=== PATIENT | female | born 1935 | race Caucasian/White ===

== ENCOUNTER 2019-09-11 01:08 | Emergency (ER) | payer OTHER, SELFPAY ==
--- NOTE | ~2019-09-11 | XR_ITS ---
XR chest 2V DATE: 09/11/2019 01:46 INDICATION: Shortness of breath TECHNIQUE: AP and lateral views COMPARISON: 01/03/2018 PA and lateral chest FINDINGS: There is bilateral hyperinflation, consistent with COPD. No pulmonary infiltrate or consolidation, pleural effusion or pulmonary vascular congestion or pneumo thorax. Normal heart size. No hilar or mediastinal enlargement. Scoliosis and degenerative change of the thoracic spine. IMPRESSION: COPD; no active cardiopulmonary disease Reviewed, dictated and finalized at location A.
[2019-09-11 01:07] VITALS: BP 161/67; PULSE 104; RESP 20; TEMP 36.8; O2SAT 96
--- NOTE | 2019-09-11 01:13 | ECG_ITS ---
Measurements Intervals [place] Rate: 100 P: 76 MS: 189 QRS: 74 QRSD: 89 T: 66 QT: 338 QTc: 436 Interpretive Statements SINUS TACHYCARDIA INCOMPLETE RIGHT BUNDLE BRANCH BLOCK BORDERLINE ECG Electronically Signed On 09-11-2019 7:04:59 CDT by Reji Collier D.O.
[2019-09-11 01:21] VITALS: PULSE 88; O2SAT 99
--- NOTE | 2019-09-11 01:31 | ED.SOB ---
HPI - SOB/Dyspnea General Chief Complaint: Shortness of Breath/Dyspnea Stated Complaint: sob Time Seen by Provider: 09/11/19 01:22 History of Present Illness HPI Narrative: Patient presents via EMS for severe shortness of breath at home. She woke up and was having an asthma attack. Her at home inhalers were not working. She got an albuterol treatment in route. She feels entirely better. She said that the albuterol is a new inhaler that does not work as well as the old one. She does not have a nebulizer at home. She has not been sick in the last 2 weeks. Particularly she denies fever chills and sweats. She has no pain. MD elicited complaint: shortness of breath and asthma attack Pertinent past history: asthma Onset (ago): hour(s) Timing: now resolved Severity: moderate Exacerbating factors: other (Unknown) Relieving factors: bronchodilators Known history of: asthma Associated symptoms: denies other symptoms Treatment prior to arrival: bronchodilator Related Data Allergies Allergy/AdvReac Type Severity Reaction Status Date / Time No Known Allergies Allergy Verified 05/10/18 08:56 Review of Systems Review of Systems: Narrative: CONSTITUTIONAL: Denies fever, chills, or sweats. EYES: Denies visual changes, redness, or discharge. ENT: Denies rhinorrhea, congestion, sore throat, or otalgia. CARDIOVASCULAR: Denies chest pain, palpitations, or edema. RESPIRATORY: She had dyspnea. GASTROINTESTINAL: Denies abdominal pain, nausea, vomiting, or diarrhea. GENITOURINARY: Denies dysuria or hematuria. SKIN: Denies rash or itching. MUSCULOSKELETAL: Denies back pain, joint pain, or myalgia. NEUROLOGIC: Denies headache, numbness, or weakness. All systems reviewed & are unremarkable except as noted in HPI and below PMFSH Past Medical History Medical History (Updated 09/11/19 @ 01:33 by Katherine Lynch MD) Asthma with exacerbation Family History Family History (Updated 10/03/13 @ 07:13 by DOCTOR UNKNOWN) Mother Hypertension Family history of Alzheimer's disease Father Family history of heart disease in male family member before age 55 Social History Social History Smoking status: Never smoker Alcohol intake: never Exam Narrative: Exam Narrative: GENERAL: Well-appearing, well-nourished, and in no acute distress. Perez roots are growing out. HEAD: Normocephalic, atraumatic. EYES: PERRLA and EOMI. ENT: Nares clear, no rhinorrhea or epistaxis. Mucous membranes moist. NECK: Supple. CHEST: Clear to auscultation. No respiratory distress. HEART: Regular rate and rhythm. No murmur heard. Normal peripheral pulses. ABDOMEN: Soft, nontender, nondistended, normal active bowel sounds. EXTREMITIES: Normal range of motion. No edema. SKIN: Warm, dry, no rash. NEURO: No focal deficits. Alert and oriented x3. PSYCH: Normal mood and affect. Course Vital Signs Vital signs: Vital Signs Temperature 98.2 F 09/11/19 01:07 Pulse Rate 104 H 09/11/19 01:07 Respiratory Rate 09/11/19 01:07 Blood Pressure 161/67 H 09/11/19 01:07 Pulse Oximetry 96 09/11/19 01:07 Temperature 98.2 F 09/11/19 01:07 Pulse Rate 104 H 09/11/19 01:07 Respiratory Rate 09/11/19 01:07 Blood Pressure 161/67 H 09/11/19 01:07 Pulse Oximetry 96 09/11/19 01:07 MDM - SOB/Dyspnea Differential Diagnosis Differential diagnosis: Likely asthma with exacerbation Medical Records Attestation: I reviewed the patient's medical records. Lab Data Attestation: I reviewed the patient's lab results. Result diagrams: 09/11/19 01:25 09/11/19 01:25 Labs: Lab Results 09/11/19 09/11/19 Range/Units 01:25 01:25 WBC 6.6 (4.5-10.0) K/mm3 RBC 3.98 L (4.2-5.4) M/mm3 Hgb 12.7 (12.0-15.0) g/dL Hct 39.2 (37.0-47.0) % MCV 98.5 (80-100) fl MCH 31.9 (26-34) pg MCHC 32.4 (32-36) g/dl RDW 13.1 (11.5-14.5) % Plt Count 194 (150-375) k/mm3 MPV 9.7 (7.4-10.4) fl Bernadine
[2019-09-11 01:32] LABS: Basophils Percent Auto 0.5 % (0.2-1.2); Eosinophils Absolute Auto 0.4 K/mm3 (0-0.3); Eosinophils Percent Auto 5.5 % (0-4.4); Hematocrit 39.2 % (37.0-47.0); Hemoglobin 12.7 g/dL (12.0-15.0); Immature Granulocyte Absolute 0.01 K/mm3 (0.00-0.031); Immature Granulocyte Percent A 0.2 % (0-0.5); Lymphocytes Absolute Auto 2.45 K/mm3 (0.9-3.2); Lymphocytes Percent Auto 37.4 % (18.3-44.2); Mean Corpuscular HGB Conc 32.4 g/dl (32-36); Mean Corpuscular Hemoglobin 31.9 pg (26-34); Mean Corpuscular Volume 98.5 fl (80-100); Mean Platelet Volume 9.7 fl (7.4-10.4); Monocytes Absolute Auto 0.6 K/mm3 (0.1-0.6); Monocytes Percent Auto 8.5 % (2.6-8.5); Neutrophils Absolute Auto 3.1 K/mm3 (1.3-6.7); Neutrophils Percent Auto 47.9 % (45.5-73.1); Platelet Count Result 194 k/mm3 (150-375); Red Blood Count 3.98 M/mm3 (4.2-5.4); Red Cell Distribution Width 13.1 % (11.5-14.5); White Blood Count 6.6 K/mm3 (4.5-10.0)
[2019-09-11 01:43] LABS: Anion Gap 13.6 mmol/L (7-16); Blood Urea Nitrogen 28 mg/dL (7-17); Calcium 8.8 mg/dL (8.4-10.2); Carbon Dioxide 24 mmol/L (22-30); Chloride 105 mmol/L (98-107); Estimated CRCL calculation 34 ml/min; Estimated Glomerular Filt Rate 53; Glucose 95 mg/dL (65-105); Potassium 3.6 mmol/L (3.4-5.0); Sodium 139 mmol/L (137-145)
[2019-09-11 02:34] VITALS: BP 138/63; PULSE 88; RESP 15; O2SAT 98
[2019-09-11 03:21] VITALS: BP 138/63; PULSE 85; RESP 14; TEMP 36.5; O2SAT 99
== END 2019-09-11 03:23 | disposition home or self-care (01) ==
PROVIDERS: Emergency Provider Emergency Medicine; PCP Physician Assistant
DX: J45.901 Unspecified asthma with (acute) exacerbation (principal); R00.0 Tachycardia, unspecified
CPT/HCPCS: 36415; 71046; 80048; 85025; 93005; 99284

== ENCOUNTER 2019-09-27 17:44 | Inpatient (IN) | payer OTHER, SELFPAY ==
[2019-09-27] VITALS (7 sets, daily range): BP systolic 135–167; BP diastolic 83–102; PULSE 94–107; RESP 20–24; TEMP 36.3–36.5; O2SAT 88–100; BMI 23.3
--- NOTE | ~2019-09-27 | XR_ITS ---
EXAMINATION: XR chest 2V DATE: 09/27/2019 18:56 INDICATION: Asthma presenting with shortness of breath one day post cataract surgery. TECHNIQUE: frontal and lateral views of the chest were obtained. COMPARISON: Chest radiograph dated 09/11/2019 FINDINGS: Chronic biapical pleural-parenchymal scarring. New subtle opacities at the posterior medial right sergio g base which could represent atelectasis or pneumonia. No pleural effusion or pneumothorax The cardio mediastinal silhouette is normal. Thoracic kyphosis with severe spondylosis and chronic mild anterior wedging of a few mid thoracic vertebral bodies. IMPRESSION: 1. New subtle opacities at the posterior medial right lower lobe which could represent atelectasis an d/or pneumonia. Reviewed, dictated and finalized at location A. IMPRESSION: 1. New subtle opacities at the posterior medial right lower lobe which could re present atelectasis and/or pneumonia.
--- NOTE | ~2019-09-27 | CT_ITS ---
EXAMINATION: CTA chest PE protocol DATE: 09/27/2019 22:18 INDICATION: Shortness of breath. Pneumonia. TECHNIQUE: Computed tomography (CT) pulmonary angiogram of the chest was performed with 100 mL Omnipa que-350 intravenous contrast. Additional 3D reconstructions utilizing coronal maximum intensity proje ction (MIP) were performed. Automated exposure control and iterative reconstruction technique were em ployed. The dose-length product was 288.61 mGy-cm. COMPARISON: None FINDINGS: Excellent contrast opacification of the pulmonary arteries. There is mild streak artifact from dense contrast in the superior vena cava and right atrium. Minimal scattered respiratory motion artifact wh ich does not significantly limit evaluation. No pulmonary embolism. Biapical pleural-parenchymal scar ring. Additional mild discoid atelectasis in the posterior aspect of the bilateral lower lobes. Mild septal line thickening at the lung bases consistent with minimal pulmonary edema. Diffuse bronchial w all thickening with scattered mucous plugging consistent with bronchitis. No pneumonia, pleural effus ion or pneumothorax. Heart size is normal. No pericardial effusion. Thoracic aorta is normal in calib er. No pathologically enlarged abdominal or pelvic lymphadenopathy. Thoracic kyphosis with moderate s pondylosis. IMPRESSION: 1. No pulmonary embolism. 2. Diffuse bronchitis with scattered mucous plugging but without focal pneumonia. 3. Mild discoid atelectasis and minimal pulmonary edema at the lung bases. Reviewed, dictated and finalized at location A. IMPRESSION: 1. No pulmonary embolism. 2. Diffuse bronchitis with scattered mucous plugging but without focal pneumoni a. 3. Mild discoid atelectasis and minimal pulmonary edema at the lung bases.
--- NOTE | 2019-09-27 17:52 | ECG_ITS ---
Measurements Intervals [place] Rate: 100 P: 80 AK: 188 QRS: -28 QRSD: 106 T: 74 QT: 347 QTc: 449 Interpretive Statements SINUS TACHYCARDIA INCOMPLETE RIGHT BUNDLE BRANCH BLOCK BASELINE ARTIFACT- I, II, AVL, V1-V2 BORDERLINE ECG Electronically Signed On 09-27-2019 19:37:38 CDT by Reji Collier D.O.
[2019-09-27 18:17] LABS: Basophils Percent Auto 0.4 % (0.2-1.2); Eosinophils Absolute Auto 0.3 K/mm3 (0-0.3); Eosinophils Percent Auto 4.3 % (0-4.4); Hematocrit 41.2 % (37.0-47.0); Hemoglobin 13.4 g/dL (12.0-15.0); Immature Granulocyte Absolute 0.02 K/mm3 (0.00-0.031); Immature Granulocyte Percent A 0.3 % (0-0.5); Lymphocytes Percent Auto 22.9 % (18.3-44.2); Mean Corpuscular HGB Conc 32.5 g/dl (32-36); Mean Corpuscular Hemoglobin 31.5 pg (26-34); Mean Corpuscular Volume 96.9 fl (80-100); Mean Platelet Volume 9.7 fl (7.4-10.4); Monocytes Absolute Auto 0.6 K/mm3 (0.1-0.6); Monocytes Percent Auto 8.2 % (2.6-8.5); Neutrophils Absolute Auto 4.7 K/mm3 (1.3-6.7); Neutrophils Percent Auto 63.9 % (45.5-73.1); Platelet Count Result 216 k/mm3 (150-375); Red Blood Count 4.25 M/mm3 (4.2-5.4); White Blood Count 7.4 K/mm3 (4.5-10.0)
[2019-09-27 18:30] LABS: Anion Gap 6 mmol/L (8-16); Blood Urea Nitrogen 19 mg/dL (7-17); Carbon Dioxide 23 mmol/L (22-30); Chloride 108 mmol/L (98-107); Estimated CRCL calculation 41 ml/min; Estimated Glomerular Filt Rate > 60; Glucose 150 mg/dL (65-105); Potassium 4.5 mmol/L (3.4-5.0); Sodium 137 mmol/L (137-145)
--- NOTE | 2019-09-27 19:55 | PC.NURSE ---
PT AMBULATED IN ROOM ON ROOM AIR. C/O SOB. 02 SAT 88-93% ON ROOM AIR.
--- NOTE | 2019-09-27 20:14 | ED.SOB ---
HPI - SOB/Dyspnea General Chief Complaint: Shortness of Breath/Dyspnea Stated Complaint: SOB Time Seen by Provider: 09/27/19 19:07 History of Present Illness HPI Narrative: Patient is an 84-year-old female who presents ER with shortness of breath. Patient reports she had applied some eyedrops to her eyes started last evening when she then developed shortness of breath and a runny nose. Patient reports shortness of breath is mildly improved. She used her inhaler with minimal improvement originally. No chest pain at this time. Patient reports she had a surgery yesterday to remove film from the front of her eye after cataract surgery some years ago. No history of blood clots. Denies fevers or chills or sweats. She does have a new runny nose. She did not receive COVID prescreening prior to her procedure. Related Data Home Medications Medication Instructions Recorded Confirmed albuterol sulfate 2 puff INHALATION Q6H PRN 09/27/19 09/28/19 benazepril 40 mg PO DAILY 09/27/19 09/28/19 fluticasone propionate 1 spray INTRANASAL DAILY 09/27/19 09/28/19 hydrochlorothiazide 25 mg PO DAILY 09/27/19 09/28/19 inhalational spacing device 09/27/19 09/28/19 [[facility] Patel [facility]] loratadine 10 mg PO DAILY 09/27/19 09/28/19 meclizine 25 mg PO TID PRN 09/27/19 09/28/19 metformin 1,000 mg PO DAILY 09/27/19 09/28/19 phenytoin sodium extended 100 mg PO QAM 09/27/19 09/28/19 simvastatin 80 mg PO QAM 09/27/19 09/28/19 phenytoin sodium extended 200 mg PO HS 09/28/19 09/28/19 Allergies Allergy/AdvReac Type Severity Reaction Status Date / Time No Known Allergies Allergy Verified 09/27/19 18:00 Review of Systems Review of Systems: All systems reviewed & are unremarkable except as noted in HPI and below Constitutional: Constitutional: Denies chills, Denies fever(s) and Reports weakness ENT: Reports nasal congestion and Denies sore throat Cardiovascular: Cardiovascular: Denies chest pain and Denies radiating jaw, neck or arm pain Respiratory: Respiratory: Denies cough, Reports dyspnea and Reports wheezing Gastrointestinal: Gastrointestinal: Denies abdominal pain, Denies nausea and Denies vomiting PMF Past Medical History Medical History (Updated 09/28/19 @ 03:18 by Binh Bean MD) Asthma Diabetes type 2, controlled Essential hypertension GERD (gastroesophageal reflux disease) Hyperlipidemia Kidney stones 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 She has not had a seizure in 15 years. 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 She does not feel she would want have cardiopulmonary resuscitation if her heart were to stop. She would not want to be on a ventilator even for short term. Smoking status: Never smoker Alcohol intake: never Substance use: never Additional living arrangements comments: The patient lives in her own home. Her adult son lives with her. She has 2 daughters and 1 son. She is independent in her activities of daily living and does her own law
--- NOTE | 2019-09-27 22:30 | ADMGEN ---
This patient, Norma Chinchilla, was admitted to 3 Med Surg Room 330-01. Patient/family oriented to hospital policies and general routines including ID bracelet, bed and alarms, visiting hours, pain management, procedures, bathroom and other care routines, personal items, smoking policy, room service/diet, and visiting hours. Valuables list has been completed. Information on how to activate the Rapid Response Team has been discussed. Patient/Family are encouraged to report perceived risks to care and to ask questions if they do not understand what they are told or what they should do.
--- NOTE | 2019-09-27 23:33 | PM.IMHP ---
H&P: HPI History of Present Illness Date/Time: 09/27/19 21:20 Chief complaint: sudden shortness of breath Narrative: Norma Chinchilla is a 84 year old female with a past medical history of asthma since childhood who presented to the ER via EMS with sudden onset of shortness of breath. The patient reports that she had at surgery on 09/26/2019 to correct scarring from her prior cataract procedure. She had applied her steroid eye drops to her eyes and almost immediately thereafter became acutely short of breath. She denied having any cough for congestion until she arrived in the ER at which time she did have some nonproductive coughing. She had received 2 nebulizer treatments in route to the ER. She reports that her chest feels tight in almost burning like she feels if she works out to side too much. She also reports that she has had similar symptoms in the past with anxiety attacks and told nursing staff that she felt as if she may be having an anxiety attack. She denies any recent ill contacts and has been social distancing. Her son works as a [employer] mixer /concrete mixer truck driver and his been working in the community. He has not been ill. She denies any fevers or chills. She has not had any nausea or vomiting. She has had a good appetite without changes in her sense of taste or smell. She denies changes in her bowel habits, hematochezia or melena. She does have a history of colon polyps and is a little bit overdue for her repeat colonoscopy. She does have occasional stress urinary incontinence and wears pads daily. She is independent in her activities of daily living in usually does her own yard work and housework. She does have type 2 diabetes but her glucoses have been well controlled her last Accu-Chek at home was 92. She reports that she uses her rescue inhaler to her 3 times a day at home but it does not seem to provide much help. She has never been intubated due to her asthma. She was referred to a jewelry salesperson recently but has not heard back from the jewelry salesperson office regarding an appointment. Review of Systems Review of Systems: Narrative: 12 systems were reviewed with pertinent positives and negatives per HPI. Except as documented in the HPI, all other systems were reviewed and are negative. [facility] Past Medical History Medical History (Updated 09/28/19 @ 03:18 by Binh Bean MD) Asthma Diabetes type 2, controlled Essential hypertension GERD (gastroesophageal reflux disease) Hyperlipidemia Kidney stones 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 She has not had a seizure in 15 years. 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 She does not feel she would want have cardiopulmonary resuscitation if her heart were to stop. She would not want to be on a ventilator even for short term. Smoking status: Never smoker Alcohol intake: never Substance use: never Additional living arrangements comments: The patient lives in her own home. Her adult son lives with her. She has 2 daughters and 1 son. She is independent in her activities of daily living and does her own lawn and house care. Additional occupation/education comments: Homemaker Gender identity (if verbalized by the patient): Female Spiritual care concerns:
[2019-09-28] VITALS (9 sets, daily range): BP systolic 100–134; BP diastolic 46–85; PULSE 81–102; RESP 16–20; TEMP 36.4–37.1; O2SAT 88–98
[2019-09-28] MEDS: guaiFENesin 12 HR 600 MG TABCR 1200 MG PO ×3 (00:39→21:06)
[2019-09-28 08:16] LABS: Basophils Percent Auto 0.1 % (0.2-1.2); Hematocrit 40.9 % (37.0-47.0); Hemoglobin 13.7 g/dL (12.0-15.0); Immature Granulocyte Absolute 0.03 K/mm3 (0.00-0.031); Immature Granulocyte Percent A 0.3 % (0-0.5); Lymphocytes Absolute Auto 1.48 K/mm3 (0.9-3.2); Lymphocytes Percent Auto 15.5 % (18.3-44.2); Mean Corpuscular HGB Conc 33.5 g/dl (32-36); Mean Corpuscular Hemoglobin 32.1 pg (26-34); Mean Corpuscular Volume 95.8 fl (80-100); Monocytes Absolute Auto 0.7 K/mm3 (0.1-0.6); Monocytes Percent Auto 7.8 % (2.6-8.5); Neutrophils Absolute Auto 7.3 K/mm3 (1.3-6.7); Neutrophils Percent Auto 76.3 % (45.5-73.1); Platelet Count Result 208 k/mm3 (150-375); Red Blood Count 4.27 M/mm3 (4.2-5.4); Red Cell Distribution Width 12.9 % (11.5-14.5); White Blood Count 9.5 K/mm3 (4.5-10.0)
[2019-09-28 08:26] LABS: Glucose Point of Care 95 (65-105)
[2019-09-28 08:55] LABS: Alanine Aminotransferase 19 U/L (4-35); Albumin Level 3.9 g/dL (3.5-5.1); Alkaline Phosphatase 127 U/L (38-126); Anion Gap 6 mmol/L (8-16); Aspartate Amino Transferase 41 U/L (14-36); Bilirubin,Total 0.3 mg/dL (0.2-1.3); Blood Urea Nitrogen 17 mg/dL (7-17); CRP < 0.5 mg/dL (<1.0); Calcium 8.8 mg/dL (8.4-10.2); Carbon Dioxide 24 mmol/L (22-30); Chloride 106 mmol/L (98-107); Estimated CRCL calculation 41 ml/min; Estimated Glomerular Filt Rate > 60; Glucose 106 mg/dL (65-105); Lactate Dehydrogenase 458 U/L (313-618); Potassium 4.5 mmol/L (3.4-5.0); Sodium 136 mmol/L (137-145)
[2019-09-28] MEDS: SIMVASTATIN 20 MG TABLET 80 MG PO (09:23)
[2019-09-28] MEDS: PHENYTOIN SODIUM 100 MG CAP PO ×2 (09:23→12:33)
[2019-09-28] MEDS: metFORMIN HCL 500 MG TABLET 1000 MG PO (09:23)
[2019-09-28] MEDS: ENOXAPARIN 40 MG/0.4 ML SYRINGE SUB-Q (09:23)
[2019-09-28] MEDS: LORATADINE 10 MG TABLET PO (09:24)
[2019-09-28] MEDS: lisinopriL 20 MG TABLET 40 MG PO (09:24)
[2019-09-28] MEDS: FLUTICASONE PROPIONATE 0.05% NA SPR 16 GM BTL (*BKC) 1 SPRAY NASAL (09:24)
[2019-09-28] MEDS: hydroCHLOROthiazide 25 MG TABLET PO (09:24)
--- NOTE | 2019-09-28 12:06 | PM.IMPN ---
Progress Note: A&P Assessment and Plan (1) Acute respiratory failure with hypoxia: Code(s): J96.01 - Acute respiratory failure with hypoxia Status: Acute Assessment and Plan: Due to acute bronchitis and mucus plugging. Patient was hypoxic to 88% with ambulation. She is currently maintaining adequate oxygenation on 2L. Scheduled albuterol inhalers and Spiriva Discontinue IV Decadron as patient is covid negative. Will begin PO Prednisone Mucolytic therapy Wean oxygen as tolerated to maintain saturations greater than 92% (2) Acute bronchitis: Qualifiers: Bronchitis organism: unspecified organism Qualified Code(s): J20.9 - Acute bronchitis, unspecified Code(s): J20.9 - Acute bronchitis, unspecified Status: Acute Assessment and Plan: CTA shows diffuse bronchitis with scattered mucus plugging. Mucinex bid Discontinue antibiotics. Most likely viral in origin. (3) Asthma with exacerbation: Qualifiers: Asthma persistence: unspecified Asthma severity: moderate Qualified Code(s): J45.901 - Unspecified asthma with (acute) exacerbation Code(s): J45.901 - Unspecified asthma with (acute) exacerbation Status: Acute Assessment and Plan: Patient had chest tightness and wheezing. Hypoxic initially and requiring 2L O2. Transition to nebulized albuterol as patient is COVID negative. Spiriva D/c dexamethasone. Begin PO Prednisone taper Wean oxygen as tolerated. (4) Tachycardia: Code(s): R00.0 - Tachycardia, unspecified Status: Acute Assessment and Plan: Patient intermittently tachycardic. Given tachycardia and hypoxia, CTA was performed and was negative for pulmonary embolism. Tachycardia has improved. Suspect this may related to albuterol. monitor heart rate (5) COVID-19 ruled out by laboratory testing: Code(s): Z03.818 - Encounter for observation for suspected exposure to other biological agents ruled out Status: Acute Assessment and Plan: tested negative on 09/27/2019. Discontinue isolation precautions (6) Diabetes type 2, controlled: Code(s): E11.9 - Type 2 diabetes mellitus without complications Status: Acute Assessment and Plan: Blood sugars were reviewed and are well controlled. Continue accuchecks ACHS and hypoglycemic protocol (7) Essential hypertension: Code(s): I10 - Essential (primary) hypertension Status: Acute Assessment and Plan: Blood pressures were reviewed and are stable. Continue lisinopril and HCTZ Subjective Date/time seen: 09/28/19 12:06 Interval history: Date of service: 09/28/2019 Patient is an 84-year-old female with history of asthma, DM, HTN, and HLD who is here for shortness of breath. She reports that she is feeling better today. Her shortness of breath has improved a bit but she still is having VIDES. She endorses orthopnea. She denies wheezing but notes she was wheezing yesterday. She has no chest tightness. She denies cough. She denies any chest pain or palpitations. She denies cough or congestion. She denies any reflux symptoms. She denies dysphagia. She tells me that she recently had an episode where she was hospitalized for shortness of breath and felt that it was due to a panic attack, but tells me that now she is not anxious and this is different than previous time. She can't think of anything that exacerbated her shortness of breath. She denies abdominal pain, nausea, vomiting, or diarrhea. She denies any urinary symptoms. Her appetite has been fair. She denies weakness, dizziness, lightheadedness, fevers, or chills. she has no additional concerns at this time. Review of Systems Review of Systems: Narrative: A 12 point review of systems was reviewed with pertinent positives and negatives as per HPI. Exam Narrative: Exam Narrative: Ms. Chinchilla is a
[2019-09-28 14:56] LABS: Glucose Point of Care 91 (65-105)
[2019-09-28 14:58] LABS: SARS-CoV-2 RNA PCR Negative
[2019-09-28] MEDS: predniSONE 20 MG TABLET 40 MG PO (17:27)
[2019-09-28 18:46] LABS: Glucose Point of Care 116 (65-105)
[2019-09-28] MEDS: ALBUTEROL SULFATE NEB 2.5 MG/0.5 ML INH INHALATION (19:33)
[2019-09-28] MEDS: PHENYTOIN SODIUM 100 MG CAP 200 MG PO (21:05)
[2019-09-28 22:31] LABS: Glucose Point of Care 148 (65-105)
[2019-09-29] VITALS (22 sets, daily range): BP systolic 90–112; BP diastolic 43–55; PULSE 70–95; RESP 16–18; TEMP 36.1–36.8; O2SAT 94–98
[2019-09-29] MEDS: ALBUTEROL SULFATE NEB 2.5 MG/0.5 ML INH INHALATION ×7 (00:14→23:24)
[2019-09-29 06:31] LABS: Hematocrit 37.4 % (37.0-47.0); Hemoglobin 12.4 g/dL (12.0-15.0); Mean Corpuscular HGB Conc 33.2 g/dl (32-36); Mean Corpuscular Hemoglobin 31.9 pg (26-34); Mean Corpuscular Volume 96.1 fl (80-100); Mean Platelet Volume 10.1 fl (7.4-10.4); Platelet Count Result 186 k/mm3 (150-375); Red Blood Count 3.89 M/mm3 (4.2-5.4); Red Cell Distribution Width 12.7 % (11.5-14.5); White Blood Count 6.7 K/mm3 (4.5-10.0)
[2019-09-29 07:15] LABS: Anion Gap 6 mmol/L (8-16); Blood Urea Nitrogen 26 mg/dL (7-17); Calcium 8.8 mg/dL (8.4-10.2); Carbon Dioxide 25 mmol/L (22-30); Chloride 104 mmol/L (98-107); Estimated CRCL calculation 30 ml/min; Estimated Glomerular Filt Rate 48; Glucose 94 mg/dL (65-105); Potassium 4.1 mmol/L (3.4-5.0); Sodium 135 mmol/L (137-145)
[2019-09-29] MEDS: metFORMIN HCL 500 MG TABLET 1000 MG PO (08:17)
[2019-09-29] MEDS: ENOXAPARIN 40 MG/0.4 ML SYRINGE SUB-Q (08:18)
[2019-09-29] MEDS: predniSONE 20 MG TABLET 40 MG PO (08:18)
[2019-09-29] MEDS: FLUTICASONE PROPIONATE 0.05% NA SPR 16 GM BTL (*BKC) 1 SPRAY NASAL (08:19)
[2019-09-29] MEDS: guaiFENesin 12 HR 600 MG TABCR 1200 MG PO ×2 (08:19→19:57)
[2019-09-29] MEDS: PHENYTOIN SODIUM 100 MG CAP PO ×2 (08:21→12:21)
[2019-09-29] MEDS: SIMVASTATIN 20 MG TABLET 80 MG PO (08:22)
[2019-09-29] MEDS: LORATADINE 10 MG TABLET PO (08:22)
[2019-09-29 08:30] LABS: Glucose Point of Care 90 (65-105)
[2019-09-29] MEDS: SODIUM CHLORIDE 0.9% IV 500 ML 250 ML IV CONT ×2 (08:51→18:40)
[2019-09-29 12:46] LABS: Glucose Point of Care 135 (65-105)
--- NOTE | 2019-09-29 17:21 | PM.IMPN ---
Progress Note: A&P Assessment and Plan (1) Acute respiratory failure with hypoxia: Code(s): J96.01 - Acute respiratory failure with hypoxia Status: Acute Assessment and Plan: Due to acute bronchitis and mucus plugging. Patient was hypoxic to 88% with ambulation. this has resolved and she has been weaned to room air. Scheduled albuterol nebulizers IV dexamethasone discontinued 09/27 given negative COVID test. PO prednisone initiated 09/27. Mucolytic therapy (2) Acute bronchitis: Qualifiers: Bronchitis organism: unspecified organism Qualified Code(s): J20.9 - Acute bronchitis, unspecified Code(s): J20.9 - Acute bronchitis, unspecified Status: Acute Assessment and Plan: CTA shows diffuse bronchitis with scattered mucus plugging. Mucinex bid Antibiotics were discontinued as this was felt to be viral in origin. (3) Asthma with exacerbation: Qualifiers: Asthma persistence: unspecified Asthma severity: moderate Qualified Code(s): J45.901 - Unspecified asthma with (acute) exacerbation Code(s): J45.901 - Unspecified asthma with (acute) exacerbation Status: Acute Assessment and Plan: Patient had chest tightness and wheezing. Hypoxic initially and requiring 2L O2. She has been weaned to room air and is maintaining adequate oxygen saturations. Nebulized albuterol Continue p.o. prednisone taper. Received 40 mg prednisone day 2. (4) Tachycardia: Code(s): R00.0 - Tachycardia, unspecified Status: Acute Assessment and Plan: Patient intermittently tachycardic. Given tachycardia and hypoxia, CTA was performed and was negative for pulmonary embolism. Tachycardia has resolved. Suspect this was secondary to albuterol. monitor heart rate (5) Diabetes type 2, controlled: Qualifiers: Diabetes mellitus residential insulin use: without terminal superintendent use Diabetes mellitus complication status: without complication Qualified Code(s): E11.9 - Type 2 diabetes mellitus without complications Code(s): E11.9 - Type 2 diabetes mellitus without complications Status: Acute Assessment and Plan: Blood sugars were reviewed and are well controlled. Continue accuchecks ACHS and hypoglycemic protocol (6) Hypotension: Qualifiers: Hypotension type: unspecified hypotension type Qualified Code(s): I95.9 - Hypotension, unspecified Code(s): I95.9 - Hypotension, unspecified Status: Acute Assessment and Plan: Blood pressure was low this morning at 90/50. She was asymptomatic. She is not orthostatic. she received 250 cc fluid bolus which increased blood pressures, however remain low. Hold HCTZ and lisinopril Begin cautious IV fluids Monitor orthostatics each shift (7) COVID-19 ruled out by laboratory testing: Code(s): Z03.818 - Encounter for observation for suspected exposure to other biological agents ruled out Status: Acute Assessment and Plan: tested negative on 09/27/2019. Discontinue isolation precautions Subjective Date/time seen: 09/29/19 17:21 Interval history: Date of service: 09/29/2019 Patient is an 84-year-old female with history of asthma, DM, HTN, and HLD who is here for shortness of breath felt to be secondary to bronchitis and asthma exacerbation. Reports she is feeling well today. Her shortness of breath has improved and she no longer feels that she is wheezing. She is coughing occasionally but has nonproductive cough. She denies chest tightness, chest pain, orthopnea, VIDES, or palpitations. She denies dizziness, lightheadedness, weakness, fatigue, or positional symptoms. She reports she has been eating well and drinking plenty of water. She denies nausea, vomiting, fever, chills, abdominal pain, or diarrhea. She has been urinating regularly. She slept well last night. Review of Systems
[2019-09-29 17:35] LABS: Glucose Point of Care 126 (65-105)
[2019-09-29] MEDS: PHENYTOIN SODIUM 100 MG CAP 200 MG PO (19:57)
[2019-09-29 20:08] LABS: Glucose Point of Care 185 (65-105)
[2019-09-30] VITALS (10 sets, daily range): BP systolic 110–115; BP diastolic 42–60; PULSE 84–110; RESP 16–20; TEMP 36.8; O2SAT 96
[2019-09-30] MEDS: ALBUTEROL SULFATE NEB 2.5 MG/0.5 ML INH INHALATION ×3 (04:09→11:52)
[2019-09-30 06:48] LABS: Hematocrit 36.1 % (37.0-47.0); Hemoglobin 11.7 g/dL (12.0-15.0); Mean Corpuscular HGB Conc 32.4 g/dl (32-36); Mean Corpuscular Hemoglobin 31.4 pg (26-34); Mean Corpuscular Volume 96.8 fl (80-100); Platelet Count Result 173 k/mm3 (150-375); Red Blood Count 3.73 M/mm3 (4.2-5.4); Red Cell Distribution Width 12.7 % (11.5-14.5); White Blood Count 6.2 K/mm3 (4.5-10.0)
[2019-09-30 07:03] LABS: Alanine Aminotransferase 17 U/L (4-35); Albumin Level 3.5 g/dL (3.5-5.1); Alkaline Phosphatase 91 U/L (38-126); Anion Gap 7 mmol/L (8-16); Aspartate Amino Transferase 30 U/L (14-36); Bilirubin,Total 0.2 mg/dL (0.2-1.3); Blood Urea Nitrogen 26 mg/dL (7-17); Calcium 8.4 mg/dL (8.4-10.2); Carbon Dioxide 21 mmol/L (22-30); Chloride 109 mmol/L (98-107); Estimated CRCL calculation 37 ml/min; Estimated Glomerular Filt Rate 60; Glucose 92 mg/dL (65-105); Potassium 3.7 mmol/L (3.4-5.0); Sodium 137 mmol/L (137-145)
[2019-09-30 08:12] LABS: Glucose Point of Care 79 (65-105)
[2019-09-30] MEDS: SIMVASTATIN 20 MG TABLET 80 MG PO (08:24)
[2019-09-30] MEDS: ENOXAPARIN 40 MG/0.4 ML SYRINGE SUB-Q (08:24)
[2019-09-30] MEDS: PHENYTOIN SODIUM 100 MG CAP PO ×2 (08:24→12:00)
[2019-09-30] MEDS: lisinopriL 20 MG TABLET 40 MG PO (08:25)
[2019-09-30] MEDS: LORATADINE 10 MG TABLET PO (08:25)
[2019-09-30] MEDS: predniSONE 20 MG TABLET 40 MG PO (08:26)
[2019-09-30] MEDS: metFORMIN HCL 500 MG TABLET 1000 MG PO (08:26)
[2019-09-30] MEDS: guaiFENesin 12 HR 600 MG TABCR 1200 MG PO (08:26)
[2019-09-30] MEDS: FLUTICASONE PROPIONATE 0.05% NA SPR 16 GM BTL (*BKC) 1 SPRAY NASAL (08:27)
--- NOTE | 2019-09-30 11:32 | PCRCNOTE ---
PATIENT WAS OKAY WITH SETTING [facility]ULIZ[facility]. PATIENT HAS [employer] INSUR[employer].
[2019-09-30 12:25] LABS: Glucose Point of Care 118 (65-105)
[2019-09-30 12:39] LABS: Glucose Point of Care 120 (65-105)
--- NOTE | 2019-09-30 12:39 | PM.DS ---
DS: Admitting Diagnosis Admitting Diagnosis Admitting Diagnosis: sudden shortness of breath DS: Discharge Diagnosis Discharge Diagnosis (1) Acute respiratory failure with hypoxia: Code(s): J96.01 - Acute respiratory failure with hypoxia Status: Acute Assessment and Plan: Due to acute bronchitis and mucus plugging. Patient was hypoxic to 88% with ambulation. This resolved and she was weaned to room air. IV dexamethasone discontinued after 2 doses given negative COVID test. PO prednisone initiated 09/27 and will continue outpatient taper. (2) Acute bronchitis: Qualifiers: Bronchitis organism: unspecified organism Qualified Code(s): J20.9 - Acute bronchitis, unspecified Code(s): J20.9 - Acute bronchitis, unspecified Status: Acute Assessment and Plan: CTA showed diffuse bronchitis with scattered mucus plugging. Started on 5 days of PO Azithromycin. (3) Asthma with exacerbation: Qualifiers: Asthma persistence: unspecified Asthma severity: moderate Qualified Code(s): J45.901 - Unspecified asthma with (acute) exacerbation Code(s): J45.901 - Unspecified asthma with (acute) exacerbation Status: Acute Assessment and Plan: Patient had chest tightness and wheezing. Hypoxic initially and requiring 2L O2 but was weaned to room air. Continue PO prednisone taper as above. She received nebulized albuterol and was set up with a nebulizer for home at her request. (4) Tachycardia: Code(s): R00.0 - Tachycardia, unspecified Status: Acute Assessment and Plan: Patient intermittently tachycardic. Given tachycardia and hypoxia, CTA was performed and was negative for pulmonary embolism. Tachycardia resolved and I suspect this was secondary to albuterol. (5) Diabetes type 2, controlled: Qualifiers: Diabetes mellitus care home insulin use: without remote computer terminal operator use Diabetes mellitus complication status: without complication Qualified Code(s): E11.9 - Type 2 diabetes mellitus without complications Code(s): E11.9 - Type 2 diabetes mellitus without complications Status: Acute Assessment and Plan: Blood sugars were reviewed and were well controlled. (6) Hypotension: Qualifiers: Hypotension type: unspecified hypotension type Qualified Code(s): I95.9 - Hypotension, unspecified Code(s): I95.9 - Hypotension, unspecified Status: Acute Assessment and Plan: Blood pressure was low-normal with asymptomatic hypotension. She was not orthostatic. She received IV fluid bolus which improved pressures. She was felt to be euvolemic. HCTZ was held. Lisinopril continued and recommended monitoring blood pressures at home. She remained asymptomatic. (7) COVID-19 ruled out by laboratory testing: Code(s): Z03.818 - Encounter for observation for suspected exposure to other biological agents ruled out Status: Acute Assessment and Plan: Tested negative on 09/27/2019. DS: Summary Hospital Course Reason for hospitalization: Shortness of breath Hospital Course: Date of admission: 09/27/2019 Date of discharge: 09/30/2019 Norma Chinchilla is a 84 year old female with a history of asthma, type 2 DM, HTN, and HLD who presented to the ED on 09/27/2019 with complaints of sudden onset of shortness of breath without cough or congestion. She used albuterol inhaler at home with minimal improvement in symptoms. At presentation, she was noted to be hypoxic with ambulation to 88%, and chest CTA was performed which was negative for PE but showed diffuse bronchitis with scattered mucus plugging and no focal pneumonia. She was admitted to the hospitalist service for further evaluation and treatment. She tested negative for COVID-19. Her shortness of breath improved and she was weaned to room air. She was started on bronchodilators and PO prednisone taper. She began feeling much better and was eager f
== END 2019-09-30 14:05 | disposition home or self-care (01) | DRG 202 ==
LOC: ANHED 20:51 → ANH3MEDSUR 21:44
PROVIDERS: Emergency Medicine; Physician Assistant; Admitting Provider Internal Medicine; Emergency Provider Emergency Medicine; PCP Physician Assistant; Visit Provider Internal Medicine
DX: J20.9 Acute bronchitis, unspecified (principal); J96.01 Acute respiratory failure with hypoxia; J45.901 Unspecified asthma with (acute) exacerbation; E11.9 Type 2 diabetes mellitus without complications; I10 Essential (primary) hypertension; Z03.818 Encounter for observation for suspected exposure to other biological agents ruled out
CPT/HCPCS: 36415; 71046; 71275; 80048; 80053; 82728; 83615; 85025; 85027; 86140; 87635; 93005; 94640; 96365; 96375; 99285; A9270; C9803; G0378; J0456; J0696; J1100; J1650; J7040; J7512; Q9967; U0003

== ENCOUNTER → 2019-10-08 16:26 | Outpatient (CLI) | payer OTHER, SELFPAY ==
--- NOTE | ~2019-10-08 | MM_ITS ---
EXAMINATION: MM screening kelly BI w eddie HISTORY: Screening TECHNIQUE: Craniocaudal and mediolateral oblique 3-D tomosynthesis images were obtained and synthetic 2-D images were generated. CAD analysis was submitted and interpreted. COMPARISON: Comparison to multiple prior studies sequentially, with oldest reviewed study dated 02/2012. BREAST PARENCHYMAL COMPOSITION: There are scattered areas of fibroglandular density. FINDINGS: There is no evidence of suspicious mass, calcification, or architectural distortion to sugg est malignancy in either breast. There has been no suspicious interval change. IMPRESSION: 1. No mammographic evidence of malignancy. 2. Recommend routine screening mammography in one year. BI-RADS Category 1: Negative Reviewed, dictated and finalized at location A.
== END ==
PROVIDERS: Visit Provider Physician Assistant
DX: Z12.31 Encounter for screening mammogram for malignant neoplasm of breast (principal)
CPT/HCPCS: 77063; 77067

== ENCOUNTER 2019-12-09 09:08 | Outpatient (CLI) | payer OTHER, SELFPAY ==
--- NOTE | ~2019-12-09 | XR_ITS ---
EXAMINATION: XR chest 2V DATE: 12/09/2019 09:32 INDICATION: Shortness of breath, recent pneumonia TECHNIQUE: Frontal and lateral views of the chest are obtained COMPARISON: 09/27/2019 FINDINGS: The lungs are free of acute opacities. There is mild scarring of the lung apices. There is no pleural effusion or pneumothorax. The cardiomediastinal silhouette is normal. There is moderate th oracic spondylosis. IMPRESSION: 1. No acute cardiopulmonary abnormality. Reviewed, dictated and finalized at location A. OISOTOPE TECHNOLOGIST
== END 2019-12-09 09:09 | disposition home or self-care (01) ==
LOC: ANHIMG 09:15
PROVIDERS: PCP Physician Assistant; Visit Provider Physician Assistant
DX: J18.9 Pneumonia, unspecified organism (principal)
CPT/HCPCS: 71046

== ENCOUNTER → 2020-10-27 10:46 | Outpatient (CLI) | payer OTHER, SELFPAY ==
--- NOTE | ~2020-10-27 | DEXA_ITS ---
Bone Density Report Name: Norma Chinchilla Age: 85 Sex: Female Ethnicity: White Date of : 1935 Indication: osteopenia; height loss; asthma or emphysema; hysterectomy; Referring Provider: SAMIRAETHEL Study: Bone densitometry was performed. Exam Date: October 27, 2020 Accession number: [id number] Bone Density: Region BMD T-score Z-score Classification AP Spine (L1-L4) 0.965 -0.7 2.1 Normal Femoral Neck (Left) 0.652 -1.8 0.7 Osteopenia Total Hip (Left) 0.784 -1.3 1.0 Osteopenia Femoral Neck (Right) 0.613 -2.1 0.3 Osteopenia Total Hip (Right) 0.764 -1.5 0.8 Osteopenia Total Hip Mean 0.774 -1.4 0.9 Osteopenia World Health Organization criteria for BMD impression classify patients as: Normal (T-score at or above -1.0), Osteopenia (T-score between -1.0 and -2.5), or Osteoporosis (T-score at or below -2.5). 10-year Fracture Risk(1): Major Osteoporotic Fracture 16% Hip Fracture 5.1% Reported Risk Factors: [place] (), Neck BMD=0.613, BMI=25.2 (1) FRAX(R) Version 3.08. Fracture probability calculated for an untreated patient. Fracture probability may be lower if the patient has received treatment. Previous Exams: Region Exam Age BMD T-score BMD Change BMD Change Date g/cm2 vs Baseline vs Previous AP Spine(L1-L4) 10/27/2020 85 0.965 -0.7 -0.025* -0.025* 06/08/2018 83 0.990 -0.5 Total Hip(Left) 10/27/2020 85 0.784 -1.3 -0.031* -0.031* 06/08/2018 83 0.815 -1.0 Total Hip(Right) 10/27/2020 85 0.764 -1.5 -0.006 -0.006 06/08/2018 83 0.770 -1.4 *Denotes significance at 95% confidence level, LSC for AP Spine = 0.022 g/cm2, LSC for Total Hip = 0.027 g/cm2 Clinical Information Provided by Patient: Has used the following medications: Vitamin D Has the following medical conditions: Asthma or Emphysema, Hysterectomy Patient maximum height was 65.5 Menopause Age: 43 Does not regularly consume dairy products Drinks caffeinated beverages Onset of menses at age 15 Number of children 3 Impression: The patient has low bone mass, based on the Right Femoral Neck T-score. The patient has an estimated ten-year risk of hip fracture of 5.1% and an estimated ten-year risk of major fracture of 16%, based on the WHO FRAX algorithm. The BMD for the AP Spine(L1-L4) decreased, changing by -0.025 since the last DXA exam. The BMD for the Total Hip(Left) decreased, changing by -0.
== END ==
PROVIDERS: PCP Physician Assistant; Visit Provider Physician Assistant
DX: Z78.0 Asymptomatic menopausal state (principal); M85.852 Other specified disorders of bone density and structure, left thigh; M85.851 Other specified disorders of bone density and structure, right thigh
CPT/HCPCS: 77080

== ENCOUNTER 2021-07-12 10:11 | Emergency (ER) | payer MEDICARE, SELFPAY ==
[2021-07-12 10:44] VITALS: BP 131/61; PULSE 89; RESP 18; TEMP 36.9; O2SAT 98
--- NOTE | 2021-07-12 10:56 | ED.SKABFB ---
HPI - Skin/Abscess/Foreign Bdy General Chief complaint: Skin/Abscess/Foreign Body Stated complaint: rt hand pain Time Seen by Provider: 07/12/21 10:56 Source: patient Mode of arrival: ambulatory Limitations: no limitations History of Present Illness HPI narrative: 86-year-old female presents with complaint of redness, swelling, pain to left hand after doing yard work. Was pulling weeds 2 days ago. Not wearing any garden gloves. Was also spraying a weed spray. States it is possible that chemical got onto her hands. Denies fever chills. Range of motion and distal neurovascularly intact to left hand. All systems reviewed and negative except as noted above. Related Data Home Medications Medication Instructions Recorded Confirmed benazepril 40 mg tablet 40 mg PO DAILY 09/27/19 09/28/19 hydrochlorothiazide 25 mg tablet 25 mg PO DAILY 09/27/19 09/28/19 inhalational spacing device 09/27/19 09/28/19 ([facility] spacer) loratadine 10 mg tablet 10 mg PO DAILY 09/27/19 09/28/19 meclizine 25 mg tablet 25 mg PO TID PRN Dizziness 09/27/19 09/28/19 metformin 1,000 mg tablet 1,000 mg PO DAILY 09/27/19 09/28/19 phenytoin sodium extended 100 mg 100 mg PO QAM 09/27/19 09/28/19 capsule simvastatin 80 mg tablet 80 mg PO QAM 09/27/19 09/28/19 phenytoin sodium extended 100 mg 200 mg PO HS 09/28/19 09/28/19 capsule Allergies Allergy/AdvReac Type Severity Reaction Status Date / Time No Known Allergies Allergy Verified 07/12/21 11:03 Review of Systems Review of Systems: CONSTITUTIONAL: Denies fever, chills, or sweats. EYES: Denies visual changes, redness, or discharge. ENT: Denies rhinorrhea, congestion, sore throat, or otalgia. CARDIOVASCULAR: Denies chest pain, palpitations, or edema. RESPIRATORY: Denies cough or dyspnea. GASTROINTESTINAL: Denies abdominal pain, nausea, vomiting, or diarrhea. GENITOURINARY: Denies dysuria or hematuria. SKIN: Denies rash or itching. Reports redness, swelling and tenderness to left hand. MUSCULOSKELETAL: Denies back pain, joint pain, or myalgia. NEUROLOGIC: Denies headache, numbness, or weakness. PSYCHIATRIC: Denies anxiety or depression. All other systems reviewed are negative, except as documented in HPI. 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 She has not had a seizure in 15 years. 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 She does not feel she would want have cardiopulmonary resuscitation if her heart were to stop. She would not want to be on a ventilator even for short term. Smoking status: Never smoker Alcohol intake: never Substance use: never Additional living arrangements comments: The patient lives in her own home. Her adult son lives with her. She has 2 daughters and 1 son.
== END 2021-07-12 11:07 | disposition home or self-care (01) ==
PROVIDERS: Emergency Provider Nurse Practitioner Family; PCP Physician Assistant
DX: L03.114 Cellulitis of left upper limb (principal); J45.909 Unspecified asthma, uncomplicated; E11.9 Type 2 diabetes mellitus without complications; I10 Essential (primary) hypertension; K21.9 Gastro-esophageal reflux disease without esophagitis; E78.5 Hyperlipidemia, unspecified; G40.909 Epilepsy, unspecified, not intractable, without status epilepticus
CPT/HCPCS: 87081; 87880; 99213; G0463

== ENCOUNTER 2021-07-14 08:29 | Outpatient (CLI) | payer MEDICARE, SELFPAY ==
--- NOTE | ~2021-07-14 | XR_ITS ---
XR foot LT min 3V DATE: 07/14/2021 08:58 INDICATION: Left foot pain. No injury. TECHNIQUE: 4 views COMPARISON: None FINDINGS: Osteopenia. There is ossification of the distal Achilles tendon and prominent plantar calcaneal enthesopathy. No fracture or dislocation, periosteal reaction or bone destruction is detected. IMPRESSION: Osteopenia Prominent plantar and posterior calcaneal enthesopathy Prominent distal Achilles tendon calcification Reviewed, dictated and finalized at location A.
== END 2021-07-14 08:30 | disposition home or self-care (01) ==
PROVIDERS: PCP Physician Assistant; Visit Provider Physician Assistant
DX: M85.872 Other specified disorders of bone density and structure, left ankle and foot (principal); M77.32 Calcaneal spur, left foot
CPT/HCPCS: 73630

== ENCOUNTER 2021-09-07 09:09 | Outpatient (CLI) | payer MEDICARE, SELFPAY ==
--- NOTE | ~2021-09-07 | XR_ITS ---
EXAM: XR cervical spine 4-5V DATE: 09/07/2021 09:48 HISTORY: NUMBNESS;TINGLING in bilateral feet . COMPARISON: 03/19/2013. FINDINGS: Craniocervical association and atlantoaxial joint are aligned, with moderate degenerative change. No prevertebral soft tissue swelling. 2 mm anterolisthesis of C4 on 5. 3 mm anterolisthesis o f C6 on 7. 1 mm retrolisthesis of C5 on C6. Mild disc space narrowing at C4-5. Severe disc space narr owing at C5-6. Vertebral body heights are maintained. Multilevel facet sclerosis. IMPRESSION: Multilevel grade 1 listheses. Severe disc space narrowing at C5-6. Multilevel facet arthr opathy. Reviewed, dictated and finalized at location K. IMPRESSION: Multilevel grade 1 listheses. Severe disc space narrowing at C5-6. Multilevel facet arthropathy.
--- NOTE | ~2021-09-07 | XR_ITS ---
EXAM: XR lumbar spine 2-3V DATE: 09/07/2021 09:48 HISTORY: NUMBNESS;TINGLING in bilateral feet . COMPARISON: None available. FINDINGS: Surgical clips over the right abdomen, possible cholecystectomy. 5 nonrib-bearing lumbar-t ype vertebral bodies. Pedicles intact. 2 mm anterolisthesis of L3 on 4 and L4 on 5. 5 mm anterolisthe sis of L5 on S1. Vertebral body heights preserved. Multilevel mild and moderate disc space narrowing. Multilevel facet sclerosis and hypertrophy. No fracture or dislocation. IMPRESSION: Grade 2 anterolisthesis of L5 on S1. Grade 1 anterolistheses at L3-4 and L4-5. Multilevel mild-moderate degenerative disc disease. Multilevel facet arthropathy. Reviewed, dictated and finalized at location K. IMPRESSION: Grade 2 anterolisthesis of L5 on S1. Grade 1 anterolistheses at L3- 4 and L4-5. Multilevel mild-moderate degenerative disc disease. Multilevel face t arthropathy.
== END 2021-09-07 09:10 | disposition home or self-care (01) ==
PROVIDERS: PCP Emergency Medicine; Visit Provider Emergency Medicine
DX: R20.2 Paresthesia of skin (principal); M50.30 Other cervical disc degeneration, unspecified cervical region; M51.36 Other intervertebral disc degeneration, lumbar region
CPT/HCPCS: 72050; 72100

== ENCOUNTER 2022-01-12 09:14 | Outpatient (CLI) | payer MEDICARE, SELFPAY ==
--- NOTE | ~2022-01-12 | MM_ITS ---
EXAMINATION: MM screening kelly BI w eddie HISTORY: Screening mammogram TECHNIQUE: Craniocaudal and mediolateral oblique 3-D tomosynthesis images were obtained and synthetic 2-D images were generated. CAD analysis was submitted and interpreted. COMPARISON: 10/08/2019, 06/28/2018, 06/20/2017, 07/16/2013 BREAST PARENCHYMAL COMPOSITION: There are scattered areas of fibroglandular density. FINDINGS: Scattered benign-appearing calcifications are present. No suspicious mass, calcification, o r architectural distortion are identified in either breast to suggest malignancy. There has been no s uspicious interval change. IMPRESSION: 1. No mammographic evidence of malignancy. 2. Recommend routine screening mammography while the patient remains in good health. BI-RADS Category 1: Negative Reviewed, dictated and finalized at location A. [employer] IMPRESSION: 1. No mammographic evidence of malignancy. 2. Recommend routine screening mammography while the patient remains in good he alth. BI-RADS Category 1: Negative
--- NOTE | ~2022-01-12 | DEXA_ITS ---
Bone Density Report Name: JOANA VILLARREAL Age: 86 Sex: Female Ethnicity: White Date of : 1935 Indication: postmenopausal; screening for osteoporosis; height loss; hysterectomy; Referring Provider: SARA MURO Study: Bone densitometry was performed. Exam Date: January 12, 2022 Accession number: [id number] Bone Density: Region BMD T-score Z-score Classification AP Spine(L1-L4) 1.005 -0.4 2.5 Normal Femoral Neck (Left) 0.626 -2.0 0.5 Osteopenia Total Hip (Left) 0.815 -1.0 1.3 Normal Femoral Neck (Right) 0.646 -1.8 0.7 Osteopenia Total Hip (Right) 0.739 -1.7 0.7 Osteopenia Total Hip Mean 0.777 -1.4 1.0 Osteopenia World Health Organization criteria for BMD impression classify patients as: Normal (T-score at or above -1.0), Osteopenia (T-score between -1.0 and -2.5), or Osteoporosis (T-score at or below -2.5). 10-year Fracture Risk(1): Major Osteoporotic Fracture 16% Hip Fracture 4.8% Reported Risk Factors: [place] (), Neck BMD=0.626, BMI=25.6 (1) FRAX(R) Version 3.08. Fracture probability calculated for an untreated patient. Fracture probability may be lower if the patient has received treatment. Clinical Information Provided by Patient: Has used the following medications: Vitamin D, Calcium Has the following medical conditions: Hysterectomy Patient maximum height was 65 Menopause Age: 42 Does not regularly consume dairy products Drinks caffeinated beverages Onset of menses at age 14 Number of children 3 Impression: The patient has low bone mass, based on the Left Femoral Neck T-score. The patient has an estimated ten-year risk of hip fracture of 4.8% and an estimated ten-year risk of major fracture of 16%, based on the WHO FRAX algorithm. Discussion: BONE DENSITY IS LOW AT ONE OR MORE SKELETAL SITES. THE PATIENT'S BMD AND CLINICAL RISK FACTORS CONTRIBUTE TO THIS PATIENT'S INCREASED RISK OF FRACTURE. This patient's lowest T-score is low at one or more skeletal sites. It meets the World Health Organization's (WHO) criteria for ?low bone mass? (T-score between -1.0 and -2.5). The patient's 10-year risk of hip fracture as calculated by FRAX exceeds the threshold where pharmacological therapy is recommended by the National Osteoporosis Foundation (NOF). However, all treatment decisions require clinical judgment and consideration of individual patient factors, including patient preferences, comorbidities, previous drug use, risk factors not captured in the FRAX model (e.g., frailty, falls, vitamin D deficiency, increased bone turnover, interval significant decline in bone density) and possible under or overestimation of fracture risk by FRAX. The patient should follow a healthful lifestyle (good nutrition with adequate calcium and vitamin D, and appropriate weight-bear
== END 2022-01-12 09:15 | disposition home or self-care (01) ==
LOC: ANHIMG 09:15
PROVIDERS: PCP Emergency Medicine; Visit Provider Emergency Medicine
DX: Z12.31 Encounter for screening mammogram for malignant neoplasm of breast (principal); M85.852 Other specified disorders of bone density and structure, left thigh; M85.851 Other specified disorders of bone density and structure, right thigh
CPT/HCPCS: 77063; 77067; 77080

== ENCOUNTER 2022-02-15 10:52 | Outpatient (CLI) | payer MEDICARE, SELFPAY ==
--- NOTE | ~2022-02-15 | XR_ITS ---
EXAMINATION: XR chest 2V DATE: 02/15/2022 11:15 INDICATION: Dyspnea on exertion. TECHNIQUE: Frontal and lateral views of the chest were obtained. COMPARISON: Chest 2 views 12/09/2019, chest CT 09/27/2019 FINDINGS: There is mild scarring at the lung apices. No pleural effusion or pneumothorax. The heart s ize is normal. There is mild chronic anterior wedging of multiple thoracic vertebral bodies IMPRESSION: 1. Stable mild scarring at the lung apices. Reviewed, dictated and finalized at location A. ICAL DRESSING MAKER
== END 2022-02-15 10:53 | disposition home or self-care (01) ==
LOC: ANHIMG 11:00
PROVIDERS: PCP Emergency Medicine; Visit Provider Internal Medicine Pulmonary Disease
DX: R06.09 Other forms of dyspnea (principal); R05.9 Cough, unspecified; T78.40XA Allergy, unspecified, initial encounter; D89.9 Disorder involving the immune mechanism, unspecified
CPT/HCPCS: 71046

== ENCOUNTER 2022-03-18 13:42 | Outpatient (CLI) | payer MEDICARE, SELFPAY ==
--- NOTE | 2022-03-18 17:13 | WPDPFTINT ---
PFT Procedure Performed PFT Procedure Performed Plethysmography (Lung Vol) Diffusing Cap (DLCO) Flow Vol Loop Spirometry w/o Bronchodil PFT Interpretation This is a pulmonary function test with spirometry, plethysmography and diffusing capacity. The test was performed and results interpreted in accordance with the 2019 and 2005 ATS/ERS Task Force guidelines respectively using the Global Lung Function Initiative-2012 reference equations. Patient demonstrated good effort and cooperation. Reproducibility criteria were met. The quality of the spirometry maneuver was Grade B. Findings: Spirometry: There is decreased maximal expiratory airflow at all lung volumes with concave expiratory flow tracing. The contour the inspiratory flow tracing is normal. The FVC is 1.92 L, 78% predicted. The FEV1 is 0.98 L, 53% predicted. The FEV1: FVC ratio is 51%. Plethysmography: The total lung capacity is 7.30 L, 144% predicted. The functional residual capacity is 5.36 L, 182% predicted. The residual volume is 4.78 L, 193% predicted. Diffusion capacity: The diffusing capacity unadjusted for hemoglobin and carboxyhemoglobin is 14.1, 74% predicted. The diffusing capacity adjusted for alveolar volume is 3.75, 92% predicted. Impression: There is a moderately severe obstructive abnormality. The increase in residual volume is consistent with air trapping from an obstructive abnormality. Hyperinflation is present as demonstrated by the increase in functional residual capacity and total lung capacity and is consistent with an obstructive abnormality. The diffusing capacity is normal. There are no prior studies for comparison
== END 2022-03-18 13:43 | disposition home or self-care (01) ==
LOC: ANHPFT 13:43
PROVIDERS: PCP Emergency Medicine; Visit Provider Internal Medicine Pulmonary Disease
DX: R06.09 Other forms of dyspnea (principal); R94.2 Abnormal results of pulmonary function studies
CPT/HCPCS: 94375; 94726; 94729

== ENCOUNTER 2022-09-26 18:01 | Emergency (ER) | payer MEDICARE, SELFPAY ==
[2022-09-26 18:07] VITALS: BP 141/51; PULSE 107; RESP 18; TEMP 36.8; O2SAT 100
[2022-09-26 20:25] VITALS: BP 154/70; PULSE 105; RESP 20; TEMP 37.1; O2SAT 99
--- NOTE | 2022-09-26 23:00 | ED.GENADULT ---
HPI - General Adult General Chief complaint: Abdominal Pain <DEBRA Hawkins Last Filed: 09/27/22 03:27> Stated complaint: abd pain <DEBRA Hawkins Last Filed: 09/27/22 03:27> Time Seen by Provider: 09/26/22 20:23 <DEBRA Hawkins Last Filed: 09/27/22 03:27> Source: patient <DEBRA Hawkins Last Filed: 09/27/22 03:27> Mode of arrival: ambulatory <DEBRA Hawkins Last Filed: 09/27/22 03:27> Limitations: no limitations <DEBRA Hawkins Last Filed: 09/27/22 03:27> History of Present Illness HPI narrative: This is a 87-year-old female who presents to the ED with chief complaint of constipation and abdominal pain ongoing for the past couple of days. Patient states that she took a Dulcolax this morning and had 1 small bowel movement later. Reports she took another Dulcolax and then had 3-4 good bowel movements including while she was here waiting to be seen. Patient states that she is now completely pain-free. She is asymptomatic at this time. She would like to go home but wanted to make sure that she was okay to do so. Denies chest pain, shortness of breath, cough, urinary symptoms, fevers, chills. <DEBRA Hawkins Last Filed: 09/27/22 03:27> Related Data Home medications: Home Medications Medication Instructions Recorded Confirmed benazepril 40 mg tablet 40 mg PO DAILY 09/27/19 07/12/21 hydrochlorothiazide 25 mg tablet 25 mg PO DAILY 09/27/19 07/12/21 inhalational spacing device 09/27/19 09/28/19 ([facility] spacer) loratadine 10 mg tablet 10 mg PO DAILY 09/27/19 07/12/21 simvastatin 80 mg tablet 80 mg PO QAM 09/27/19 07/12/21 phenytoin sodium extended 100 mg 100 mg PO HS 10/04/21 capsule <DEBRA Hawkins Last Filed: 09/27/22 03:27> Allergies/adverse reactions: Allergies Allergy/AdvReac Type Severity Reaction Status Date / Time No Known Allergies Allergy Verified 10/04/21 14:38 <Pradip Up PA-C - Last Filed: 09/27/22 03:27> Review of Systems Review of Systems: All systems as dictated in HPI <Pradip Up PA-C - Last Filed: 09/27/22 03:27> [facility] Past Medical History Medical History: Medical History Asthma Diabetes type 2, controlled Essential hypertension GERD (gastroesophageal reflux disease) Hyperlipidemia Kidney stones 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 She has not had a seizure in 15 years. 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 Status post cataract extraction of both eyes with insertion of intraocular lens 2004 <Pradip Up PA-C - Last Filed: 09/27/22 03:27> Family History Family History: Family History Mother , at 93 years old Hypertension Dementia Father , at 65 years old Coronary artery disease Daughter COPD (chronic obstructive pulmonary disease) <Pradip Up PA-C - Last Filed: 09/27/22 03:27> Social History Social History: Social History Social History: Primary care provider: Jimenez Tavarez Code status: DNR/DNI per patient request Surrogate decision maker: Evin Alonzo (grand daughter) She does not have advanced directives in place. She does not feel she would want have cardiopulmonary resuscitation if her heart were to stop. She would not want to be on a ventilator even for short term. Smoking status: Never smoker Alcohol intake: never Substance use:
[2022-09-26 23:13] VITALS: BP 148/68; PULSE 98; RESP 15; O2SAT 100
== END 2022-09-26 23:14 | disposition home or self-care (01) ==
PROVIDERS: Emergency Provider Physician Assistant; PCP Emergency Medicine
DX: K59.00 Constipation, unspecified (principal); J45.909 Unspecified asthma, uncomplicated; E11.9 Type 2 diabetes mellitus without complications; I10 Essential (primary) hypertension; K21.9 Gastro-esophageal reflux disease without esophagitis; E78.5 Hyperlipidemia, unspecified; N39.490 Overflow incontinence; Z66 Do not resuscitate; Z87.442 Personal history of urinary calculi; Z90.49 Acquired absence of other specified parts of digestive tract; Z90.710 Acquired absence of both cervix and uterus; Z98.42 Cataract extraction status, left eye; Z98.41 Cataract extraction status, right eye; Z96.1 Presence of intraocular lens
CPT/HCPCS: 99281

== ENCOUNTER 2023-01-23 13:37 | Outpatient (CLI) | payer MEDICARE, SELFPAY ==
--- NOTE | ~2023-01-23 | CT_ITS ---
CT Scan of the Chest without Contrast: Clinical Indication: Asthma, COPD Technique: Contiguous sections were acquired throughout the chest without intravenous contrast. Dose reduction technique was used on this scan by utilizing automated exposure control and iterative recon struction technique. The dose-length product (DLP) was 150.23 mGy-cm. COMPARISON: 09/27/2019 Findings: There is no evidence of any significant mediastinal, hilar or axillary lymphadenopathy. The mediastin al soft tissues appear normal. There is no evidence of pleural or pericardial effusion. There is mild biapical and bibasilar pleural scarring. There is a 4 mm groundglass nodule at the ling monique, unchanged. Images through the upper abdomen reveal nonobstructing left renal stones. Impression: No acute abnormality. 4 mm groundglass nodule at the lingula is unchanged since 2019. Reviewed, dictated and finalized at [facility]. [employer] [employer] Impression: No acute abnormality. 4 mm groundglass nodule at the lingula is unchanged since 2019.
== END 2023-01-23 13:38 | disposition home or self-care (01) ==
PROVIDERS: PCP Emergency Medicine; Visit Provider Physician Assistant
DX: J44.9 Chronic obstructive pulmonary disease, unspecified (principal); J45.909 Unspecified asthma, uncomplicated
CPT/HCPCS: 71250

== ENCOUNTER 2023-06-14 23:16 | Emergency (ER) | payer MEDICARE, SELFPAY ==
--- NOTE | ~2023-06-14 | XR_ITS ---
Clinical Indication: Chest pain PA and lateral views of the chest: Comparison: 02/15/2022 Findings: The lungs are clear, without evidence of focal consolidation or pleural effusion. Possible COPD. Cardiomediastinal silhouette is within normal limits. Degenerative change of the thoracic spine noted. Impression: No acute abnormalities evident. COPD suspected. Reviewed, dictated and finalized at location . Impression: No acute abnormalities evident. COPD suspected.
[2023-06-14 23:18] VITALS: BP 136/67; PULSE 83; RESP 16; TEMP 36.8; O2SAT 100
--- NOTE | 2023-06-14 23:23 | ECG_ITS ---
SEE SCANNED COPY FOR CONFIRMED REPORT MTDD
[2023-06-14 23:27] VITALS: PULSE 80; O2SAT 100
[2023-06-14 23:28] VITALS: O2SAT 100
[2023-06-14 23:32] LABS: Basophils Percent Auto 0.6 % (0.2-1.2); Eosinophils Absolute Auto 0.1 K/mm3 (0-0.3); Eosinophils Percent Auto 2.2 % (0-4.4); Hematocrit 39.3 % (37.0-47.0); Hemoglobin 12.3 g/dL (12.0-15.0); Immature Granulocyte Absolute 0.02 K/mm3 (0.00-0.031); Immature Granulocyte Percent A 0.3 % (0-0.5); Lymphocytes Absolute Auto 2.07 K/mm3 (0.9-3.2); Lymphocytes Percent Auto 32.2 % (18.3-44.2); Mean Corpuscular HGB Conc 31.3 g/dl (32-36); Mean Corpuscular Hemoglobin 31.1 pg (26-34); Mean Corpuscular Volume 99.5 fl (80-100); Mean Platelet Volume 9.8 fl (7.4-10.4); Monocytes Absolute Auto 0.6 K/mm3 (0.1-0.6); Monocytes Percent Auto 9.3 % (2.6-8.5); Neutrophils Absolute Auto 3.6 K/mm3 (1.3-6.7); Neutrophils Percent Auto 55.4 % (45.5-73.1); Platelet Count Result 201 k/mm3 (150-375); Red Blood Count 3.95 M/mm3 (4.2-5.4); Red Cell Distribution Width 13.2 % (11.5-14.5); White Blood Count 6.4 K/mm3 (4.5-10.0)
[2023-06-14] MEDS: ASPIRIN 81 MG CHEWABLE TABLET 324 MG PO (23:36)
[2023-06-14 23:42] LABS: INR 0.9; Prothrombin Time 12.1 Seconds (11.1-14.7)
[2023-06-14 23:43] LABS: Partial Thromboplastin Time 25.8 Seconds (22.3-36.8)
[2023-06-14 23:46] LABS: Alanine Aminotransferase 26 U/L (6-35); Albumin Level 4.5 g/dL (3.5-5.1); Alkaline Phosphatase 85 U/L (38-126); Anion Gap 7 mmol/L (4-12); Aspartate Amino Transferase 38 U/L (14-36); Bilirubin,Total 0.5 mg/dL (0.2-1.3); Blood Urea Nitrogen 23 mg/dL (7-17); Calcium 9.8 mg/dL (8.4-10.2); Carbon Dioxide 25 mmol/L (22-30); Chloride 110 mmol/L (98-107); Estimated CRCL calculation 30 ml/min; Estimated Glomerular Filt Rate 53; Glucose 109 mg/dL (65-110); Lipase 36 U/L (23-300); Potassium 3.9 mmol/L (3.4-5.0); Sodium 142 mmol/L (137-145)
[2023-06-14 23:59] LABS: Troponin I < 0.012 ng/mL (0.000-0.034)
[2023-06-15 01:02] VITALS: BP 138/60; PULSE 73; RESP 16; O2SAT 100
--- NOTE | 2023-06-15 02:06 | ECG_ITS ---
SEE SCANNED COPY FOR CONFIRMED REPORT MTDD
[2023-06-15 02:11] VITALS: BP 119/68; PULSE 71; RESP 12; O2SAT 100
--- NOTE | 2023-06-15 02:32 | ED.GENADULT ---
HPI - General Adult General Chief complaint: Chest Pain Stated complaint: chest pain Time Seen by Provider: 06/14/23 23:43 History of Present Illness HPI narrative: This is a 88-year-old female presenting for a brief episode of chest pain. At 7:00 p.m. mother patient was doing some chores she developed a brief achy pain on the left side of her chest, nonradiating 1/10 in intensity that lasted for several seconds before resolving on its own. She has never experienced pain like this before there are no exacerbating alleviating symptoms. It was not associated with exertion vomiting diaphoresis fevers chills cough. The patient is currently asymptomatic. The patient was worried she was having a heart attack. Related Data Home Medications Medication Instructions Recorded Confirmed benazepril 40 mg tablet 40 mg PO DAILY 09/27/19 01/06/23 hydrochlorothiazide 25 mg tablet 25 mg PO DAILY 09/27/19 01/06/23 inhalational spacing device 09/27/19 01/06/23 [facility] loratadine 10 mg tablet 10 mg PO DAILY 09/27/19 01/06/23 simvastatin 80 mg tablet 80 mg PO QAM 09/27/19 01/06/23 phenytoin sodium extended 100 mg 100 mg PO HS 10/04/21 01/06/23 capsule fluticasone propionate 110 1 puff inhalation Q12H 01/06/23 01/06/23 mcg/actuation HFA aerosol inhaler (Flovent HFA) fluticasone propionate 50 1 spray intranasal BID 01/06/23 01/06/23 mcg/actuation nasal spray,suspension Allergies Allergy/AdvReac Type Severity Reaction Status Date / Time No Known Allergies Allergy Verified 01/06/23 13:25 [facility] Past Medical History Medical History Asthma Diabetes type 2, controlled Essential hypertension GERD (gastroesophageal reflux disease) Hyperlipidemia Kidney stones 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 She has not had a seizure in 15 years. 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 She does not feel she would want have cardiopulmonary resuscitation if her heart were to stop. She would not want to be on a ventilator even for short term. Smoking status: Never smoker Alcohol intake: never Substance use: never Additional living arrangements comments: The patient lives in her own home. Her adult son lives with her. She has 2 daughters and 1 son. She is independent in her activities of daily living and does her own lawn and house care. Additional occupation/education comments: Homemaker Gender identity (if verbalized by the patient): Female Spiritual care concerns: No Exam Narrative: APPEARANCE: No apparent distress. Resting comfortably Head: atraumatic. EYES: EOMI, NOSE: Atraumatic NECK: Trachea midline RESPIRATORY: No increased rate of breathing CTAB CARDIOVASCULAR: RRR, no peripheral edema ABDOMINAL: Non-distended. Soft nontender MUSCULOSKELETAl: No obvious deformities NEURO: Alert. Moving 4/4 extremities SKIN:: Warm, dry. Normal color PSYCHIATRIC: Normal affect
[2023-06-15 02:37] LABS: Troponin I < 0.012 ng/mL (0.000-0.034)
[2023-06-15 02:54] VITALS: BP 136/89; PULSE 69; RESP 19; O2SAT 100
== END 2023-06-15 03:02 | disposition home or self-care (01) ==
PROVIDERS: Emergency Provider Emergency Medicine; PCP Emergency Medicine
DX: R07.89 Other chest pain (principal); I10 Essential (primary) hypertension; E11.9 Type 2 diabetes mellitus without complications; E78.5 Hyperlipidemia, unspecified; G40.909 Epilepsy, unspecified, not intractable, without status epilepticus; J45.909 Unspecified asthma, uncomplicated; N39.490 Overflow incontinence; Z66 Do not resuscitate; Z86.010 Personal history of colon polyps; Z87.442 Personal history of urinary calculi; Z90.49 Acquired absence of other specified parts of digestive tract; Z90.710 Acquired absence of both cervix and uterus; Z98.42 Cataract extraction status, left eye; Z98.41 Cataract extraction status, right eye; Z96.1 Presence of intraocular lens; I45.10 Unspecified right bundle-branch block
CPT/HCPCS: 36415; 71046; 80053; 83690; 84484; 85025; 85610; 85730; 93005; 99284; A9270

== ENCOUNTER 2023-07-10 14:02 | Outpatient (CLI) | payer MEDICARE, SELFPAY | END 2023-07-10 14:03 | disposition home or self-care (01) | PROVIDERS: PCP Emergency Medicine; Visit Provider Otolaryngology | DX: E03.9 Hypothyroidism, unspecified (principal); I95.1 Orthostatic hypotension | CPT/HCPCS: 36415; 84443 ==

== ENCOUNTER 2023-10-23 13:49 | Outpatient (CLI) | payer MEDICARE, SELFPAY ==
--- NOTE | ~2023-10-23 | MM_ITS ---
EXAMINATION: MM screening kelly BI w eddie HISTORY: Screening mammogram TECHNIQUE: Craniocaudal and mediolateral oblique 3-D tomosynthesis images were obtained and synthetic 2-D images were generated. CAD analysis was submitted and interpreted. COMPARISON: 01/12/2022, 10/08/2019 06/28/2018 BREAST PARENCHYMAL COMPOSITION:Dense: The breasts are heterogeneously dense, which may obscure small masses. FINDINGS: No suspicious mass, calcification, or architectural distortion are identified in either ary ast to suggest malignancy. There has been no suspicious interval change. IMPRESSION: No mammographic evidence of malignancy. Recommend routine screening mammography in one year. BI-RADS Category 1: Negative Reviewed, dictated and finalized at location .
== END 2023-10-23 13:50 | disposition home or self-care (01) ==
LOC: ANHIMG 13:51
PROVIDERS: PCP Emergency Medicine; Visit Provider Emergency Medicine
DX: Z12.31 Encounter for screening mammogram for malignant neoplasm of breast (principal)
CPT/HCPCS: 77063; 77067

== ENCOUNTER 2023-11-18 15:21 | Emergency (ER) | payer MEDICARE, SELFPAY ==
[2023-11-18 15:34] VITALS: BP 110/53; PULSE 92; RESP 20; TEMP 37.2; O2SAT 97
--- NOTE | 2023-11-18 15:42 | ED.SKABFB ---
HPI - Skin/Abscess/Foreign Bdy General Chief complaint: Skin/Abscess/Foreign Body Stated complaint: Dog Scratch Time Seen by Provider: 11/18/23 15:42 Source: patient Mode of arrival: ambulatory Limitations: no limitations History of Present Illness HPI narrative: 88 yo F presents with dog scratch to R upper arm. Was scratched by her daughters dog this AM. Bleeding controlled on arrival. Tetanus up to date. Pt thinks may need antibiotic. All systems reviewed and negative except as noted above. Related Data Home Medications Medication Instructions Recorded Confirmed hydrochlorothiazide 25 mg tablet 25 mg PO DAILY 09/27/19 11/18/23 inhalational spacing device 09/27/19 11/18/23 [facility] spacer) losartan 50 mg tablet 50 mg PO DAILY 07/10/23 11/18/23 meclizine 25 mg tablet 25 mg PO TID 07/10/23 11/18/23 atorvastatin 40 mg tablet (Lipitor) 40 mg PO DAILY 07/14/23 11/18/23 Allergies Allergy/AdvReac Type Severity Reaction Status Date / Time No Known Allergies Allergy Verified 11/18/23 15:34 Review of Systems Review of Systems: CONSTITUTIONAL: Denies fever, chills, or sweats. EYES: Denies visual changes, redness, or discharge. ENT: Denies rhinorrhea, congestion, sore throat, or otalgia. CARDIOVASCULAR: Denies chest pain, palpitations, or edema. RESPIRATORY: Denies cough or dyspnea. GASTROINTESTINAL: Denies abdominal pain, nausea, vomiting, or diarrhea. GENITOURINARY: Denies dysuria or hematuria. SKIN: Denies rash or itching. Reports Dog scratch to right upper arm. MUSCULOSKELETAL: Denies back pain, joint pain, or myalgia. NEUROLOGIC: Denies headache, numbness, or weakness. PSYCHIATRIC: Denies anxiety or depression. All other systems reviewed are negative, except as documented in HPI. PENDING SALE TO [facility] Past Medical History Medical History Asthma Diabetes type 2, controlled Essential hypertension GERD (gastroesophageal reflux disease) Hyperlipidemia Kidney stones 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 She has not had a seizure in 15 years. 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 She does not feel she would want have cardiopulmonary resuscitation if her heart were to stop. She would not want to be on a ventilator even for short term. Smoking status: Never smoker Alcohol intake: never Substance use: never Additional living arrangements comments: The patient lives in her own home. Her adult son lives with her. She has 2 daughters and 1 son. She is independent in her activities of daily living and does her own lawn and house care. Additional occupation/education comments: Homemaker Gender identity (if verbalized by the patient): Female Spiritual care concerns: No Comments At time of signature, agree with nursing past medical, surgical, social and family history. There is no relevant family history pertinent to the presenting complaint. Exam Narrative: GENERAL: This is a well-nourished, we
== END 2023-11-18 16:00 | disposition home or self-care (01) ==
PROVIDERS: Emergency Provider Nurse Practitioner Family; PCP Emergency Medicine
DX: S40.811A Abrasion of right upper arm, initial encounter (principal); E11.9 Type 2 diabetes mellitus without complications; I10 Essential (primary) hypertension; E78.5 Hyperlipidemia, unspecified; Z79.899 Other long term (current) drug therapy; W54.1XXA Struck by dog, initial encounter
CPT/HCPCS: 99213; G0463

== ENCOUNTER 2023-12-07 10:48 | Outpatient (CLI) | payer MEDICARE, SELFPAY ==
[2023-12-07 11:41] LABS: Basophils Absolute Auto 0.1 K/mm3 (0.0-0.1); Basophils Percent Auto 0.9 % (0.2-1.2); Eosinophils Absolute Auto 0.2 K/mm3 (0-0.3); Eosinophils Percent Auto 3.3 % (0-4.4); Hematocrit 40.1 % (37.0-47.0); Hemoglobin 13.1 g/dL (12.0-15.0); Immature Granulocyte Absolute 0.02 K/mm3 (0.00-0.031); Immature Granulocyte Percent A 0.3 % (0-0.5); Lymphocytes Absolute Auto 1.25 K/mm3 (0.9-3.2); Lymphocytes Percent Auto 21.5 % (18.3-44.2); Mean Corpuscular HGB Conc 32.7 g/dl (32-36); Mean Corpuscular Hemoglobin 31.5 pg (26-34); Mean Corpuscular Volume 96.4 fl (80-100); Mean Platelet Volume 9.9 fl (7.4-10.4); Monocytes Absolute Auto 0.4 K/mm3 (0.1-0.6); Monocytes Percent Auto 7.4 % (2.6-8.5); Neutrophils Absolute Auto 3.9 K/mm3 (1.3-6.7); Neutrophils Percent Auto 66.6 % (45.5-73.1); Platelet Count Result 225 k/mm3 (150-375); Red Blood Count 4.16 M/mm3 (4.2-5.4); Red Cell Distribution Width 12.7 % (11.5-14.5); White Blood Count 5.8 K/mm3 (4.5-10.0)
[2023-12-07 11:52] LABS: INR 0.9; Prothrombin Time 12.6 Seconds (11.1-14.7)
[2023-12-07 11:54] LABS: Albumin Level 4.5 g/dL (3.5-5.1); Anion Gap 10 mmol/L (4-12); Blood Urea Nitrogen 33 mg/dL (7-17); Calcium 9.7 mg/dL (8.4-10.2); Carbon Dioxide 27 mmol/L (22-30); Chloride 103 mmol/L (98-107); Estimated Glomerular Filt Rate 36; Glucose 109 mg/dL (65-110); Phosphorus 3.3 mg/dL (2.5-4.5); Potassium 3.9 mmol/L (3.4-5.0); Sodium 140 mmol/L (137-145)
== END 2023-12-07 10:49 | disposition home or self-care (01) ==
PROVIDERS: PCP Emergency Medicine; Visit Provider Nurse Practitioner Family
DX: N18.32 Chronic kidney disease, stage 3b (principal)
CPT/HCPCS: 36415; 80069; 85025; 85610

== ENCOUNTER 2024-04-03 13:37 | Emergency (ER) | payer MEDICARE, SELFPAY ==
--- NOTE | ~2024-04-03 | XR_ITS ---
EXAMINATION: XR chest 2V DATE: 04/03/2024 14:15 INDICATION: Productive cough. TECHNIQUE: Frontal and lateral views of the chest were obtained. COMPARISON: Chest 2 views 12/11/2023, chest CT 01/23/2023 FINDINGS: There is mild scarring at the lung apices. There are airspace opacities in the lower lobes. No pleural effusion or pneumothorax. The heart size is normal. IMPRESSION: 1. Airspace opacities in the lower lobes, consistent with atelectasis versus pneumonia. Reviewed, dictated and finalized at location [facility]. [employer] IMPRESSION: 1. Airspace opacities in the lower lobes, consistent with atelectasis versus pn eumonia.
--- NOTE | 2024-04-03 13:41 | ED_ITS ---
HPI - Weakness General Chief complaint: Upper Respiratory Infection Stated complaint: weak,no energy Time Seen by Provider: 04/03/24 13:41 Source: patient Mode of arrival: ambulatory Limitations: no limitations History of Present Illness HPI Narrative: Norma is an 88-year-old female patient presenting to the clinic today with complaints of fatigue, weakness, and productive cough x3 days. She denies any known fevers, chills, body aches. Is coughing up some green phlegm. Related Data Home Medications ?Medication ?Instructions ?Recorded ?Confirmed ?Last Taken ?Type inhalational spacing device 09/27/19 01/26/24 Unknown History ([facility] spacer) atorvastatin 40 mg tablet (Lipitor) 40 mg PO DAILY 07/14/23 01/26/24 Unknown History losartan 100 tablet 04/03/24 Unknown History mg-hydrochlorothiazide 25 mg tablet meclizine 25 mg tablet mg 04/03/24 Unknown History Allergies Allergy/AdvReac Type Severity Reaction Status Date / Time No Known Allergies Allergy Verified 04/03/24 13:42 Review of Systems Review of Systems: Pertinent positives per HPI. Patient denies any fever, chills, rash, headache, visual changes, dizziness, shortness of breath, chest pain, palpitations, nausea, vomiting, diarrhea, constipation, abdominal pain, or any urinary issues. 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 She has not had a seizure in 15 years. 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 She does not feel she would want have cardiopulmonary resuscitation if her heart were to stop. She would not want to be on a ventilator even for short term. Smoking status: Never smoker Alcohol intake: never Substance use: never Do You Feel Safe in your Home?: Yes Lack of Transportation: No Lack of Food: Never True Current Housing: I Have Housing Concerned About Future Housing: No Difficulty Paying Gas/Electric Bills: No Difficulty Paying for Meds: No Currently Unemployed: No Education: Grade School Difficulty w/ Childcare or Family Care: No Additional living arrangements comments: The patient lives in her own home. Her adult son lives with her. She has 2 daughters and 1 son. She is independent in her activities of daily living and does her own lawn and house care. Additional occupation/education comments: Homemaker Gender identity (if verbalized by the patient): Female Spiritual care concerns: No Comments At the time of my signature, I reviewed and agree with the nursing past medical, surgical, social, and family history. There is no relevant family history pertinent to the patient complaint. Exam Narrative: General: Well-developed, well nourished, in no apparent distress Head: Normocephalic, atraumatic Eyes: Pupils equally round and reactive to light bilaterally, EOM intact, sclera and conjunctive clear, no discharge, lids normal Ears: TMs intact and clear, ear canals clear, no drainage, grossly hearing normal. Nose: Nares patent, clear discharge, no inflammation, no sinus tenderness. Mouth: Oral pharynx without lesions or masses, good dentition, MMM. Neck: Supple, trachea midline, no enlargement of anterior or posterior cervical nodes, no thyroid masses or goiter palpable. Cardio: Regular rate and rhythm, s1 and s2 normal, no murmur appreciated. Resp: Clear to auscultation bilaterally, no rhonchi, rales, wheezing or rubs Course Course Emergency Course: Portions of this record may have been created with voice recognition software. Level of Care: Express Care Visit Vital Signs Vital signs: Vital Signs Temperature 36.8 C 04/03/24 13:45 Pulse Rate 110 H 04/03/24 13:45 Respiratory Rate 18 04/03/24 13:45 Blood Pressure 136/68 04/03/24 13:45 Pulse Oximetry 97 04/03/24 13:45 Oxygen Delivery Room Air 04/03/24 13:45 Temperature 36.8 C 04/03/24 13:45 Pulse Rate 110 H 04/03/24 13:45 Respiratory Rate 18 04/03/24 13:45 Blood Pressure 136/68 04/03/24 13:45 Pulse Oximetry 97 04/03/24 13:45 Oxygen Delivery Room Air 04/03/24 13:45 Vital signs reviewed MDM - Weakness MDM Narrative Medical decision making narrative: At the time of visit patient is resting comfortably on the exam table. Patient appears to be nontoxic. Labs: Influenza and COVID testing were performed and negative in the clinic today. Urinalysis positive for UTI with 1+ bilirubin, 2+ blood, 2+ protein, and 1+ leukocytes, we will send urine for culture. Diagnostics: Chest x-ray shows atelectasis versus pneumonia Plan: Will cover the patient for UTI/pneumonia. Prescription for cephalexin Supportive measures were discussed with the patient and they voiced understanding discharge instructions and agrees to treatment plan. Return precautions reviewed Differential Diagnosis Differential diagnosis: Likely anemia, hypoglycemia, sepsis, dehydration and other (UTI, pneumonia, influenza, COVID) Lab Data Labs: Lab Results 04/03/24 Range/Units 14:05 POC Urine Color Dark POC Urine Clarity Cloudy POC Urine pH 5.5 POC Ur Specif [place] 1.025 POC Urine Protein 2+ (Negative) POC Ur Glucose (UA) Negative (Negative) POC Urine Ketones Negative (Negative) POC Urine Blood 2+ (Negative) POC Urine Nitrite Negative (Negative) POC Urine Bilirubin 1+ (Negative) POC Urine Urobilinogen 1.0 POC U Leukocyte Esteras 1+ (Negative) POC Influenza A Ag Negative (Negative) POC Influenza B Ag Negative (Negative) POC SARS CoV-2 Ag Negative (Negative) Imaging Data Radiologist's impression: ITS Impressions Chest X-Ray 04/03/24 14:21 IMPRESSION: 1. Airspace opacities in the lower lobes, consistent with atelectasis versus pneumonia. Discharge Plan Discharge Clinical Impression: Pneumonia Qualifiers: Pneumonia type: due to unspecified organism Laterality: bilateral Lung location: lower lobe of lung Qualified Code(s): J18.9 - Pneumonia, unspecified organism UTI (urinary tract infection) Qualifiers: Urinary tract infection type: acute cystitis Hematuria presence: with hematuria Qualified Code(s): N30.01 - Acute cystitis with hematuria Patient Disposition: Home, Self-Care Condition: Stable Instructions: Antibiotic Form, Pneumonia (ED), Urinary Tract Infection in Older Adults (ED) Additional Instructions: Influenza and Covid testing is negative UA positive for leukocytes, protein, blood, and bili. We will send urine for culture. Take prescription medications only as prescribed-albuterol inhaler, azithromycin, and Augmentin Increase fluids and stay well hydrated Tylenol/motrin for pain/fever Flonase and OTC antihistamines as directed Vicks vapor rub to open sinuses Sinus rinses for congestion Wipe front to back. May use wet wipes. Avoid tub baths Wear cotton panties Avoid tight clothing up against the genitals Go to the ED if you develop a worsening in your condition- high fever not controlled by Tylenol or Motrin, dehydration, weakness, lethargy, shortness of breath, or chest pain. Follow up with your PCP in 3-5 days if symptoms persist. Patient Language: Georgian Prescriptions: New azithromycin 250 mg tablet See Rx Instructions .ROUTE .COMPLEX Qty: 6 0RF Rx Instructions: For 250 mg dose pack: take 500 mg today (day 1), then 250 mg for 4 days (days 2-5) albuterol sulfate 90 mcg/actuation HFA aerosol inhaler 2 puff inhalation Q4-6H PRN (Reason: shortness of breath or wheezing) 30 Days Qty: 8.5 0RF amoxicillin-pot clavulanate 875-125 mg tablet 1 tablet PO Q12H 7 Days Qty: 14 0RF No Action losartan-hydrochlorothiazide 100-25 mg tablet meclizine 25 mg tablet (DME) inhalational spacing device Spacer See Rx Instructions .ROUTE .MEDSUPPLY Qty: 1 0RF Rx Instructions: As directed atorvastatin [Lipitor] 40 mg tablet 40 mg PO DAILY (DME) [facility] Patel [facility] Spacer MISCELLANEOUS albuterol sulfate 2.5 mg/0.5 mL solution for nebulization 2.5 mg INHALATION Q6H PRN (Reason: shortness of breath or wheezing) Qty: 30 0RF Follow-up/Referrals: Jimenez Tavarez MD [Primary Care Provider] - Time of Disposition: 14:38 Quality NIHSS Nursing Documentation ED NIHSS nursing documentation: reviewed/agree
[2024-04-03 13:45] VITALS: BP 136/68; PULSE 110; RESP 18; TEMP 36.8; O2SAT 97
[2024-04-03 14:12] LABS: EDCOVIDSCREEN Negative (Negative); EDINFLUASCREEN Negative (Negative); EDINFLUBSCREEN Negative (Negative); EDUAAPPEAR Cloudy; EDUABILI 1+ (Negative); EDUABLOOD 2+ (Negative); EDUACOLOR1 Dark; EDUAGLUCOSE Negative (Negative); EDUAKETONE Negative (Negative); EDUALEUKO 1+ (Negative); EDUANITRATE Negative (Negative); EDUAPH 5.5; EDUAPROTEIN 2+ (Negative); EDUASPGRAVITY 1.025
== END 2024-04-03 14:45 | disposition home or self-care (01) ==
PROVIDERS: Emergency Provider Nurse Practitioner Family; PCP Emergency Medicine
DX: J18.9 Pneumonia, unspecified organism (principal); N30.01 Acute cystitis with hematuria; Z20.822 Contact with and (suspected) exposure to COVID-19; I10 Essential (primary) hypertension; E11.9 Type 2 diabetes mellitus without complications; K21.9 Gastro-esophageal reflux disease without esophagitis; J45.909 Unspecified asthma, uncomplicated; Z66 Do not resuscitate
CPT/HCPCS: 71046; 81003; 87086; 87426; 87804; 99213; G0463

== ENCOUNTER 2024-04-23 08:33 | Emergency (ER) | payer MEDICARE, SELFPAY ==
--- NOTE | ~2024-04-23 | XR_ITS ---
XR chest 2V Ordering provider: Adriana Condon NP History: 88 years Female with . left sided chest heaviness . Comparison: April 03, 2024 FINDINGS: MEDIASTINUM: The cardiac silhouette is not enlarged. LUNGS: No infiltrates, effusions or pneumothorax. Underlying emphysematous changes. OTHER: No free air under the diaphragm. Degenerative changes of the spine with kyphosis. IMPRESSION: No acute cardiopulmonary pathology. Reviewed, dictated and finalized at location A.
--- NOTE | 2024-04-23 08:35 | ED.CHESTPAIN ---
HPI - Chest Pain General Chief Complaint: Chest Pain Stated Complaint: left side chest pain Time Seen by Provider: 04/23/24 08:41 Source: patient Mode of arrival: ambulatory Limitations: no limitations History of Present Illness HPI narrative: 88-year-old female presents concern for left-sided chest heaviness. She reports that happened 2 times yesterday. She is not currently experiencing the symptoms. She denies any cough, shortness of breath. Denies any nausea, indigestion, heartburn. She denies any back pain. She reports she is experiencing stress at home. She does not have any cardiac history other than hypertension, she takes medication for high blood pressure. She denies any chest injury or trauma. Denies any rash, bruising, redness, warmth. She was recently treated for pneumonia, reports those symptoms had resolved after her antibiotic. MD complaint: chest heaviness Related Data Home Medications ?Medication ?Instructions ?Recorded ?Confirmed ?Last Taken ?Type inhalational spacing device 09/27/19 04/23/24 Unknown [facility] atorvastatin 40 mg tablet (Lipitor) 40 mg PO DAILY 07/14/23 04/23/24 Unknown History losartan 100 1 tablet PO DAILY 04/03/24 04/23/24 Unknown History mg-hydrochlorothiazide 25 mg tablet meclizine 25 mg tablet 25 mg PO QID PRN dizziness 04/03/24 04/23/24 Unknown History Allergies Allergy/AdvReac Type Severity Reaction Status Date / Time No Known Allergies Allergy Verified 04/23/24 08:39 Review of Systems Review of Systems: CONSTITUTIONAL: Denies malaise, chills, sweats, or fever. EYES: Denies visual changes CARDIOVASCULAR: Denies chest pain, palpitations, or edema. Reports chest heaviness yesterday on 2 occasions RESPIRATORY: Denies cough or dyspnea. GASTROINTESTINAL: Denies abdominal pain, nausea, vomiting, heartburn or indigestion GENITOURINARY: Denies dysuria or hematuria. SKIN: Denies bruising, redness, warmth, rash or itching. MUSCULOSKELETAL: Denies back pain NEUROLOGIC: Denies numbness, weakness, or headache. PSYCHIATRIC: Denies anxiety or depression. Reports stress All systems reviewed & are unremarkable except as noted in HPI and below PMFSH Past Medical History Medical History 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 She has not had a seizure in 15 years. 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 She does not feel she would want have cardiopulmonary resuscitation if her heart were to stop. She would not want to be on a ventilator even for short term. Smoking status: Never smoker Alcohol intake: never Substance use: never Do You Feel Safe in your Home?: Yes Lack of Transportation: No Lack of Food: Never True Current Housing: I Have Housing Concerned About Future Housing: No Difficulty Paying Gas/Electric Bills: No Difficulty Paying for Meds: No Currently Unemployed: No Education: Grade School Difficulty w/ Childcare or Family Care: No Additional living arrangements comments: The patient lives in her own home. Her adult son lives with her. She has 2 daughters and 1 son. She is independent in her activities of daily living and does her own lawn and house care. Additional occupation/education comments: Homemaker Gender identity (if verbalized by the patient): Female Spiritual care concerns: No Comments At time of signature, agree with nursing past medical, surgical, social and family history. There is no relevant family history pertinent to the presenting complaint Exam Narrative: GENERAL: Well-appearing, well-nourished, and in no acute distress. HEAD: Normocephalic, atraumatic. EYES: PERRLA, sclera clear, and EOMI. No nystagmus. ENT: Nares clear. Mucous membranes moist. NECK: Supple. No lymphadenopathy. No jugular venous distension, thyromegaly, or carotid bruits. Carotids were easily palpable bilaterally. CHEST: No respiratory distress. Clear to auscultation. No bony deformities, no asymmetry. Speaks in full sentences. HEART: Regular rate and rhythm. No murmur heard. Normal peripheral pulses. ABDOMEN: Soft, nontender, nondistended, normal active bowel sounds, no palpable masses. EXTREMITIES: Normal range of motion. No edema. Normal strength and sensation. SKIN: Warm, dry, no visible rash. NEURO: Alert and oriented x3. PSYCH: Normal mood and affect Course Course Emergency Course: Discussed EKG and x-ray findings with patient and her granddaughter. EKG is unchanged from previous EKG patient's chart. I discussed limited diagnostic capability at [facility] for chest pain offered transfer to emergency room for further evaluation of patient's symptoms. Discussed risks not going to the emergency room today. Patient granddaughter are competent and their decision to go home, they understand reasons to go to the emergency room if symptoms change, worsen. They also stated will follow up with the primary care doctor. Anticipatory guidance given. Patient agrees to follow-up as directed and is aware of reasons to seek care at the emergency department. Portions of this record may have been created with voice recognition software Level of Care: Express Care Visit Vital Signs Vital signs: Reviewed. MDM - Chest Pain MDM Narrative Medical decision making narrative: No evidence of ACS, pericarditis, myocarditis, pulmonary embolism, pneumothorax, pneumonia, Zoster, or esophageal perforation. Historically not abrupt in onset, tearing or ripping, pulses symmetric, no evidence of aortic dissection. No pulse deficit. Not associated with abdominal or back pain. Imaging Data My impression: Images reviewed, interpreted by radiologist, agree, see report. Radiologist's impression: XR chest 2V Ordering provider: Adriana Condon NP History: 88 years Female with . left sided chest heaviness . Comparison: April 03, 2024 FINDINGS: MEDIASTINUM: The cardiac silhouette is not enlarged. LUNGS: No infiltrates, effusions or pneumothorax. Underlying emphysematous changes. OTHER: No free air under the diaphragm. Degenerative changes of the spine with kyphosis. IMPRESSION: No acute cardiopulmonary pathology. ECG Data EKG #1: ECG completion date: 04/23/24 ECG completion time: 08:48 Prior ECG tracings: available for review Interpretation: Rate 89, AL interval 164, QRS duration 126, QT 353 EKG Interpretation: normal rate, sinus rhythm and RBBB Critical Care Time Critical Care Time Critical Care Time: No Discharge Plan Discharge Clinical Impression: Chest heaviness Patient Disposition: Home, Self-Care Condition: Stable Instructions: Chest Pain (ED) Additional Instructions: 1) Please follow-up with your primary care doctor in the next 1-2 days. 2) If you have any worsening of symptoms or any other urgent concerns please go to the ER. 3) Please continue taking your home medications as usual. 4) Please read and follow information included in discharge instructions. Patient Language: Hungarian Prescriptions: No Action losartan-hydrochlorothiazide 100-25 mg tablet meclizine 25 mg tablet azithromycin 250 mg tablet See Rx Instructions .ROUTE .COMPLEX Qty: 6 0RF Rx Instructions: For 250 mg dose pack: take 500 mg today (day 1), then 250 mg for 4 days (days 2-5) albuterol sulfate 90 mcg/actuation HFA aerosol inhaler 2 puff inhalation Q4-6H PRN (Reason: shortness of breath or wheezing) 30 Days Qty: 8.5 0RF amoxicillin-pot clavulanate 875-125 mg tablet 1 tablet PO Q12H 7 Days Qty: 14 0RF (DME) inhalational spacing device Spacer See Rx Instructions .ROUTE .MEDSUPPLY Qty: 1 0RF Rx Instructions: As directed atorvastatin [Lipitor] 40 mg tablet 40 mg PO DAILY (DME) [facility] Spacer MISCELLANEOUS albuterol sulfate 2.5 mg/0.5 mL solution for nebulization 2.5 mg INHALATION Q6H PRN (Reason: shortness of breath or wheezing) Qty: 30 0RF Follow-up/Referrals: Jimenez Tavarez MD [Primary Care Provider] - Time of Disposition: 09:05
--- NOTE | 2024-04-23 08:38 | ECG_ITS ---
Test Date: 2024-04-23 08:48:19 Measurements Intervals [place] Rate: 89 P: 83 AR: 164 QRS: 76 QRSD: 126 T: 64 QT: 353 QTc: 431 Interpretive Statements SINUS RHYTHM WITH SINUS ARRHYTHMIA RIGHT BUNDLE BRANCH BLOCK [120+ ms QRS DURATION, UPRIGHT V1, 40+ ms S IN I/aVL/V4/V5/V6] Compared to ECG 12/11/2023 22:41:21 No significant changes Electronically Signed On 04-23-2024 16:56:10 CDT by Mi Appiah M.D.
[2024-04-23 08:46] VITALS: BP 166/76; PULSE 99; RESP 15; TEMP 36.5; O2SAT 97
== END 2024-04-23 09:09 | disposition home or self-care (01) ==
PROVIDERS: Emergency Provider Nurse Practitioner; PCP Emergency Medicine
DX: R07.89 Other chest pain (principal); I10 Essential (primary) hypertension; E78.5 Hyperlipidemia, unspecified; E11.9 Type 2 diabetes mellitus without complications; K21.9 Gastro-esophageal reflux disease without esophagitis; J45.909 Unspecified asthma, uncomplicated; Z96.1 Presence of intraocular lens; Z98.42 Cataract extraction status, left eye; Z98.41 Cataract extraction status, right eye
CPT/HCPCS: 71046; 93005; 99213; G0463

== ENCOUNTER 2024-06-02 19:06 | Emergency (ER) | payer MEDICARE, SELFPAY ==
[2024-06-02 19:09] VITALS: BP 151/63; PULSE 102; RESP 18; TEMP 36.9; O2SAT 97
--- NOTE | 2024-06-02 19:37 | ED_ITS ---
HPI - Skin/Abscess/Foreign Bdy General Chief complaint: Skin/Abscess/Foreign Body Stated complaint: Left Arm Irritation Time Seen by Provider: 06/02/24 19:35 Source: patient, family, RN notes reviewed and old records reviewed Mode of arrival: ambulatory Limitations: no limitations History of Present Illness HPI narrative: 89-year-old female accompanied by daughter presents to Express Care with complaints of redness and swelling with tenderness and warmth to her left upper arm after receiving immunizations of tetanus and COVID on . Patient reports that she had warmth to her left upper arm but today noted redness and increased swelling to her left upper arm. Patient reports some mild discomfort. Patient has 10cm X13 cm of red warm tissue to left upper arm. Pulses palpable to left arm of adequate quality, denies any tingling or numbness to her left arm MD complaint: other (redness, swelling and warmth to the left upper arm) Onset (ago): day(s) (3 days with increased swelling and redness for 1 day) Tetanus up to date: yes Location: LUE (upper arm) Severity: moderate Pain Consistency: constant Exacerbating factors: palpation Treatments prior to arrival: none Related Data Home Medications ?Medication ?Instructions ?Recorded ?Confirmed ?Last Taken ?Type inhalational spacing device 09/27/19 04/23/24 Unknown History ([facility] spacer) atorvastatin 40 mg tablet (Lipitor) 40 mg PO DAILY 07/14/23 04/23/24 Unknown History losartan 100 1 tablet PO DAILY 04/03/24 04/23/24 Unknown History mg-hydrochlorothiazide 25 mg tablet meclizine 25 mg tablet 25 mg PO QID PRN dizziness 04/03/24 04/23/24 Unknown History budesonide-formoterol HFA 80 inhalation 06/02/24 Unknown History mcg-4.5 mcg/actuation aerosol inhaler (Breyna) Allergies Allergy/AdvReac Type Severity Reaction Status Date / Time No Known Allergies Allergy Verified 06/02/24 19:12 Review of Systems Review of Systems: CONSTITUTIONAL: Denies fever, chills, or sweats. CARDIOVASCULAR: Denies chest pain, palpitations, or edema. RESPIRATORY: Denies cough or dyspnea. GASTROINTESTINAL: Denies abdominal pain, nausea, vomiting SKIN: Reports redness and swelling, warmth and tenderness to left upper arm after receiving Tetanus and Covid vaccine on to left upper arm Denies purulent drainage, vesicles,or any pustule formation to left upper arm MUSCULOSKELETAL: Denies myalgia. 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 She has not had a seizure in 15 years. 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 She does not feel she would want have cardiopulmonary resuscitation if her heart were to stop. She would not want to be on a ventilator even for short term. Smoking status: Never smoker Alcohol intake: never Substance use: never Do You Feel Safe in your Home?: Yes Lack of Transportation: No Lack of Food: Never True Current Housing: I Have Housing Concerned About Future Housing: No Difficulty Paying Gas/Electric Bills: No Difficulty Paying for Meds: No Currently Unemployed: No Education: Grade School Difficulty w/ Childcare or Family Care: No Additional living arrangements comments: The patient lives in her own home. Her adult son lives with her. She has 2 daughters and 1 son. She is independent in her activities of daily living and does her own lawn and house care. Additional occupation/education comments: Homemaker Gender identity (if verbalized by the patient): Female Spiritual care concerns: No Comments At time of signature, agree with nursing past medical, surgical, social and family history. There is no relevant family history pertinent to the presenting complaint Exam Narrative: GENERAL: chronic ill-appearing, fair-nourished, frail and in no acute distress. HEAD: Normocephalic, atraumatic. EYES: PERRLA and EOMI. ENT: Nares clear, no rhinorrhea or epistaxis. Mucous membranes moist. TM;s normal with good light reflex, throat pink with no swelling NECK: Supple.no lymphadenopathy CHEST: Clear to auscultation. No respiratory distress.SAO2 97% on room air no tachypnea HEART: Regular rate and rhythm. No murmur heard. Normal peripheral pulses. ABDOMEN: Soft, nontender, nondistended, normal active bowel sounds. EXTREMITIES: Normal range of motion. No edema. SKIN: Warm, dry. Erythema, induration, tenderness, warmth with red swollen shiny appearing tissue to left upper arm measuring 10cm X 13 cm no weeping or drainage from skin tissue noted. No vesicles, or pustules, CSM intact NEURO: No focal deficits. Alert and oriented x3. Course Course Emergency Course: Patient is aware of diagnosis, understands and agrees to treatment plan. Anticipatory guidance given. Patient agrees to follow-up as directed and is aware of reasons to seek care at the emergency department. Portions of this record may have been created with voice recognition software Level of Care: Express Care Visit Vital Signs Vital signs: Vital Signs Temperature 36.9 C 06/02/24 19:09 Pulse Rate 102 H 06/02/24 19:09 Respiratory Rate 18 06/02/24 19:09 Blood Pressure 151/63 H 06/02/24 19:09 Pulse Oximetry 97 06/02/24 19:09 Oxygen Delivery Room Air 06/02/24 19:09 Temperature 36.9 C 06/02/24 19:09 Pulse Rate 102 H 06/02/24 19:09 Respiratory Rate 18 06/02/24 19:09 Blood Pressure 151/63 H 06/02/24 19:09 Pulse Oximetry 97 06/02/24 19:09 Oxygen Delivery Room Air 06/02/24 19:09 Reviewed MDM - Skin/Abscess/Foreign Bdy MDM Narrative Medical decision making narrative: Does not appear at this time to be erythema multiforme, bullous, SJS, TEN; no evidence at this time to suggest RMSF, endocarditis or Lyme disease; patient looks well, nontoxic and is tolerating oral intake; no neurologic signs or symptoms; no headache, photophobia or neck pain; afebrile; appropriate for initial outpatient treatment; discussed the importance of follow-up, patient agrees. Patient does not have history of penetrating trauma, laceration, blunt trauma, recent surgery, immunosuppression, malignancy, obesity, alcoholism, corticosteroid use. Question cellulitis, necrotizing soft tissue infection, abscess. Differential Diagnosis Differential diagnosis: Likely cellulitis, contact dermatitis and other (reaction to immunizations,) Medical Records Attestation: I reviewed the patient's medical records. Critical Care Time Critical Care Time Critical Care Time: No Discharge Plan Discharge Clinical Impression: Cellulitis of left upper limb Vaccination reaction Qualifiers: Encounter type: initial encounter Qualified Code(s): T50.Z95A - Adverse effect of other vaccines and biological substances, initial encounter Patient Disposition: Home Condition: Stable Instructions: Antibiotic Form, Cellulitis (ED) Additional Instructions: Wash left upper arm with liquid Dial soap twice daily rinse apply mupirocin ointment watch for any increasing infection--redness, swelling, drainage Tylenol ibuprofen for any fever pain follow up with PCP in 7-10 days for a wound check recheck if develop fever, chills, increasing symptom Go to the ER if your symptoms become worse of if ANY new symptoms develop Cephalexin 500 mg 1 tab twice daily for 10 days Prednisone 20 mg 1 tab twice daily with food start tomorrow If your symptoms persist, change or worsen significantly before you can contact your personal physician then please, without delay, go to the emergency department for further evaluation. Follow-up with PCP in 7-10 days or sooner if needed Follow up with PCP soon in regards to your blood pressure which is elevated above threshold for referral. Blood pressure above 120/80 may indicate pre- hypertension. 151/63 Ice compresses 20 minutes per interval to left upper arm 4 to 6 times daily Patient Language: Romanian Prescriptions: New cephalexin 500 mg capsule 500 mg PO Q8H Qty: 21 0RF mupirocin [Centany] 2 % ointment 1 applic topical BID Qty: 22 0RF Rx Instructions: apply to left upper arm 2 times daily prednisone 20 mg tablet 20 mg PO BID Qty: 10 0RF Rx Instructions: start tomorrow take with food No Action budesonide-formoterol [Breyna] 80-4.5 mcg/actuation HFA aerosol inhaler INHALATION losartan-hydrochlorothiazide 100-25 mg tablet 1 tablet PO DAILY meclizine 25 mg tablet 25 mg PO QID PRN (Reason: dizziness) atorvastatin [Lipitor] 40 mg tablet 40 mg PO DAILY (DME) [facility] Spacer MISCELLANEOUS albuterol sulfate 90 mcg/actuation HFA aerosol inhaler 2 puff inhalation Q4-6H PRN (Reason: shortness of breath or wheezing) 30 Days Qty: 8.5 3RF Dulera 100-5 mcg/actuation HFA aerosol inhaler 2 puff inhalation Q12H Qty: 13 11RF Rx Instructions: rinse and spit Follow-up/Referrals: Jimenez Tavarez MD [Primary Care Provider] - Time of Disposition: 19:46 Quality Devin Coma Scale Eyes: Open Verbal: Oriented and Alert Motor: Follows Commands [place] Coma Total Score: 15
== END 2024-06-02 19:56 | disposition home or self-care (01) ==
PROVIDERS: Emergency Provider Registered Nurse; PCP Emergency Medicine
DX: T88.0XXA Infection following immunization, initial encounter (principal); L03.114 Cellulitis of left upper limb; I10 Essential (primary) hypertension; K21.9 Gastro-esophageal reflux disease without esophagitis; J45.909 Unspecified asthma, uncomplicated; Z96.1 Presence of intraocular lens; Z98.42 Cataract extraction status, left eye; Z98.41 Cataract extraction status, right eye
CPT/HCPCS: 99213; G0463

== ENCOUNTER 2024-07-02 10:46 | Emergency (ER) | payer MEDICARE, SELFPAY ==
--- NOTE | ~2024-07-02 | XR_ITS ---
Clinical Indication: Shortness of breath PA and lateral views of the chest: Comparison: 04/23/2024 Findings: The lungs are clear, without evidence of focal consolidation or pleural effusion. Probable COPD. Cardiomediastinal silhouette is within normal limits. Bones and soft tissues are unremarkable. Impression: Clear lungs. Probable COPD. Reviewed, dictated and finalized at location . Impression: Clear lungs. Probable COPD.
[2024-07-02 10:47] VITALS: BP 179/72; PULSE 108; RESP 18; TEMP 36.4; O2SAT 95
--- OUTSIDE RECORDS SUMMARY | 2024-07-02 10:50 | XMS_ITS | CONTINUITY OF CARE DOCUMENT ---
Author Name humberto paul Address Unknown Organization [facility] Address [address] [place] [address] Phone [phone] Care Team Providers Care Chief Projectionist Name Role Phone Mikhail MCFADDEN, Rosemary Unavailable SARA MURO MD Unavailable [phone] SARA MURO MD Unavailable [phone] PROBLEMS Condition Status Date Provider Notes Fatigue active Julius Garcia Asthma active Julius Garcia Essential hypertension--echo ef 65%, 09/2021 active Rosemary Elizondo MD Vertigo active Julius Garcia CKD stage 3 completed - Rosemary ovalle MD Diabetes mellitus, type 2 completed - Rosemary Elizondo MD Hx of Seizure active Rosemary Elizondo MD Edema, ankles active Rosemary Elizondo MD Shortness of breath active Rosemary Elizondo MD Cardiology examination active Rosemary Elizondo MD ENCOUNTERS Date Type Provider Location Encounter Diag nosis - In-person encounter Office Visit Rosemary Elizondo MD [facility] - In-person encounter Office Visit Rosemary Elizondo MD [facility] Cardiology examination - In-person encounter Office Visit Rosemary Elizondo MD [facility] CKD stage 3Diabetes mellitus, type 2Hx of SeizureEdema, anklesShortness of breath VITAL SIGNS Date Observation Value Provider Body Mass Index (Ratio) 20.18 kg/m2 Lawson Elizondo MD blood pressure, diastolic 75 mm[Hg] Kenneth landerosn Srivastava blood pressure, systolic 135 mm[Hg] Karyn torres Srivastava oxygen saturation, oximetry 95 % [facility] pulse rate 87 /min [facility] blood pressure, cuff size regular Kenneth pia Srivastava weight E&M 117.6 [lb_av] [facility] height E&M 64 [in_i] [facility] Srivastava Body Mass Index (Ratio) 21.83 kg/m2 Lawson Elizondo MD blood pressure, diastolic 66 mm[Hg] Li nkLogic blood pressure, systolic 134 mm[Hg] Arpita kLogic blood pressure, cuff size regular Ta bitamelia Fernando blood pressure, diastolic 66 mm[Hg] Ta bitha Fernando blood pressure, systolic 134 mm[Hg] [facility] [place] oxygen saturation, oximetry 99 % [facility] respiratory rate E&M 12 /min Cheri [place] pulse rate 89 /min Cheri [place] weight E&M 127.2 [lb_av] Cheri [place] height E&M 64 [in_i] Cheri [place] Body Mass Index (Ratio) 24.37 kg/m2 Lawson Elizondo MD blood pressure, diastolic 62 mm[Hg] Li nkLogjuana blood pressure, systolic 116 mm[Hg] Arpita kLogic blood pressure, cuff size regular Ca therine [place] blood pressure, diastolic 62 mm[Hg] Ca therine [place] blood pressure, systolic 116 mm[Hg] Cat herine [place] pulse rate 90 /min Lucina [place] oxygen saturation, oximetry 96 % Lucina Fitz respiratory rate E&M 16 /min Sherry ne [place] weight E&M 142 [lb_av] Lucina Fitz height E&M 64 [in_i] Lucina [place] ALLERGIES No Known Drug Allergies HISTORY OF MEDICATION USE Medication Status Instructions Dates Provider Indications Com ments meclizine 25 mg tablet active TAKE 1 TABLET BY MOUTH TWICE DAILY NEEDED FOR DIZZINESS 06/18 Rosemary Elizondo MD losartan-hydrochlorot hiazide 100-25 mg tablet active Take 1 tablet by mouth once daily 05/04 Tabatha Alanis 80-4.5 mcg/actuation HFA aerosol inhaler completed - 02/16 Rosemary Elizondo MD atorvastatin 40 mg tablet completed - 02/16 Rosemary Elizondo MD losartan 50 mg tablet completed - 06/20 Julius Garcia losartan-hydrochlorot hiazide 100-25 mg tablet completed Take 1 tablet by mouth once a day 06/20 - 02/16 Rosemary Elizondo MD meclizine 25 mg tablet completed Take 1 tablet by mouth twice a day as needed for dizziness 06/20 - 02/16 Rosemary Elizondo MD meclizine 25 mg tablet completed - 06/20 Julius Garcia hydrochlorothiazide 25 mg tablet completed TAKE 1 TABLET BY MOUTH EVERY DAY IN THE MORNING - 06/20 Julius Garcia Flovent HFA 110 mcg/actuation HFA aerosol inhaler active Lucina [place] phenytoin sodium extended 100 mg capsule completed TAKE 1 CAPSULE BY MOUTH EVERY MORNING, AT NOON, AND TAKE 2 CAPSULES AT BEDTIME - 06/20 Julius Garcia loratadine 10 mg tablet completed TAKE 1 TABLET BY MOUTH EVERY DAY - 06/20 Julius Garcia fluticasone propionate 50 mcg/actuation spray,suspension active Lucina [place] albuterol sulfate 90 mcg/actuation HFA aerosol inhaler active Lucina Byrnes benazepril 40 mg tablet completed - 06/20 Julius Ewelinaluz simvastatin 80 mg tablet completed - 06/20 Julius Garcia SOCIAL HISTORY Date Observation Value Provider smoking status Never smoker Julius Garcia smoking status Never smoker Julius Garcia social history E&M S moking History: Usha hebert has never smoked. Julius Garcia social history reviewed E&M reviewed - no changes required Julius Ewelinaluz smoking status Never smoker Lucina Tatyana s INSURANCE PROVIDERS Payer name Policy type / Coverage type [place] [employer] [facility] [id number] ADVANCE DIRECTIVES Name Date DISCUSSED - NO DECISION MADE TREATMENT PLAN Date Name Performer [id number],S, Julius Wyattkeron i [id number],S, Julius Ewelina i [id number],S, Julius Ewelina i [id number],S, Julius Ewelina i [id number],S, Julius Ewelina i Cardiology Rosemary Elizondo MD Cardiology Rosemary Elizondo MD Cardiology Julius Garcia Cardiology: B P today: 134/66 P rior BP: 116/62 (09/08/2021) H er updated medication list for this problem includes: Losartan-hydrochlorothiazide 100-25 Mg Tablet (Losartan-hydrochlorothiazide) ..... Take 1 tablet by mouth once a day Julius Garcia Cardiology Julius Garcia Cardiology Julius Garcia Cardiology Julius Garcia Cardiology Julius Garcia Cardiology Julius Garcia Cardiology Julius Garcia Cardiology Julius Garcia Date Name Complete Echo HISTORY OF PROCEDURES Procedure Date Procedure Name Provider Procedure Notes S tatus EKG Rosemary Elizondo MD completed EKG Rosemary Elizondo MD completed
--- OUTSIDE RECORDS SUMMARY | 2024-07-02 10:50 | XMS_ITS | Data Portability ---
Author Organization [facility] [employer], Main Office Address [address] [place] [address] Care Team Providers Care Physical Security Manager Name Role Phone SARA MURO Primary Care Provider [phone] Assessment Encounter Date Assessment Date Assessment LastModified by Organization Details LastModified Time 09/01/2022 09/01/2022 This note is dictated and transcribed by [employer]. [employer] variances may occur. Despite proofreading, typographical errors may occur. Not available 09/01/2022 11:20:27 12/01/2022 12/01/2022 This note is dictated and transcribed by [employer]. [employer] variances may occur. Despite proofreading, typographical errors may occur. Not available 12/01/2022 14:39:18 06/05/2023 06/05/2023 This note is dictated and transcribed by [employer]. [employer] variances may occur. Despite proofreading, typographical errors may occur. Occasional wrong-word or 'jywhd-[id number]' substitutions may have occurred due to the inherent limitations of voice recording. Read the chart carefully and recognize, using context, where substitutions have occurred. Not available 06/05/2023 15:04:52 Plan of Treatment Reminders Order Date Submit Date Provider Last Modified By Organization Details Last Modified Time Details Appointments None recorded. Lab None recorded. Referral None recorded. Procedures None recorded. Surgeries None recorded. Imaging None recorded. Medication Orders ketoconazol e 2 % topical cream 2022 023 [facility]/Pharmacy #[id number], [address] [place], [address], 14:39:02 Patient TargetsNo targets recorded. Patient InstructionsNo instructions recorded. Reason for Referral None Reported. Results Created Date Observation Date Name Description Value Unit Range Abnormal Flag Note LastModifiedBy Organization Detail LastModifiedTime 01/20/20 22 01/28/2022 QUANT IFERO N(R)- TB GOLD PLUS, 1 TUBE quantiferon( R)-TB gold plus, 1 tube negati ve negati ve normal Negat rudolph test resul t. M. david liu is compl ex infec tion unlik rosas. Not Available [address], [address], 01/28/2022 16:58:28 01/20/20 22 01/28/2022 QUANT IFERO N(R)- TB GOLD PLUS, 1 TUBE nil 0.01 IU/mL normal Not Available [address], [address], 01/28/2022 16:58:28 01/20/20 22 01/28/2022 QUANT IFERO N(R)- TB GOLD PLUS, 1 TUBE mitogen-nil >10.00 IU/mL normal Not Available [address], [address], 01/28/2022 16:58:28 01/20/20 22 01/28/2022 QUANT IFERO N(R)- TB GOLD PLUS, 1 TUBE TB1-nil 0.00 IU/mL normal Not Available [address], [address], 01/28/2022 16:58:28 01/20/20 22 01/28/2022 QUANT IFERO N(R)- TB GOLD PLUS, 1 TUBE TB2-nil 0.00 IU/mL normal The Nil tube value refle cts the backg round inter feron gamma immun e respo nse of the patie nt's blood sampl e. This value has been subtr acted from the patie nt's displ ayed TB and Mitog en resul ts. Lower than expec yudy resul ts with the Mitog en tube preve nt false -nega tive Quant ifero n readi ngs by detec ting a patie nt with a poten tial immun e suppr essiv e condi tion and/o r subop timal pre-a nalyt ical speci men handl ing. The TB1 Antig en tube is coate d with the M. tuber krystalos is-sp ecifi c antig ens desig george to elici t respo nses from TB antig en prime d CD4+ helpe r T-lym phocy narciso. The TB2 Antig en tube is coate d with the M. tuber culos is-sp ecifi c antig ens desig george to elici t respo nses from TB antig en prime d CD4+ helpe r and CD8+ cytot oxic T-lym phocy narciso. For addit ional infor varinder marin e refer to https ://ed ucati on.qu [employer]f aq/FA Q204 (This link is being provi ded for infor jessica harris/ educa tez l purpo ses only. ) Not Available [facility] [address] [place], [address], 01/28/2022 16:58:28 01/20/2001/28/2022 B TYPE NATRI URETI C PEPTI DE (BNP) B type natriuretic peptide (BNP) 41 pg/mL <100 normal BNP level s incre ase with age in the gener al popul ation with the highe st value s seen in indiv idual s great er than 75 years of age. Refer ence: J. Am. Getachew. Cardi ol. 2002; 40:97 6-982 . Not Available [facility] [address] [place], [address], 01/28/2022 16:58:27 01/20/2001/28/2022 ALPHA -1-AN TITRY PSIN (AAT) PHENO TYPE jiyzq-3-iivt trypsin (aat) phenotype see note THIS PATIE NT'S ALPHA -1-AN TITRY PSIN PHENO TYPE IS PI*MM . 90% of cary l indiv idual s have the MM pheno type, with cary l quant itati ve AAT level s. Many pheno typic patte rns have been descr ibed, inclu ding defic iency state s with F, S, Z, or other allel es. As a gener al estim ation , yolanda red to M allel e of 100% of cary l A-1-A ntitr ypsin prote in, the S allel e produ meet appro ximat rosas 60% and the Z allel e 20%. For examp le, an MS pheno type would have about 80% of cary l A-1-A ntitr ypsin prote in level , a 50% contr ibuti on from the M allel e and 30% from the S allel e. A ZZ pheno type would have about 20% of cary l level s, a 10% contr ibuti on from each Z gene. The F allel e has cary l A-1-A ntitr ypsin level s, but the kinet ics of elast ase inhib ition is not as effic ient as an M allel e produ ct; F allel es shoul d be consi dered funct ional ly mildl y defic ient. Other varia nts are ident ifiab le by pheno typic yudi sis. These inclu de CM, DP, EM, GM, IS, LM, M1M2, M3M3, MP, MT, XX, MY, and M1N. I, P, T and null allel es are consi dered delet eriou s. C, D, E, G, L, M1, M2, M3, X and Y allel es are gener ally consi dered cary l varia nts. The MZ-Pr att pheno type is a cary l varia nt; care shoul d be taken to avoid confu adri with the defic ient MZ pheno type. Not Available [facility] [address] [place], [address], 01/28/2022 16:58:27 01/20/20 22 01/28/2022 EOSIN OPHIL COUNT (B) white blood cell count 6.7 thous and/u L 3.8-10 .8 normal Not Available [facility] [address] [place], [address], 01/28/2022 16:58:26 01/20/20 22 01/28/2022 EOSIN OPHIL COUNT (B) absolute eosinophils 27 cells /uL 15-500 normal Not Available [address], [address], 01/28/2022 16:58:26 01/20/20 22 01/28/2022 EOSIN OPHIL COUNT (B) eosinophils 0.4 % normal Not Available [address], [address], 01/28/2022 16:58:26 01/20/20 22 01/28/2022 IMMUN OGLOB ULIN G SUBCL ASSES PANEL immunoglobul in g subclass 1 421 mg/dL 382-92 9 Not Available [address], [address], 01/28/2022 16:58:26 01/20/20 22 01/28/2022 IMMUN OGLOB ULIN G SUBCL ASSES PANEL immunoglobul in g subclass 2 198 mg/dL 241-70 0 low Not Available [address], [address], 01/28/2022 16:58:26 01/20/20 22 01/28/2022 IMMUN OGLOB ULIN G SUBCL ASSES PANEL immunoglobul in g subclass 3 39 mg/dL 22-178 Not Available [address], [address], 01/28/2022 16:58:26 01/20/20 22 01/28/2022 IMMUN OGLOB ULIN G SUBCL ASSES PANEL immunoglobul in g subclass 4 43.3 mg/dL 4.0-86 .0 Not Available [address], [address], 01/28/2022 16:58:26 01/20/20 22 01/28/2022 IMMUN OGLOB ULIN G SUBCL ASSES PANEL immunoglobul in g, serum 752 mg/dL 600-15 40 Not Available [facility] [address] [address] [place], [address], 01/28/2022 16:58:26 01/20/20 22 01/28/2022 INTER PRETA TION interpretati on Speci fic Level of Aller gen IGE Class kU/L Speci fic IGE Antib lucero ----- ----- ---- ----- ----- ----- ---- 0 <0.10 Absen t/Und etect able 0/1 0.10- 0.34 Very Low Level 1 0.35- 0.69 Low Level 2 0.70- 3.49 Moder ate Level 3 3.50- 17.4 High Level 4 17.5- 49.9 Very High Level 5 50-10 0 Very High Level 6 >100 Very High Level The clini candida relev ance of aller gen resul ts of 0.10- 0.34 kU/L are undet ermin ed and inten ded for speci alist use. Aller gens denot ed with a inclu de resul ts using one or more yudi te speci fic reage nts. In those cases , the test was devel oped and its yudi tical perfo rmanc e jen cteri stics have been deter mined by [facility]. It has not been clear ed or appro chad by the U.S. Food and Drug Admin istra tion. This assay has been valid ated pursu ant to the CLIA regul ation s and is used for clini candida purpo ses. Not Available [facility] [address] [place], [address], 01/28/2022 16:58:25 01/20/20 22 01/28/2022 RESPI RATOR Y ALLER GY PROFI LE REGIO N VIII class 0 Not Available [facility] [address] [place], [address], 01/28/2022 16:58:25 01/20/20 22 01/28/2022 RESPI RATOR Y ALLER GY PROFI LE REGIO N VIII dermatophago ides pteronyssinu s (D1) IgE 0.43 kU/L high Not Available [address] [address] [place], [address], 01/28/2022 16:58:25 01/20/20 22 01/28/2022 RESPI RATOR Y ALLER GY PROFI LE REGIO N VIII class 1 Not Available [address] [address] [place], [address], 01/28/2022 16:58:25 01/20/20 22 01/28/2022 RESPI RATOR Y ALLER GY PROFI LE REGIO N VIII dermatophago ides farinae (D2) IgE 0.32 kU/L high Not Available [address], [address], 01/28/2022 16:58:25 01/20/20 22 01/28/2022 RESPI RATOR Y ALLER GY PROFI LE REGIO N VIII class 0/1 Not Available [address], [address], 01/28/2022 16:58:25 01/20/20 22 01/28/2022 RESPI RATOR Y ALLER GY PROFI LE REGIO N VIII penicillium notatum (M1) IgE <0.10 kU/L normal Not Available [address], [address], 01/28/2022 16:58:25 01/20/20 22 01/28/2022 RESPI RATOR Y ALLER GY PROFI LE REGIO N VIII cladosporium herbarum (M2) IgE <0.10 kU/L normal Not Available [address], [address], 01/28/2022 16:58:25 01/20/20 22 01/28/2022 RESPI RATOR Y ALLER GY PROFI LE REGIO N VIII class 0 Not Available [facility] [address] [place], [address], 01/28/2022 16:58:25 01/20/20 22 01/28/2022 RESPI RATOR Y ALLER GY PROFI LE REGIO N VIII aspergillus fumigatus (M3) IgE 2.18 kU/L high Not Available [address], [address], 01/28/2022 16:58:25 01/20/20 22 01/28/2022 RESPI RATOR Y ALLER GY PROFI LE REGIO N VIII class 2 Not Available [address], [address], 01/28/2022 16:58:25 01/20/20 22 01/28/2022 RESPI RATOR Y ALLER GY PROFI LE REGIO N VIII alternaria alternata (M6) IgE 0.41 kU/L high Not Available [address] [address] [place], [address], 01/28/2022 16:58:25 01/20/20 22 01/28/2022 RESPI RATOR Y ALLER GY PROFI LE REGIO N VIII class 1 Not Available [address], [address], 01/28/2022 16:58:25 01/20/20 22 01/28/2022 RESPI RATOR Y ALLER GY PROFI LE REGIO N VIII CAT dander (E1) IgE 11.50 kU/L high Not Available [address] [address] [place], [address], 01/28/2022 16:58:25 01/20/20 22 01/28/2022 RESPI RATOR Y ALLER GY PROFI LE REGIO N VIII class 3 Not Available [address] [address] [place], [address], 01/28/2022 16:58:25 01/20/20 22 01/28/2022 RESPI RATOR Y ALLER GY PROFI LE REGIO N VIII dog dander (E5) IgE 4.71 kU/L high Not Available [address], [address], 01/28/2022 16:58:25 01/20/20 22 01/28/2022 RESPI RATOR Y ALLER GY PROFI LE REGIO N VIII class 3 Not Available [address] [address] [place], [address], 01/28/2022 16:58:25 01/20/20 22 01/28/2022 RESPI RATOR Y ALLER GY PROFI LE REGIO N VIII cockroach (I6) IgE 0.21 kU/L high Not Available [address] [address] [place], [address], 01/28/2022 16:58:25 01/20/20 22 01/28/2022 RESPI RATOR Y ALLER GY PROFI LE REGIO N VIII class 0/1 Not Available [address], [address], 01/28/2022 16:58:25 01/20/20 22 01/28/2022 RESPI RATOR Y ALLER GY PROFI LE REGIO N VIII maple (box elder) (T1) IgE <0.10 kU/L normal Not Available [address], [address], 01/28/2022 16:58:25 01/20/20 22 01/28/2022 RESPI RATOR Y ALLER GY PROFI LE REGIO N VIII class 0 Not Available [address], [address], 01/28/2022 16:58:25 01/20/20 22 01/28/2022 RESPI RATOR Y ALLER GY PROFI LE REGIO N VIII mountain cedar (T6) IgE <0.10 kU/L normal Not Available [address] [address] [place], [address], 01/28/2022 16:58:25 01/20/20 22 01/28/2022 RESPI RATOR Y ALLER GY PROFI LE REGIO N VIII class 0 Not Available [address] [address] [place], [address], 01/28/2022 16:58:25 01/20/20 22 01/28/2022 RESPI RATOR Y ALLER GY PROFI LE REGIO N VIII walnut tree (T10) IgE <0.10 kU/L normal Not Available [address] [address] [place], [address], 01/28/2022 16:58:25 01/20/20 22 01/28/2022 RESPI RATOR Y ALLER GY PROFI LE REGIO N VIII class 0 Not Available [address] [address] [place], [address], 01/28/2022 16:58:25 01/20/20 22 01/28/2022 RESPI RATOR Y ALLER GY PROFI LE REGIO N VIII sycamore (T11) IgE <0.10 kU/L normal Not Available [address] [address] [place], [address], 01/28/2022 16:58:25 01/20/20 22 01/28/2022 RESPI RATOR Y ALLER GY PROFI LE REGIO N VIII class 0 Not Available [address] [address] [place], [address], 01/28/2022 16:58:25 01/20/20 22 01/28/2022 RESPI RATOR Y ALLER GY PROFI LE REGIO N VIII cottonwood (T14) IgE <0.10 kU/L normal Not Available [address] [address] [place], [address], 01/28/2022 16:58:25 01/20/20 22 01/28/2022 RESPI RATOR Y ALLER GY PROFI LE REGIO N VIII class 0 Not Available [address], [address], 01/28/2022 16:58:25 01/20/20 22 01/28/2022 RESPI RATOR Y ALLER GY PROFI LE REGIO N VIII white shaji (T15) IgE 0.32 kU/L high Not Available [address] [address] [place], [address], 01/28/2022 16:58:25 01/20/20 22 01/28/2022 RESPI RATOR Y ALLER GY PROFI LE REGIO N VIII class 0/1 Not Available [address], [address], 01/28/2022 16:58:25 01/20/20 22 01/28/2022 RESPI RATOR Y ALLER GY PROFI LE REGIO N VIII oak (T7) IgE <0.10 kU/L normal Not Available [address], [address], 01/28/2022 16:58:25 01/20/20 22 01/28/2022 RESPI RATOR Y ALLER GY PROFI LE REGIO N VIII class 0 Not Available [address], [address], 01/28/2022 16:58:25 01/20/20 22 01/28/2022 RESPI RATOR Y ALLER GY PROFI LE REGIO N VIII elm (T8) IgE <0.10 kU/L normal Not Available [address], [address], 01/28/2022 16:58:25 01/20/20 22 01/28/2022 RESPI RATOR Y ALLER GY PROFI LE REGIO N VIII class 0 Not Available [address], [address], 01/28/2022 16:58:25 01/20/20 22 01/28/2022 RESPI RATOR Y ALLER GY PROFI LE REGIO N VIII hickory/peca n tree (T22) IgE <0.10 kU/L normal Not Available [address], [address], 01/28/2022 16:58:25 01/20/20 22 01/28/2022 RESPI RATOR Y ALLER GY PROFI LE REGIO N VIII class 0 Not Available [address], [address], 01/28/2022 16:58:25 01/20/20 22 01/28/2022 RESPI RATOR Y ALLER GY PROFI LE REGIO N VIII white mulberry (T70) IgE <0.10 kU/L normal Not Available [address], [address], 01/28/2022 16:58:25 01/20/20 22 01/28/2022 RESPI RATOR Y ALLER GY PROFI LE REGIO N VIII class 0 Not Available [address], [address], 01/28/2022 16:58:25 01/20/20 22 01/28/2022 RESPI RATOR Y ALLER GY PROFI LE REGIO N VIII bermuda grass (g2) IgE <0.10 kU/L normal Not Available [facility] [address], [address], 01/28/2022 16:58:25 01/20/20 22 01/28/2022 RESPI RATOR Y ALLER GY PROFI LE REGIO N VIII class 0 Not Available [facility] [address] [place], [address], 01/28/2022 16:58:25 01/20/20 22 01/28/2022 RESPI RATOR Y ALLER GY PROFI LE REGIO N VIII nneka grass (g6) IgE 0.61 kU/L high Not Available [address], [address], 01/28/2022 16:58:25 01/20/20 22 01/28/2022 RESPI RATOR Y ALLER GY PROFI LE REGIO N VIII class 1 Not Available [address] [address] [place], [address], 01/28/2022 16:58:25 01/20/20 22 01/28/2022 RESPI RATOR Y ALLER GY PROFI LE REGIO N VIII common ragweed (short) (W1) IgE 0.18 kU/L high Not Available [address], [address], 01/28/2022 16:58:25 01/20/20 22 01/28/2022 RESPI RATOR Y ALLER GY PROFI LE REGIO N VIII class 0/1 Not Available [address], [address], 01/28/2022 16:58:25 01/20/20 22 01/28/2022 RESPI RATOR Y ALLER GY PROFI LE REGIO N VIII class 1 Not Available [address], [address], 01/28/2022 16:58:25 01/20/20 22 01/28/2022 RESPI RATOR Y ALLER GY PROFI LE REGIO N VIII rough pigweed (W14) IgE <0.10 kU/L normal Not Available [address], [address], 01/28/2022 16:58:25 01/20/20 22 01/28/2022 RESPI RATOR Y ALLER GY PROFI LE REGIO N VIII class 0 Not Available [address] [address] [place], [address], 01/28/2022 16:58:25 01/20/20 22 01/28/2022 RESPI RATOR Y ALLER GY PROFI LE REGIO N VIII equatorial guinean thistle (W11) IgE 0.46 kU/L high Not Available [address] [address] [place], [address], 01/28/2022 16:58:25 01/20/20 22 01/28/2022 RESPI RATOR Y ALLER GY PROFI LE REGIO N VIII rough welch elder (W16) IgE <0.10 kU/L normal Not Available [address] [address] [place], [address], 01/28/2022 16:58:25 01/20/20 22 01/28/2022 RESPI RATOR Y ALLER GY PROFI LE REGIO N VIII class 0 Not Available [address] [address] [address] , [place], [address], 01/28/2022 16:58:25 01/20/20 22 01/28/2022 RESPI RATOR Y ALLER GY PROFI LE REGIO N VIII mouse urine proteins (E72) IgE <0.10 kU/L normal Not Available [address] [address] [address] , [place], [address], 01/28/2022 16:58:25 01/20/20 22 01/28/2022 RESPI RATOR Y ALLER GY PROFI LE REGIO N VIII class 0 Not Available [address] [address] [place], [address], 01/28/2022 16:58:25 01/20/20 22 01/28/2022 RESPI RATOR Y ALLER GY PROFI LE REGIO N VIII immunoglobul in E 169 kU/L <or=11 4 high Not Available [address] [address] [place], [address], 01/28/2022 16:58:25 02/15/19 23 02/15/2022 XR, chest , 2 view No observ ation record ed. [id number] [facility] (One Call Scheduling) [address] [facility], [place], [address], 04/07/2022 01:26:59 03/28/19 23 03/18/2022 PFT, compl ete No observ ation record ed. [id number] [facility] (Imaging) [address], [place], [address], 04/07/2022 01:26:59 Result Notes None recorded. Problems Name Problem SNOMED Code Status Onset Date Resolution Date Notes Provider Name and Address Organization Details Recorded Time Peripheral vertigo 46031140 Active 2021 Not Available [facility] 3 01:25:31 Asthma 694126321 Active 2022 Mar blackwell, [employer] 3 10:34:55 Dystrophia unguium 18809393 Active 2022 Jared Rousseau DPM [address], [address] , [employer] 3 11:19:33 Hammer toe 223734862 Active 2022 Jared Rousseau DPM [address], [address] , [employer] 3 11:19:37 Onychomycosis of toenails 214660770 Active 2022 Jared Rousseau DPM [address] [address], [place], [address] , [employer] 3 14:38:46 Notes:Medical History: Epile psy on Dilantin Vertigo on meclizine Hypogammaglobulinemia (IgG2) Rhinitis to multiple environmental allergens Eosinophils 27/uL IgE 169 kU/L (+) Aspergillus fumigatus IgE AAT PiMM Hypertension Hyperlipidemia T2DM with neuropathy Stage 3A CKD Vit D deficiency Procedure History: T&A 1950 Cholecystectomy 1962 JOSE-BSO 1973 Right cataract extraction with IOL placement 1996 Colonoscopy with polypectomy 2013 Hemicolectomy 2013 Occupational History: Homemaker Problem Notes None recorded. Procedures Surgical History Date Name Laterality Status Provider Name and Address Organization Details Recorded Time 4 Nail Debridement completed Jared Rousseau DPM [address], [address], [place], [address], [employer] 06/05/2023 15:03:52 4 Nail Debridement completed Jared Rousseau DPM [address], [address], [place], [address], [facility] 03/02/2023 14:48:15 3 Nail Debridement completed Jared Rousseau DPM [address], [address], [place], [address], [employer] 12/01/2022 14:38:41 3 Nail Debridement completed Jared Rousseau DPM [address], [address], [place], [address], [employer] 09/01/2022 11:19:21 Imaging Results None recorded. Procedure Notes None recorded. Medical Equipment None Reported. Medications Name Sig Start Date Stop Date Status Note LastModified by Organization Details LastModified Time losartan 50 mg tablet TAKE 1 TABLET BY MOUTH EVERY DAY active Not Available Not Available No t Available atorvastati n 40 mg tablet TAKE 1 TABLET BY MOUTH ONCE DAILY active Not Available Not Available No t Available phenytoin sodium extended 100 mg capsule TAKE 1 CAPSULE BY MOUTH EVERY MORNING, AT NOON, AND TAKE 2 CAPSULES AT BEDTIME 09/01 completed Not Available Not Available Not Available simvastatin 80 mg tablet TAKE 1 TABLET BY MOUTH ONCE DAILY active Not Available Not Available No t Available losartan 100 mg-hydrochl orothiazide 25 mg tablet TAKE 1 TABLET BY MOUTH ONCE DAILY active Not Available Not Available No t Available meclizine 25 mg tablet TAKE 1 TABLET BY MOUTH TWICE DAILY NEEDED FOR DIZZINESS active Not Available Not Available No t Available cephalexin 500 mg capsule TAKE 1 CAPSULE BY MOUTH EVERY 6 HOURS FOR 10 DAYS 01/12 completed Not Available Not Available Not Available metformin 1,000 mg tablet TAKE 1 TABLET BY MOUTH EVERY DAY WITH BREAKFAST 09/01 completed Not Available Not Available Not Available hydrochloro thiazide 25 mg tablet TAKE 1 TABLET BY MOUTH EVERY DAY IN THE MORNING 09/01 completed Not Available Not Available Not Available benazepril 40 mg tablet TAKE 1 TABLET BY MOUTH EVERY DAY active Not Available Not Available No t Available methylpredn isolone 4 mg tablets in a dose pack TAKE 6 TABLETS ON DAY 1 DIRECTED ON PACKAGE AND DECREASE BY 1 TAB EACH DAY FOR A TOTAL OF 6 DAYS 01/12 completed Not Available Not Available Not Available albuterol sulfate HFA 90 mcg/actuati on aerosol inhaler INHALE 2 PUFFS BY MOUTH EVERY 6 HOURS NEEDED active Not Available Not Available No t Available ketoconazol e 2 % topical cream APPLY TO THE AFFECTED AREA(S) TOENAILS BY TOPICAL ROUTE ONCE DAILY active Not Available Not Available No t Available fluticasone propionate 50 mcg/actuati on nasal spray,suspe nsion SPRAY 2 SPRAYS INTO EACH NOSTRIL EVERY DAY 09/01 completed Not Available Not Available Not Available loratadine 10 mg tablet TAKE 1 TABLET BY MOUTH EVERY DAY 09/01 completed Not Available Not Available Not Available amoxicillin 500 mg-potassiu m clavulanate 125 mg tablet TAKE 1 TABLET BY MOUTH EVERY 8 HOURS FOR 10 DAYS active Not Available Not Available No t Available Flovent HFA 110 mcg/actuati on aerosol inhaler INHALE 1 PUFF BY MOUTH TWICE A DAY active Not Available Not Available No t Available cholecalcif mary alice (vitamin D3) 50 mcg (2,000 unit) tablet TAKE 1 TABLET BY MOUTH EVERY DAY 09/01 completed Not Available Not Available Not Available Urbano Patel [facility] spacer DIRECTED active Not Available Not Available No t Available Breyna 80 mcg-4.5 mcg/actuati on HFA aerosol inhaler INHALE 2 PUFFS BY MOUTH 2 TIMES PER DAY active Not Available Not Available No t Available Vitals Date Recorded Body height Heart rate Respiratory rate Oxygen saturation Oxygen saturation in Arterial blood by Pulse oximetry Systolic And Diastolic Provider Name and Address Organization Details Last Updated DateTime 4 162.56 cm 75 /min 14 /min 98 % 98 % 142/79 mm[Hg] Mar [facility] [employer] [facility] 4 14:20:30 Date Recorded Body height Body mass index (BMI) Body weight Heart rate Respiratory rate Oxygen saturation Oxygen saturation in Arterial blood by Pulse oximetry Systolic And Diastolic Provider Name and Address Organization Details Last Updated DateTime 4 162.56 cm 21.5 kg/m2 39909.0 5 g 83 /min 14 /min 98 % 98 % 116/63 mm[Hg] Edwige Poncho [facility] [employer] [facility] 4 14:39:49 Date Recorded Body height Body mass index (BMI) Body weight Provider Name and Address Organization Details Last Updated DateTime 09/01/2022 162.56 cm 21.5 kg/m2 25501.05 g Mar Senior [facility] 09/01/2022 10:33:45 Date Recorded Heart rate Respiratory rate Oxygen saturation Oxygen saturation in Arterial blood by Pulse oximetry Systolic And Diastolic Provider Name and Address Organization Details Last Updated DateTime 3 81 /min 14 /min 98 % 98 % 122/66 mm[Hg] Edwige Isaac [facility] 3 10:38:44 Date Recorded Body height Body mass index (BMI) Body weight Heart rate Respiratory rate Oxygen saturation Oxygen saturation in Arterial blood by Pulse oximetry Systolic And Diastolic Provider Name and Address Organization Details Last Updated DateTime 3 162.56 cm 21.5 kg/m2 04775.0 5 g 95 /min 14 /min 98 % 98 % 153/82 mm[Hg] Edwige Poncho [facility] 3 14:06:53 Date Recorded Body mass index (BMI) Heart rate Body height Oxygen saturation Oxygen saturation in Arterial blood by Pulse oximetry Heart rate Respiratory rate Body temperature Body weight Systolic And Diastolic Provider Name and Address Organization Details Last Updated DateTime 2 24 kg/m2 97 /min 163.83 cm 96 % 96 % 97 /min 15 /min 98.4 [degF] 80304.4 g 136/80 mm[Hg] Not Available [facility] 3 01:25:05 Social History Question Answer Notes LastModified by Organizat ion Details LastModified Time Tobacco Smoking Status Never Smoker Not Available [facility] 04/07/2022 01:23:56 In The 14 Days Before Symptom Onset, Have You Had Close Contact With A Laboratory-confir med COVID-19 While That Case Was Ill? No MIGRATION.[id number] Information not available 04/07/2022 In The 14 Days Before Symptom Onset, Have You Had Close Contact With A Person Who Is Under Investigation For COVID-19 While That Person Was Ill? No MIGRATION.85416 65294 Information not available 04/07/2022 What Type Of Diet Are You Following? REGULAR MIGRATION.28806 07665 Information not available 04/07/2022 Do You Have An Electrostatic Air Filter? No MIGRATION.14927 80019 Information not available 04/07/2022 Are There Any Guns Present In Your Home? No MIGRATION.29636 40237 Information not available 04/07/2022 Do You Have A Humidifier? No MIGRATION.75374 80020 Information not available 04/07/2022 Where Do You Live? [place] MIGRATION.59786 06659 Information not available 04/07/2022 Do You Have Moisture Problems In Your Home? No MIGRATION.77602 14255 Information not available 04/07/2022 What Was The Date Of Your Most Recent Tobacco Screening? 01/19/2022 MIGRATION.20610 29390 Information not available 04/07/2022 Do You Have Any Pets? Yes MIGRATION.96552 74719 Information not available 04/07/2022 Do You Have Smoke And Carbon Monoxide Detectors In Your Home? Yes MIGRATION.01276 92878 Information not available 04/07/2022 Are You Passively Exposed To Smoke? No MIGRATION.95871 05634 Information not available 04/07/2022 Do You Use Sunscreen Routinely? No MIGRATION.25197 26583 Information not available 04/07/2022 Have You Recently Traveled Abroad? No MIGRATION.77740 61464 Information not available 04/07/2022 Do You Have Any Dietary Restrictions? No MIGRATION.61808 04073 Information not available 04/07/2022 Sex: Unknown Functional Status Question Answer Note LastModified by Organizat ion Details LastModified Time Do you use any illicit or recreational drugs? No MIGRATION.[id number] 26 Information not available 04/07/2022 What is your level of alcohol consumption? None MIGRATION.20988700 26 Information not available 04/07/2022 What is your exercise level? Moderate MIGRATION.[id number] 26 Information not available 04/07/2022 Mental Status None recorded. Family History Relationship Description Onset Age of this Age Resolved Age Notes LastModified by Organization Details LastModified Time Father Myocardial infarction MIGRATION.764 [id number] Not available 04/07/2022 01:24:33 Mother Alzheimer's disease MIGRATION.887 1181001 Not available 04/07/2022 01:24:33 Mother Methicillin resistant Staphylococc us aureus infection MIGRATION.274 [id number] Not available 04/07/2022 01:24:33 Unspecified Relation Hypertensive disorder [email or web address] Not available 2022 10:35:10 Medical History Condition Response DIABETES, TYPE N USE OF BLOOD THINNERS N HYPERTENSION Y DIZZINESS Y HIGH CHOLESTEROL / HYPERLIPIDEMIA N Gynecological HistoryNo gynecological history recorded. Obstetrics History GPAL:G 0 P 0 0 0 0 Past Encounters Encounter ID Performer Location Encounter Start Date Encounter Closed Date Diagnosis/Indication Diagnosis SNOMED-CT Code Diagnosis ICD10 Code Diagnosis Note [id number] Sage Davis MD [facility] [place] [address] [place] [address] 10/06/2021 00:00:00 10/06/2021 12:38:17 [id number] Adam Heredia MD [facility] [place] [address] [address] 01/19/2022 00:00:00 01/19/2022 12:28:51 [id number] Jared Rousseau DPM [facility] [place] [address] [place] [address] 09/01/2022 10:31:37 09/01/2022 11:27:16 Hammer toe 527325734 M20.41 M20.42 treatment options reviewedpa tient elects to continue with conservati ve offloading Educated on wide shoe gear and offloading to prevent woundsFoll ow-up as needed Dystrophia unguium 61869 009 L60.3 Nails 1 through 10 were debrided with sharp mechanical debridemen t without incident. Nails were debrided and greater than 50% length and thickness where needed.Fol low-up in 3 months as needed for routine nail care [id number] Jared Rousseau DPM [facility] [place] [address] [place] [address] 12/01/2022 13:59:56 12/01/2022 15:58:38 Onychomycosis of toenails 294315468 B35.1 educated on treatment optionsNai ls debrided without incidentRx ketoconazo leFollow-u p in 3 months [id number] Jared Rousseau DPM [facility] [place] [address] [place] [address] 03/02/2023 14:13:31 03/08/2023 09:28:50 Dystrophia unguium 98236641 L60.3 Nails 1 through 10 were debrided with sharp mechanical debridemen t without incident. Nails were debrided and greater than 50% length and thickness where needed.Fol low-up in 3 months as needed for routine nail care [id number] Jared Rousseau DPM [facility] [place] [address] [place] [address] 06/05/2023 14:32:05 06/06/2023 11:11:43 Onychomycosis of toenails 420991442 B35.1 educated on treatment optionsNai ls debrided without incidentRx ketoconazo le, Continue daily to both great toenailsFo llow-up in 3 months Health Concerns Section Related Observation LastModified by Organization Detai ls LastModified Time None Recorded Concern Status LastModified by Organization Details LastModified Time None Recorded Advance Directives Directive None Recorded Payers Encounter Date Sequence Insurance Name Policy Number Policy Zuniga Covered Member ID [id number] Member ID Guarantor Name 09/01/2022 1 [employer] (MEDICARE REPLACEMENT/A DVANTAGE - HMO) Norma Chinchilla [id number] Norma Chinchilla 12/01/2022 1 [employer] (MEDICARE REPLACEMENT/A DVANTAGE - HMO) Norma Chinchilla [id number] Norma Chinchilla 03/02/2023 1 [employer] (MEDICARE REPLACEMENT/A DVANTAGE - HMO) Norma Chinchilla [id number] Norma Chinchilla 06/05/2023 1 [employer] (MEDICARE REPLACEMENT/A DVANTAGE - HMO) Norma Chinchilla [id number] Norma Chinchilla Notes Date Note Type Note Provider Name and Address Organization Details Recorded Time 09/01/2022 text/html . Patient is an 87-year-old female who presents the office for routine foot care. Patient states that she has elongated nails would like to have them cut as she is unable to do this. Patient states she did recently stubbed her left 2nd toe nail which she states has had some blue discoloration to the nail plate. Patient denies any redness or drainage from the area. Patient states she is no longer having any pain to the toenail. Patient denies any other pedal complaints. Jared Rousseau DPM [address], [place], [address], [facility] 09/01/2022 11:21:08 12/01/2022 text/html . Patient is an 87-year-old female who returns the office for follow-up on Elongated thickened toenails. Patient states she would like to try a topical medication to see if it will improve the nails. Patient denies any other pedal complaints. Jared Rousseau DPM [address], [place], [address], [facility] 12/01/2022 14:39:31 03/02/2023 text/html . Patient is an 87-year-old female who returns the office for routine foot care. Patient states her nails are long would like to have them cut. Patient denies any other complaints. Jared Rousseau DPM [address], [place], [address], [facility] 03/02/2023 14:48:32 06/05/2023 text/html . Patient is an 88-year-old female who returns the office for follow-up on bilateral great toenail onychomycosis to which she has been placing topical ketoconazole. Patient states the nails have improved with use of the ketoconazole. Patient denies any other complaints. Jared Rousseau DPM [address], [place], [address], [facility] 06/05/2023 15:05:04 OBGyn Episode No OBEpisode recorded.
--- OUTSIDE RECORDS SUMMARY | 2024-07-02 12:08 | XMS_ITS | Encounter Summary ---
Author Organization [facility] Facility Care Team Providers Care Psych Arnp Name Role Phone Ericka Perera Primary Care Provider [phone] Jimenez Tavarez MD Primary Care Provider [phone] Ericka Perera Primary Care Provider [phone] Encounter Details Date Type Department Care Team (Latest Contact Info) Description 01/03/2018 Orders Only [facility] ProviderJenn MD [address] [id number] Social History Tobacco Use Types Packs/Day Years Used Date Smoking Tobacco: Never Assessed Comments Unknown Sex and Gender Information Value Date Recorded Sex Assigned at Not on file Legal Sex Female 9:21 PM [employer] Gender Identity Not on file Sexual Orientation Not on file documented as of this encounter Plan of Treatment Not on file documented as of this encounter Procedures Procedure Name Priority Date/Time Associated Diagnosis Comments SCAN - LABS 01/04/2018 12:00 AM [employer] documented in this encounter Results * SCAN - LABS (01/04/2018 12:00 AM [employer] SAL[employer]) Narrative 01/04/2018 12:00 AM [employer] Ordered by an unspecified provider. Historical Provider Final Res ult documented in this encounter Visit Diagnoses Not on filedocumented in this encounter Care Teams Psych Arnp Relationship Specialty Start Date End Date Ericka Perera PA [address] [place] [address] PCP - General Internal Medicine 07/24/18 07/14/21 Jimenez Tavarez MD [address] [place] [address] PCP - General Emergency Medicine 09/27/21 11/28/21 Ericka Perera PA [address] [place] [address] PCP - General Internal Medicine 11/29/21 11/29/21 documented as of this encounter
--- OUTSIDE RECORDS SUMMARY | 2024-07-02 12:08 | XMS_ITS | Referral Summary ---
Author Organization [facility] [address] [facility] Address [address] [place] [address] Care Team Providers Care Computer Systems Design Analyst Name Role Phone Unavailable Primary Care Provider Unavailabl e Allergies No known active allergies Medications inhaler,assist devices,access deviceIndications: Mild intermittent asthma without complication Use with inhaler as directed. 1 Device 1 05/01/19 20 Active cholecalciferol (VITAMIN D-3) 2000 unit capsule 2,000 Units Activ e albuterol 2.5 mg /3 mL (0.083 %) nebulizer solution Take 3 mL (2.5 mg total) by nebulization 4 (four) times a day as needed for wheezing or shortness of breath 125 vial 1 10/31/19 20 Active meclizine (ANTIVERT) 25 mg tablet Take 1 tablet (25 mg total) by mouth 3 (three) times a day as needed for dizziness 20 tablet 1 12/03/19 20 Active fluticasone propionate (Flovent HFA) 110 mcg/actuation inhaler Inhale 1 puff 2 (two) times a day Rinse mouth with water after use. Do not swallow. 3 Inhaler 1 08/22/19 21 Active calcium carbonate (OS-BRANT) 1,500 mg (600 mg of elemental calcium) tablet Take 600 mg of elemental calcium by mouth Active pyridoxine (VITAMIN B-6) 100 mg tablet Take 100 mg by mouth daily Active loratadine (CLARITIN) 10 mg tablet TAKE 1 TABLET BY MOUTH EVERY DAY 90 tablet 1 01/13/20 21 Active simvastatin (ZOCOR) 80 mg tabletIndications: Type 2 diabetes mellitus with hyperlipidemia (HCC) TAKE 1 TABLET BY MOUTH EVERY DAY 90 tablet 1 05/18/19 22 Active phenytoin ER (DILANTIN) 100 mg ER capsuleIndications :Seizure disorder (HCC) TAKE 1 CAPSULE BY MOUTH EVERY MORNING, AT NOON, AND TAKE 2 CAPSULES AT BEDTIME 360 capsule 06/22/19 22 Active hydroCHLOROthiazid e (HYDRODIURIL) 25 mg tabletIndications: Hypertension, renal disease, stage 1-4 or unspecified chronic kidney disease TAKE 1 TABLET BY MOUTH EVERY DAY IN THE MORNING 90 tablet 07/15/19 22 Active metFORMIN (GLUCOPHAGE) 1,000 mg tabletIndications: Diabetes mellitus due to underlying condition with stage 3 chronic kidney disease, without long-term current use of insulin (HCC) Take 1 tablet (1,000 mg total) by mouth daily with breakfast 30 tablet 09/09/19 22 Active benazepriL (LOTENSIN) 40 mg tabletIndications: Hypertension, renal disease, stage 1-4 or unspecified chronic kidney disease Take 1 tablet (40 mg total) by mouth daily 30 tablet 09/09/19 22 Active fluticasone propionate (FLONASE) 50 mcg/actuation nasal spray SPRAY 2 SPRAYS INTO EACH NOSTRIL EVERY DAY 48 mL 09/09/19 22 Active Active Problems Problem Noted Date Diagnosed Date Breast cancer screening by mammogram 11/28/2020 Assessment & Plan (11/28/2020 7:36 PM CDT): Mammogram order provided Flu vaccine need 11/28/2020 Assessment & Plan (11/28/2020 7:36 PM CDT): Vaccine updated in office today Medicare annual wellness visit, subsequent 11/28 Assessment & Plan (11/28/2020 7:36 PM CDT): Encouraged healthy lifestyle, good nutrition and exercise. Encouraged Calcium and Vitamin D and weight bearing exercise for bone health. Reviewed immunizations. Reviewed age appropirate screenings. Medicare Wellness Documentation is completed within the chart BMI 24.0-24.9, adult 11/26/2020 Assessment & Plan (11/26/2020 7:50 AM CDT): Weight/BMI is in healthy range. Continue healthy lifestyle to maintain. Stage 3a chronic kidney disease 06/02/2020 Assessment & Plan (11/28/2020 7:34 PM CDT): Avoid nephrotoxic drugs including NSAIDs. Monitor labs. Assessment & Plan (08/29/2020 10:29 PM CDT): Avoid nephrotoxic drugs including NSAIDs. Monitor labs. Menopause 09/01/2019 Assessment & Plan (08/29/2020 10:28 PM CDT): DXA order provided Assessment & Plan (09/01/2019 10:30 PM CDT): Check DXA Vertigo 09/01/2019 Assessment & Plan (08/29/2020 10:24 PM CDT): Meclizine prn Assessment & Plan (12/03/2019 9:54 AM CDT): Meclizine prn Assessment & Plan (09/01/2019 10:31 PM CDT): Using meclizine from 2016 so provided a small supply for these rare episodes of vertigo. Seasonal allergies 02/03/2019 Assessment & Plan (08/29/2020 10:24 PM CDT): Continue current regimen Assessment & Plan (10/09/2019 9:27 PM CDT): Continue current regimen. 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 Start Flonase and Claritin. Encouraged supportive care. Push fluids. Rest. Reviewed that most viral conditions may have sxs that last for 10-14 days. If sxs worsen or don\'t fully resolve, pt is to followup in the office. Diabetes mellitus due to und erlying condition with stage 3 chronic kidney disease, without long-term current use of insulin 10/30/2018 Assessment & Plan (11/28/2020 7:32 PM CDT): Stressed importance of continued A1c control to minimize the snf effects of diabetes. Bring accuchecks to office when instructed to do so. Check A1c about every 3-6 months. Take medication as prescribed. Get annual eye exam. Encouraged ALISSA/Statin if able to tolerate. Encouraged weight control and encouraged diabetic diet and exercise. Avoid nephrotoxic drugs including NSAIDs. Monitor labs. Continue with the metformin ALISSA-inhibitor Assessment & Plan (08/29/2020 10:23 PM CDT): Stressed importance of continued A1c control to minimize the ferry terminal agent effects of diabetes. Bring accuchecks to office when instructed to do so. Check A1c about every 3-6 months. Take medication as prescribed. Get annual eye exam. Encouraged ALISSA/Statin if able to tolerate. Encouraged weight control and encouraged diabetic diet and exercise. Continue Metformin. Avoid nephrotoxic drugs including NSAIDs. Monitor labs. Assessment & Plan (12/03/2019 9:54 AM CDT): Avoid nephrotoxic drugs including NSAIDs. Monitor labs. Continue DM as stated above Assessment & Plan (09/01/2019 10:27 PM CDT): Stressed importance of continued A1c control to minimize the snf effects of diabetes. Bring accuchecks to office when instructed to do so. Check A1c about every 3-6 months. Take medication as prescribed. Get annual eye exam. Encouraged ALISSA/Statin if able to tolerate. Encouraged weight control and encouraged diabetic diet and exercise. Continue metformin Assessment & Plan (11/03/2018 10:41 PM CDT): Stressed importance of continued A1c control to minimize the snf effects of diabetes. Bring accuchecks to office when instructed to do so. Check A1c about every 3-6 months. Take medication as prescribed. Get annual eye exam. Encouraged ALISSA/Statin if able to tolerate. Encouraged weight control and encouraged diabetic diet and exercise. Take medication s as prescribed. Avoid nephrotoxic drugs including NSAIDs. Monitor labs. Hypertension associated with diabetes 10/30/2018 Assessment & Plan (11/28/2020 7:32 PM CDT): Bp is stable/in acceptable range for any co-morbidities. Encouraged to limit sodium intake and exercise for weight control. Continue hydrochlorothiazide and benazepril Assessment & Plan (08/29/2020 10:22 PM CDT): Bp is stable/in acceptable range for any co-morbidities. Encouraged to limit sodium intake and exercise for weight control. Continue HCTZ and benazepril Assessment & Plan (12/03/2019 9:53 AM CDT): Bp is stable/in acceptable range for any co-morbidities. Encouraged to limit sodium intake and exercise for weight control. Continue benazepril and HCTZ Assessment & Plan (10/09/2019 9:28 PM CDT): Bp is stable/in acceptable range for any co-morbidities. Encouraged to limit sodium intake and exercise for weight control. Assessment & Plan (09/01/2019 10:26 PM CDT): Bp is stable/in acceptable range for any co-morbidities. Encouraged to limit sodium intake and exercise for weight control. Assessment & Plan (11/03/2018 10:43 PM CDT): This is a significant, separately identifiable problem that was evaluated and managed on the same day as the wellness exam Bp is stable/in acceptable range for any co-morbidities. Encouraged to limit sodium intake and exercise for weight control. Stressed importance of taking medication as prescribed as she has been non- compliant, Continue the Benazepril and HCTZ Hypertension, renal disease, stage 1-4 or unspecified chronic kidney disease 10/30/2018 Assessment & Plan (11/28/2020 7:32 PM CDT): Bp is stable/in acceptable range for any co-morbidities. Encouraged to limit sodium intake and exercise for weight control. Avoid nephrotoxic drugs including NSAIDs. Monitor labs. Assessment & Plan (08/29/2020 10:28 PM CDT): Bp is stable/in acceptable range for any co-morbidities. Encouraged to limit sodium intake and exercise for weight control. Avoid nephrotoxic drugs including NSAIDs. Monitor labs. Assessment & Plan (12/03/2019 9:54 AM CDT): Avoid nephrotoxic drugs including NSAIDs. Monitor labs. Assessment & Plan (09/01/2019 10:28 PM CDT): Bp is stable/in acceptable range for any co-morbidities. Encouraged to limit sodium intake and exercise for weight control. Avoid nephrotoxic drugs including NSAIDs. Monitor labs. Continue benazepril, HCTZ Assessment & Plan (11/03/2018 10:41 PM CDT): Bp is stable/in acceptable range for any co-morbidities. Encouraged to limit sodium intake and exercise for weight control. Take medications as prescribed Type 2 diabetes mellitus with hyperlipidemia Assessment & Plan (11/28/2020 7:32 PM CDT): Stressed importance of continued A1c control to minimize the ferry terminal agent effects of diabetes. Bring accuchecks to office when instructed to do so. Check A1c about every 3-6 months. Take medication as prescribed. Get annual eye exam. Encouraged ALISSA/Statin if able to tolerate. Encouraged weight control and encouraged diabetic diet and exercise. Encouraged patient to follow fat/low chol diet like the Mediterranean diet. Increase good fats in the diet. Increase exercise. Monitor labs as needed. Continue statin Assessment & Plan (08/29/2020 10:23 PM CDT): Encouraged patient to follow fat/low chol diet like the Mediterranean diet. Increase good fats in the diet. Increase exercise. Monitor labs as needed. Continue statin Assessment & Plan (12/03/2019 9:54 AM CDT): Encouraged patient to follow fat/low chol diet like the Mediterranean diet. Increase good fats in the diet. Increase exercise. Monitor labs as needed. Continue statin Assessment & Plan (09/01/2019 10:28 PM CDT): Encouraged patient to continue low fat/low chol diet. Continue exercise. Increase good fats in the diet. Monitor labs as needed. Continue statin Assessment & Plan (11/03/2018 10:44 PM CDT): This is a significant, separately identifiable problem that was evaluated and managed on the same day as the wellness exam Stressed importance of continued A1c control to minimize the ferry terminal agent effects of diabetes. Bring accuchecks to office when instructed to do so. Check A1c about every 3-6 months. Take medication as prescribed. Get annual eye exam. Encouraged ALISSA/Statin if able to tolerate. Encouraged weight control and encouraged diabetic diet and exercise. Pt has been non-compliant with her medication. Encouraged to take as directed to decrease ferry terminal agent sequela. Encouraged patient to continue low fat/low chol diet. Continue exercise. Increase good fats in the diet. Monitor labs as needed. 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 Bring accuchecks to office when instructed to do so. Check A1c about every 3-6 months. Take medication as prescribed. Get annual eye exam. Encouraged ALISSA/Statin if able to tolerate. Encouraged weight control and encouraged diabetic diet and exercise. Continue metformin as well controlled. Assessment & Plan (08/29/2020 10:23 PM CDT): Control bp, DM and monitor kidney function Assessment & Plan (12/03/2019 9:53 AM CDT): Stressed importance of continued A1c control to minimize the snf effects of diabetes. Bring accuchecks to office when instructed to do so. Check A1c about every 3-6 months. Take medication as prescribed. Get annual eye exam. Encouraged ALISSA/Statin if able to tolerate. Encouraged weight control and encouraged diabetic diet and exercise. Well controlled. Continue metformin. Avoid nephrotoxic drugs including NSAIDs. Monitor labs. Assessment & Plan (09/01/2019 10:27 PM CDT): Bp is stable/in acceptable range for any co-morbidities. Encouraged to limit sodium intake and exercise for weight control. Avoid nephrotoxic drugs including NSAIDs. Monitor labs. Continue to manage Dm tightly Assessment & Plan (11/03/2018 10:41 PM CDT): Bp is stable/in acceptable range for any co-morbidities. Encouraged to limit sodium intake and exercise for weight control. Stressed importance of continued A1c control to minimize the ferry terminal agent effects of diabetes. Bring accuchecks to office when instructed to do so. Check A1c about every 3-6 months. Take medication as prescribed. Get annual eye exam. Encouraged ALISSA/Statin if able to tolerate. Encouraged weight control and encouraged diabetic diet and exercise. Avoid nephrotoxic drugs including NSAIDs. Monitor labs. History of colon polyps 10/30/2018 Overview (10/30/2018): Dr Padilla 2013. Due to repeat in approx 2018 Assessment & Plan (11/28/2020 7:33 PM CDT): Patient with history of polyps. Last colonoscopy in 2013. Was encouraged to repeat in 5 years but she has declined at this point due to her age. She understands she can call any time to get repeated if desires. She verbalizes the risks of not screening but also verbalizes based on her age at some point screening will things out. She is happy with her choice. Assessment & Plan (08/29/2020 10:26 PM CDT): Refuses repeat colonoscopy. Will still request pathology Assessment & Plan (09/01/2019 10:28 PM CDT): Due to repeat Colonoscopy in 2018 but pt is still declining. Assessment & Plan (11/03/2018 10:45 PM CDT): This is a significant, separately identifiable problem that was evaluated and managed on the same day as the wellness exam Past due for followup with her colonoscopy for her polyp history. Encouraged pt to call Dr. Padilla and set up followup colonoscopy. Will send [facility] referral. Seizure disorder 10/30/2018 Overview (10/30/2018): Dr. Crespo manages Assessment & Plan (11/28/2020 7:34 PM CDT): Dr. Vaughn manages. Stable with Dilantin Assessment & Plan (08/29/2020 10:29 PM CDT): Dr. Crespo manages. No history of recent seizures Assessment & Plan (09/01/2019 10:32 PM CDT): Managed by Dr. Crespo. No recent seizures. Check dilantin level since drawing labs. Unsure when last one was. Assessment & Plan (11/03/2018 10:40 PM CDT): No recent seizures. Dr. Mueller manages. History of hysterectomy 10/30/2018 Mild intermittent asthma without complication Assessment & Plan (11/28/2020 7:34 PM CDT): Stable. Uses albuterol p.r.n.. Assessment & Plan (08/29/2020 10:29 PM CDT): Stable with Flovent and Albuterol Assessment & Plan (12/03/2019 9:52 AM CDT): Has been stable. Continue current regimen Assessment & Plan (09/01/2019 10:26 PM CDT): Stable with Flovent and prn albuterol. Allergies are well controlled. Assessment & Plan (11/03/2018 10:40 PM CDT): Stable with Albuterol prn. Manage allergies. Other fatigue 10/30/2018 Assessment & Plan (09/01/2019 10:29 PM CDT): Probably multifactorial. Check labs and followup to re-evaluate Assessment & Plan (11/03/2018 10:42 PM CDT): Probably multifactorial. Check labs and followup to re-evaluate Resolved Problems Problem Noted Date Diagnosed Date Resolved Date BMI 25.0-25.9,adult 08/21/2020 11/27/19 Assessment & Plan (08/21/2020 7:46 AM CDT): Weight/BMI is in healthy range. Continue healthy lifestyle to maintain. Annual physical exam 12/03/2019 Assessment & Plan (08/29/2020 10:29 PM CDT): Encouraged healthy lifestyle, good nutrition and exercise. Encouraged Calcium and Vitamin D and weight bearing exercise for bone health. Reviewed immunizations Reviewed age appropirate screenings. Assessment & Plan (12/03/2019 9:54 AM CDT): Encouraged healthy lifestyle, good nutrition and exercise. Encouraged Calcium and Vitamin D and weight bearing exercise for bone health. Reviewed immunizations Reviewed age appropirate screenings. Needs flu shot 12/03/2019 06/02/2020 Assessment & Plan (12/03/2019 9:54 AM CDT): Updated in office today Need for 23-polyvalent pneum ococcal polysaccharide vaccine 12/03/2019 12/03/2019 BMI 24.0-24.9, adult 10/09/2019 020 Assessment & Plan (10/09/2019 3:24 PM CDT): Continue healthy lifestyle to continue healthy weight Pneumonia due to infectious organism 10/09/2019 06/02/2020 Assessment & Plan (12/03/2019 9:51 AM CDT): Resolved from the September. Breathing she feels is back to baseline. Will repeat CXR to confirm resolution Assessment & Plan (10/09/2019 9:27 PM CDT): Patient has completed steroids and antibiotics. Still using the albuterol a few times a day but this is back to her baseline. She feels like she is breathing easy. Continue to monitor. Has followup in my office in November and will consider repeat CXR at that time. BMI 23.0-23.9, adult 08/27/2019 Assessment & Plan (12/03/2019 9:54 AM CDT): Weight/BMI is in healthy range. Continue healthy lifestyle to maintain. Assessment & Plan (08/27/2019 9:17 AM CDT): Continue healthy lifestyle to continue healthy weight Medicare annual wellness visit, subsequent 08/27/2019 10/09/2019 Assessment & Plan (09/01/2019 10:29 PM CDT): Encouraged healthy lifestyle, good nutrition and exercise. Encouraged Calcium and Vitamin D and weight bearing exercise for bone health. Reviewed immunizations. Reviewed age appropirate screenings. Medicare Wellness Documentation is completed within the chart Annual physical exam 11/03/2018 020 Assessment & Plan (11/03/2018 10:42 PM CDT): Encouraged healthy lifestyle, good nutrition and exercise. Encouraged Calcium and Vitamin D and weight bearing exercise for bone health. Reviewed immunizations Reviewed age appropirate screenings. 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 Continue healthy lifestyle to maintain. Assessment & Plan (10/30/2018 8:20 AM CDT): Weight/BMI is in healthy range. Continue healthy lifestyle to maintain. Need for vaccination with 13 -polyvalent pneumococcal conjugate vaccine 10/30/2018 0 Assessment & Plan (11/03/2018 10:42 PM CDT): Updated in office today Immunizations Immunization Administration Dates Next Due Influenza, Quadrivalent, Hig h Dose, Preservative Free, Intrr 11/26/2020,12/03/2019 Influenza, Trivalent, High D ose, Split, Preservative Free, Intramuscular 10/22/2018,11/06/2017,11/10/2016 Influenza, Trivalent, Preser vative Free, Intramuscular 12/24/2014 Influenza, Unspecified 10/13/2018,11/28/2012,04/2011 Pfizer SARS-CoV-2 Monovalent Vaccination (12+ Yrs) PURPLE 04/30/2020,04/02/2020 Pneumococcal Conjugate PCV 13 10/30/2018, 017 Pneumococcal Polysaccharide PPV23 08/21/2020 Social History Tobacco Use Types Packs/Day Years Used Date Smoking Tobacco: Never Smokeless Tobacco: Never Alcohol Use Standard Drinks/Week Comments Never 0 (1 standard drink = 0.6 oz pur e alcohol) AUDIT-C Answer Date Recorded Q1: How often do you have a drink containing alc ohol? Never 11/26/2020 Average Number of Drinks Not on file 021 Q3: How often do you have si x or more drinks on one occasion? 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 Gender Identity Not on file Sexual Orientation Not on file Occupation Industry Job Start Date Job End Date Retired Not on file Not on file Not on file Last Filed Vital Signs Vital Sign Reading Time Taken Comments Blood Pressure 120/80 11/26/2020 7:47 AM CDT Pulse 84 11/26/2020 7:47 AM CDT Temperature 37 C (98.6 F) 11/26/2020 7:47 AM CDT Respiratory Rate - - Oxygen Saturation 99% 11/26/2020 7:47 AM CDT Inhaled Oxygen Concentration - - Weight 64.8 kg (142 lb 14.4 oz) 11/26/2020 7:47 AM CDT Height 161.3 cm (5' 3.5) 11/26/2020 7:47 AM CDT Body Mass Index 24.92 11/26/2020 7:47 AM CDT Plan of Treatment Not on file Procedures Procedure Name Priority Date/Time Associated Diagnosis Comments DEXA AXIAL SKELETON BONE DENSITY 1 OR MORE SITES Schedule Routine, Read Routine (OP Routine) 10/27/2020 Menopause COMPREHENSIVE METABOLIC PANEL Routine 09/01/2020 9:34 AM CDT Hypertension associated with diabetes (HCC) HEMOGLOBIN A1C Routine 09/01/2020 9:34 AM CDT Hypertension associated with diabetes (HCC) LIPID PANEL Routine 09/01/2020 9:34 AM CDT HM DIABETES EYE EXAM Routine 04/10/2019 ALBUMIN CREATININE RATIO, URINE Routine 04/16/2018 7:50 AM CDT from Last 3 Months or Most Recently Relevant to Health Maintenance Results * (ABNORMAL) Dexa Axial Skeleton Bone Density 1 or 2 Site (10/27/2020) [facility] SCRIBED DXA T-SCORE -2.1 SCRIBED DXA Z-SCORE 2.1 Anatomical Region Laterality Modality Body N/A Radiographic Marjorie ging Ericka DUMONT IMG DXA PROCEDURES Edited Result - Final * (ABNORMAL) Hemoglobin A1c (09/01/2020 9:34 AM CDT) [facility] Hgb A1C 5.7(H) <5.7 % of total Hgb [facility] Blood specimen (specimen) 09/01/2020 9:34 AM CDT 09/01/2020 9:37 AM CDT Narrative [facility] - 09/02/2020 11:35 AM CDT FASTING:YES FASTING: YES us Ericka DUMONT LAB BLOOD ORDERABLES Final Result [facility] [address] [place] [address] * Lipid panel (09/01/2020 9:34 AM CDT) [facility] Cholesterol 190 <200 mg/dL [facility] HDL 99 > OR = 50 mg/dL [facility] Triglycerides 64 <150 mg/dL [facility] LDL 77 mg/dL (calc) [facility] Comment: Reference range: <100 Desirable range <100 mg/dL for primary prevention; <70 mg/dL for patients with CHD or diabetic patients with > or = 2 CHD risk factors. LDL-C is now calculated using the Magalie calculation, which is a validated novel method providing better accuracy than the Friedewald equation in the estimation of LDL-C. Lev GARZA et al. JEN. 2013;310(19): 0442-3557 (http://education.[facility]/faq/PRZ344) Chol/HDL ratio 1.9 <5.0 (calc) [facility] Non-HDL, (LDL+VLDL) 91 <130 mg/dL (calc) [facility] Comment: For patients with diabetes plus 1 major ASCVD risk factor, treating to a non-HDL-C goal of <100 mg/dL (LDL-C of <70 mg/dL) is considered a therapeutic option. 09/01/2020 9:34 AM CDT 09/01/2020 9:37 AM CDT Narrative [facility] - 09/02/2020 11:35 AM CDT FASTING:YES FASTING: YES Ericka DUMONT LAB BLOOD ORDERABLES Final Result [facility] [address] [place] [address] * (ABNORMAL) Comprehensive metabolic panel (09/01/2020 9:34 AM CDT) Pathologist [facility] Glucose 104(H) 65 - 99 mg/dL [facility] Comment: Fasting reference interval For someone without known diabetes, a glucose value between 100 and 125 mg/dL is consistent with prediabetes and should be confirmed with a follow-up test. BUN 28(H) 7 - 25 mg/dL [facility] Creatinine 1.12(H) 0.60 - 0.88 mg/dL [facility] Comment: For patients >49 years of age, the reference limit for Creatinine is approximately 13% higher for people identified as -[place]. eGFR NON-AFR. [place] 45(L) > OR = 60 mL/min/1. 73m2 [facility] EGFR 53(L) > OR = 60 mL/min/1. 73m2 [facility] BUN/creat ratio 25(H) 6 - 22 (calc) [facility] Sodium 144 135 - 146 mmol/L [facility] Potassium, pl 5.4(H) 3.5 - 5.3 mmol/L [facility] Chloride 109 98 - 110 mmol/L [facility] CO2 24 20 - 32 mmol/L [facility] Calcium 9.2 8.6 - 10.4 mg/dL [facility] Protein, sr 6.8 6.1 - 8.1 g/dL [facility] Albumin 4.5 3.6 - 5.1 g/dL [facility] [place] GLOBULIN 2.3 1.9 - 3.7 g/dL (calc) [facility] Alb/glob ratio 2.0 1.0 - 2.5 (calc) [facility] Bilirubin, total 0.4 0.2 - 1.2 mg/dL [facility] Alk phos 101 37 - 153 U/L [facility] AST 18 10 - 35 U/L [facility] ALT (SGPT) 16 6 - 29 U/L [facility] Blood specimen (specimen) 09/01/2020 9:34 AM CDT 09/01/2020 9:37 AM CDT Narrative [facility] - 09/02/2020 11:35 AM CDT FASTING:YES FASTING: YES Ericka DUMONT LAB BLOOD ORDERABLES Final Result [facility] [address] [address] * DIABETES EYE EXAM (04/10/2019) Historical Provider HEALTH MAINTENANCE Edited Result - Final * Microalbumin / creatinine ratio, urine, random (04/16/2018 7:50 AM CDT) CREATININE, RANDOM URINE 136 20 - 275 mg/dL [facility] HISTORICAL RESULTS MICROALBUMIN 3.3 See Note: mg/dL [facility] HISTORICAL RESULTS Comment: Reference Range: Reference Range Not established MICROALBUMIN/CREAT ININE RATIO, RANDOM URINE 24 <30 mcg/mg creat [facility] HISTORICAL RESULTS Comment: The ADA defines abnormalities in albumin excretion as follows: Category Result (mcg/mg creatinine) Normal < 30 Microalbuminuria 30-299 Clinical albuminuria > OR = 300 The ADA recommends that at least two of three specimens collected within a 3-6 month period be abnormal before considering a patient to be within a diagnostic category. 04/16/2018 7:50 AM CDT 04/17/2018 12:15 PM CDT Narrative [facility] HISTORICAL RESULTS - 04/17/2018 11:54 AM CDT 0; FASTING; 0; 0; 0; 0 FASTING:YES FASTING: YES PERFORMING LAB: [place], [facility] [address], [place] [address] Jay Pride D.O., MPH Historical Provider LAB URINE ORDERABLES Meghan quiñones Result [facility] HISTORICAL RESULTS from Last 3 Months or Most Recently Relevant to Health Maintenance Insurance MEDICARE HMO
--- OUTSIDE RECORDS SUMMARY | 2024-07-02 12:08 | XMS_ITS | Clinical Summary ---
Author Organization [facility] [address] [facility] Address [address] [place] [address] Care Team Providers Care Group Fitness Manager Name Role Phone Unavailable Primary Care Provider [...] Inhaler 1 08/22/19 21 Active calcium carbonate (OS-BRATN) 1,500 mg (600 mg of elemental calcium) [...] regimen Assessment & Plan (02/03/2019 3:25 PM QUARTER LINING SMOOTHER): Sxs most consistent with allergies vs common [...] of continued A1c control to minimize the group home effects of diabetes. Bring accuchecks to office [...] of continued A1c control to minimize the day treatment clinician/art therapist effects of diabetes. Bring accuchecks to office [...] of continued A1c control to minimize the group home effects of diabetes. Bring accuchecks to office when instructed to do so. Check A1c about every 3-6 months. Take medication as prescribed. Get annual eye exam. Encouraged ALISSA/Statin if able to tolerate. Encouraged weight control and encouraged diabetic diet and exercise. Continue metformin Assessment & Plan (11/03/2018 10:41 PM CDT): Stressed importance of continued A1c control to minimize the group home effects of diabetes. Bring accuchecks to office [...] of continued A1c control to minimize the day treatment clinician/art therapist effects of diabetes. Bring accuchecks to office [...] of continued A1c control to minimize the day treatment clinician/art therapist effects of diabetes. Bring accuchecks to office when instructed to do so. Check A1c about every 3-6 months. Take medication as prescribed. Get annual eye exam. Encouraged ALISSA/Statin if able to tolerate. Encouraged weight control and encouraged diabetic diet and exercise. Pt has been non-compliant with her medication. Encouraged to take as directed to decrease day treatment clinician/art therapist sequela. Encouraged patient to continue low fat/low chol diet. Continue exercise. Increase good fats in the diet. Monitor labs as needed. 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 Bring accuchecks to office [...] of continued A1c control to minimize the group home effects of diabetes. Bring accuchecks to office [...] of continued A1c control to minimize the day treatment clinician/art therapist effects of diabetes. Bring accuchecks to office [...] 020 Assessment & Plan (01/28/2019 4:48 PM QUARTER LINING SMOOTHER): Weight/BMI is in healthy range. Continue healthy [...] 13 10/30/2018, 017 Pneumococcal Polysaccharide PPV23 08/21/2020 Surgical History Surgery Date Site/Laterality Comments HYSTERECTOMY CHOLECYSTECTOMY TONSILLECTOMY HERNIA REPAIR naval COLECTOMY CATARACT EXTRACTION Family History Medical History Relation Name Comments No Known Problems Father Alzheimer's disease Mother Relation Name Status Comments Father Mother Social History Tobacco Use Types Packs/Day Years [...] on file Legal Sex Female 9:21 PM QUARTER LINING SMOOTHER Gender Identity Not on file Sexual Orientation Not on file Occupation Industry Job Start Date Job End Date Retired Not on file Not on file Not on file Obstetrics History Last Filed Vital Signs Vital Sign Reading [...] 11/26/2020 7:47 AM CDT Plan of Treatment Health Maintenance Due Date Last Done Comments DTaP/Tdap/Td Vaccine (1 - Tdap) 1946 Hepatitis B Screening 05/30/1953 Zoster Vaccine (1 of 2) 05/30/1987 Albumin Creatinine Ratio, Urine 04/17/2019 9 Foot Exam 10/31/2019 10/30/2018 Dilated Eye Exam 04/09/2020 04/10/2019 Hemoglobin A1C 03/04/2021 09/01/2020, 11/07, 04/09/2019, Additional history exists Lipid Panel 09/01/2021 09/01/2020, 11/07, 04/09/2019, Additional history exists eGFR 09/01/2021 09/01/2020, 11/07, 04/09/2019 Depression Screening 11/26/2021 11/26/2020, 08/21/2020, 12/03/2019, Additional history exists Fall Risk Assessment 11/26/2021 11/26/2020, 08/21/2020, 12/03/2019, Additional history exists Well Visit 65+ 11/26/2021 11/26/2020, 08/06, 12/03/2019, Additional history exists Covid-19 Vaccine (3 2023-2 5 season) 2023 04/30/2020, 04/02/2020 Influenza Vaccine (Season Ended) 2024 11/26/2020, 12/03/2019, 10/22/2018, Additional history exists Pneumococcal vaccine 65+ Completed 021, 10/30/2018, 11/10/2016 Osteoporosis Screening-Bone Density Scan Discontinued 10/27/2020 Procedures Procedure Name Priority Date/Time Associated Diagnosis Comments DEXA AXIAL SKELETON BONE DENSITY 1 OR MORE SITES Schedule Routine, Read Routine (OP Routine) 10/27/2020 Menopause COMPREHENSIVE METABOLIC PANEL Routine 09/01/2020 9:34 AM CDT Hypertension associated with diabetes (HCC) HEMOGLOBIN A1C Routine 09/01/2020 9:34 AM CDT Hypertension associated with diabetes (HCC) LIPID PANEL Routine 09/01/2020 9:34 AM CDT DIABETES EYE EXAM Routine 04/10/2019 ALBUMIN CREATININE RATIO, URINE Routine 04/16/2018 7:50 AM CDT from Last 3 Months or Most Recently Relevant to Health Maintenance Results * (ABNORMAL) Dexa Axial Skeleton Bone Density 1 or 2 Site (10/27/2020) [facility] SCRIBED DXA T-SCORE -2.1 SCRIBED DXA Z-SCORE 2.1 Anatomical Region Laterality Modality Body N/A Radiographic Marjorie ging us Ericka DUMONT IMG DXA PROCEDURES Edited Result - Final * (ABNORMAL) Hemoglobin A1c (09/01/2020 9:34 AM CDT) [facility] Hgb A1C 5.7(H) <5.7 % of total [facility]gb [facility] Blood specimen (specimen) 09/01/2020 9:34 AM CDT 09/01/2020 9:37 AM CDT Narrative [facility] - 09/02/2020 11:35 AM CDT FASTING:YES FASTING: YES Ericka DUMONT LAB BLOOD ORDERABLES Final Result [facility] [address] [place] [address] * Lipid panel (09/01/2020 9:34 AM CDT) [facility] Cholesterol 190 <200 mg/dL [facility] [...] LDL-C. Lev GARZA et al. JEN. 2013;310(19): 8950-0184 (http://education.[employer].Friendly Score/faq/FLU059) Chol/HDL ratio 1.9 <5.0 (calc) [facility] DUMONT LAB BLOOD ORDERABLES Final Result [facility] [address] [place] [address] * (ABNORMAL) Comprehensive metabolic panel (09/01/2020 9:34 AM CDT) Pathologist [facility] Glucose 104(H) 65 - 99 mg/dL [facility] [...] approximately 13% higher for people identified as -Salvadorean. eGFR NON-AFR. [place] 45(L) > OR = 60 mL/min/1. 73m2 [...] DUMONT LAB BLOOD ORDERABLES Final Result [facility] [address] [address] * DIABETES EYE EXAM (04/10/2019) Historical Provider HEALTH MAINTENANCE Edited Result - Final * Microalbumin / creatinine ratio, urine, random (04/16/2018 7:50 AM CDT) CREATININE, RANDOM URINE 136 20 - 275 mg/dL [facility] HISTORICAL RESULTS MICROALBUMIN 3.3 See Note: mg/dL [facility] HISTORICAL RESULTS Comment: Reference Range: Reference Range Not established MICROALBUMIN/CREAT ININE RATIO, RANDOM URINE 24 <30 mcg/mg creat [facility] HISTORICAL RESULTS Comment: The ADA defines abnormalities [...] AM CDT 04/17/2018 12:15 PM CDT Narrative [facility] HISTORICAL RESULTS - 04/17/2018 11:54 AM CDT 0; FASTING; 0; 0; 0; 0 FASTING:YES FASTING: YES PERFORMING LAB: [place], [facility] [address] [place] [address] Jay Pride D.O., MPH Historical Provider LAB URINE ORDERABLES Meghan quiñones Result [facility] HISTORICAL RESULTS from Last 3 Months or Most Recently Relevant to Health Maintenance Insurance [employer] MEDIC[employer] HMO
--- OUTSIDE RECORDS SUMMARY | 2024-07-02 12:08 | XMS_ITS | CONTINUITY OF CARE DOCUMENT ---
Author Name humberto paul Address Unknown Organization [facility] Address [address] [place] [address] Phone [phone] Care Team Providers Care Records Officer Name Role Phone Mikhail MCFADDEN, Rosemary Unavailable SARA MURO MD Unavailable [phone] SARA MURO MD Unavailable [phone] PROBLEMS Condition Status Date Provider Notes Fatigue [...] In-person encounter Office Visit Rosemary Elizondo MD [facility] - In-person encounter Office Visit Rosemary Elizondo MD [facility] Cardiology examination - In-person encounter Office Visit Rosemary Elizondo MD [facility] CKD stage 3Diabetes mellitus, type 2Hx of SeizureEdema, anklesShortness of breath VITAL SIGNS Date Observation Value Provider Body Mass Index (Ratio) 20.18 kg/m2 Lawson Elizondo MD blood pressure, diastolic 75 mm[Hg] Kenneth landerosn Srivastava blood pressure, systolic 135 mm[Hg] Karyn torres Srivastava oxygen saturation, oximetry 95 % [facility] pulse rate 87 /min [facility] Srivastava blood pressure, cuff size regular Kenneth pia Srivastava weight E&M 117.6 [lb_av] [facility] Srivastava height E&M 64 [in_i] [facility] Srivastava Body Mass Index (Ratio) 21.83 kg/m2 Lawson Elizondo MD blood pressure, diastolic 66 mm[Hg] Li nkLogic blood pressure, systolic 134 mm[Hg] Arpita kLogic blood pressure, cuff size regular Ta bitamelia Fernando blood pressure, diastolic 66 mm[Hg] Ta bitha Fernando blood pressure, systolic 134 mm[Hg] [facility] [place] oxygen saturation, oximetry 99 % [facility] respiratory rate E&M 12 /min Cheri [place] pulse rate 89 /min Cheri [place] weight E&M 127.2 [lb_av] Cheri [place] height E&M 64 [in_i] Cheri [place] Body Mass Index (Ratio) 24.37 kg/m2 Lawson Elizondo MD blood pressure, diastolic 62 mm[Hg] Li nkLogjuana blood pressure, systolic 116 mm[Hg] Arpita kLogic blood pressure, cuff size regular Ca therine Tiger blood pressure, diastolic 62 mm[Hg] Ca therine Tiger blood pressure, systolic 116 mm[Hg] Cat herine Tiger pulse rate 90 /min Lucina Tiger oxygen saturation, oximetry 96 % Lucina Fitz respiratory rate E&M 16 /min Sherry ne Tiger weight E&M 142 [lb_av] Lucina Fitz height E&M 64 [in_i] Lucina Tiger ALLERGIES No Known Drug Allergies HISTORY OF [...] 110 mcg/actuation HFA aerosol inhaler active Lucina Tiger phenytoin sodium extended 100 mg capsule completed TAKE 1 CAPSULE BY MOUTH EVERY MORNING, AT NOON, AND TAKE 2 CAPSULES AT BEDTIME - 06/20 Julius Garcia loratadine 10 mg tablet completed TAKE 1 TABLET BY MOUTH EVERY DAY - 06/20 Julius Garcia fluticasone propionate 50 mcg/actuation spray,suspension active Lucina Tiger albuterol sulfate 90 mcg/actuation HFA aerosol inhaler [...] Payer name Policy type / Coverage type Ramah Vesta Medical ID [employer] [facility] [id number] 3 ADVANCE DIRECTIVES Name Date DISCUSSED - NO DECISION MADE TREATMENT PLAN Date Name Performer [id number],S, Julius Wyattkeron i [id number],S, Julius Ewelina i [id number],S, Julius Ewelina i [id number],S, Julius Ewelina i [id number],S, Julius Ewelina i Cardiology Rosemary Elizondo MD [...] Provider Procedure Notes S tatus EKG Rosemary Elizodno MD completed EKG Rosemary Elizondo MD completed
[2024-07-02 12:30] VITALS: BP 167/79; PULSE 92; RESP 19; O2SAT 98
--- NOTE | 2024-07-02 12:31 | ED.GENADULT ---
HPI - General Adult General Chief complaint: Shortness of Breath/Dyspnea Stated complaint: I have a breathing problem Time Seen by Provider: 07/02/24 12:02 History of Present Illness HPI narrative: 89-year-old female with history of asthma but does use breathing treatments at home presents to the emergency department complaining of worsening shortness of breath over the past few days. Patient states over the last few days she has had some increased shortness of breath but states that she has been using her breathing treatments and she does not feel they are helping. At time of evaluation patient denies any current shortness of breath and states that she feels fine. Patient has a pulse ox of 99% on room air at time of evaluation. Patient reports does have a prior history of pneumonia and was worried that this was going to develop into pneumonia. Patient denies any associated chest pain. Patient denies any fever or other symptoms of illness. Related Data Home Medications ?Medication ?Instructions ?Recorded ?Confirmed ?Last Taken ?Type inhalational spacing device 09/27/19 04/23/24 Unknown History (Urbano Patel [facility] spacer) atorvastatin 40 mg tablet (Lipitor) 40 mg PO DAILY 07/14/23 04/23/24 Unknown History losartan 100 1 tablet PO DAILY 04/03/24 04/23/24 Unknown History mg-hydrochlorothiazide 25 mg tablet meclizine 25 mg tablet 25 mg PO QID PRN dizziness 04/03/24 04/23/24 Unknown History budesonide-formoterol HFA 80 inhalation 06/02/24 Unknown History mcg-4.5 mcg/actuation aerosol inhaler (Breyna) Allergies Allergy/AdvReac Type Severity Reaction Status Date / Time No Known Allergies Allergy Verified 07/02/24 10:49 Review of Systems Review of Systems: All systems reviewed & are unremarkable except as noted in HPI and below PMFSH Past Medical History Medical History 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 She has not had a seizure in 15 years. 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 She does not feel she would want have cardiopulmonary resuscitation if her heart were to stop. She would not want to be on a ventilator even for short term. Smoking status: Never smoker Alcohol intake: never Substance use: never Do You Feel Safe in your Home?: Yes Lack of Transportation: No Lack of Food: Never True Current Housing: I Have Housing Concerned About Future Housing: No Difficulty Paying Gas/Electric Bills: No Difficulty Paying for Meds: No Currently Unemployed: No Education: Grade School Difficulty w/ Childcare or Family Care: No Additional living arrangements comments: The patient lives in her own home. Her adult son lives with her. She has 2 daughters and 1 son. She is independent in her activities of daily living and does her own lawn and house care. Additional occupation/education comments: Homemaker Gender identity (if verbalized by the patient): Female Spiritual care concerns: No Exam Narrative: APPEARANCE: Well appearing, no pain, no distress, well-nourished. HEAD: normocephalic, atraumatic. EYES: PERRLA/EOMI, conjunctivae clear. NOSE: Normal no drainage EARS:TMS clear with good light reflex. THROAT: Pharynx clear, no exudate. NECK: Supple. No adenopathy, no masses. RESPIRATORY: Airway patent, respirations nonlabored. Decreased lung sounds bilaterally CARDIOVASCULAR: Regular rate and rhythm without murmurs rubs or gallops. ABDOMINAL: Soft, nontender, nondistended, normal bowel sounds MUSCULOSKELETAL: Moves all extremities. Strength/ROM intact, No edema, No calf tenderness. NEURO: Alert. Cranial nerves II through XII intact. Good gait. Good coordination SKIN: Warm, dry. Normal Color Course Vital Signs Vital signs: Vital Signs Temperature 97.6 F 07/02/24 10:47 Pulse Rate 108 H 07/02/24 10:47 Respiratory Rate 18 07/02/24 10:47 Blood Pressure 179/72 H 07/02/24 10:47 Pulse Oximetry 95 07/02/24 10:47 Oxygen Delivery Room Air 07/02/24 10:47 Temperature 97.6 F 07/02/24 10:47 Pulse Rate 92 07/02/24 12:30 Respiratory Rate 19 07/02/24 12:30 Blood Pressure 167/79 H 07/02/24 12:30 Pulse Oximetry 98 07/02/24 12:30 Oxygen Delivery Room Air 07/02/24 10:47 Medical Decision Making MDM Narrative Medical decision making narrative: 89-year-old female presents to the emergency department for evaluation for cough and increased shortness of breath. Patient's x-ray showed no acute cardiopulmonary abnormality. Patient was negative for influenza RSV and COVID. Patient did feel improved with a breathing treatment. Suspect possible asthma exacerbation versus allergic symptoms. Patient was updated the results of her workup. Patient will be discharged to home with close outpatient follow-up. Differential Diagnosis Differential Diagnosis: COVID, RSV, influenza, pneumonia, asthma exacerbation, seasonal allergies Vital Signs Vital Signs: Vital Signs Temperature 97.6 F 07/02/24 10:47 Pulse Rate 108 H 07/02/24 10:47 Respiratory Rate 18 07/02/24 10:47 Blood Pressure 179/72 H 07/02/24 10:47 Pulse Oximetry 95 07/02/24 10:47 Oxygen Delivery Room Air 07/02/24 10:47 Temperature 97.6 F 07/02/24 10:47 Pulse Rate 92 07/02/24 12:30 Respiratory Rate 19 07/02/24 12:30 Blood Pressure 167/79 H 07/02/24 12:30 Pulse Oximetry 98 07/02/24 12:30 Oxygen Delivery Room Air 07/02/24 10:47 Lab Data Lab results reviewed: Yes I reviewed the patient's lab results. Labs: Lab Results 07/02/24 Range/Units 12:11 Influenza A (RT-PCR) Negative (Negative) Influenza B (RT-PCR) Negative (Negative) RSV (RT-PCR) Negative (Negative) SARS-CoV-2 RNA (RT-PCR) Negative (Negative) Imaging Data Radiologist's impression: Impressions Chest X-Ray 07/02/24 12:47 Impression: Clear lungs. Probable COPD. Discharge Plan Discharge Clinical Impression: Dyspnea, Cough Patient Disposition: Home Condition: Stable Instructions: Antibiotic Form, Asthma (ED) Additional Instructions: You were negative for COVID, RSV and influenza. Your chest x-ray showed no evidence of acute pneumonia. Continue your breathing treatments as directed. Have close follow-up with your primary care physician. If you have any worsening symptoms then please call or return to the emergency department. Patient Language: Latvian Prescriptions: No Action budesonide-formoterol [Breyna] 80-4.5 mcg/actuation HFA aerosol inhaler INHALATION cephalexin 500 mg capsule 500 mg PO Q8H Qty: 21 0RF mupirocin [Centany] 2 % ointment 1 applic topical BID Qty: 22 0RF Rx Instructions: apply to left upper arm 2 times daily prednisone 20 mg tablet 20 mg PO BID Qty: 10 0RF Rx Instructions: start tomorrow take with food losartan-hydrochlorothiazide 100-25 mg tablet 1 tablet PO DAILY meclizine 25 mg tablet 25 mg PO QID PRN (Reason: dizziness) atorvastatin [Lipitor] 40 mg tablet 40 mg PO DAILY (DME) Urbano Patel [facility] Spacer MISCELLANEOUS albuterol sulfate 90 mcg/actuation HFA aerosol inhaler 2 puff inhalation Q4-6H PRN (Reason: shortness of breath or wheezing) 30 Days Qty: 8.5 3RF Dulera 100-5 mcg/actuation HFA aerosol inhaler 2 puff inhalation Q12H Qty: 13 11RF Rx Instructions: rinse and spit Follow-up/Referrals: Jimenez Tavarez MD [Primary Care Provider] -
[2024-07-02 13:09] LABS: Influenza A QL RT-PCR Negative (Negative); Influenza B QL RT-PCR Negative (Negative); RSV RNA, RT-PCR Negative (Negative); SARS-CoV-2 RNA PCR Negative (Negative)
== END 2024-07-02 13:54 | disposition home or self-care (01) ==
PROVIDERS: Emergency Provider Emergency Medicine; PCP Emergency Medicine
DX: R06.00 Dyspnea, unspecified (principal); R05.9 Cough, unspecified; J45.909 Unspecified asthma, uncomplicated; Z20.822 Contact with and (suspected) exposure to COVID-19; I10 Essential (primary) hypertension; E78.5 Hyperlipidemia, unspecified; E11.9 Type 2 diabetes mellitus without complications; N39.3 Stress incontinence (female) (male); K21.9 Gastro-esophageal reflux disease without esophagitis; Z66 Do not resuscitate; Z87.442 Personal history of urinary calculi; Z96.1 Presence of intraocular lens; Z98.42 Cataract extraction status, left eye; Z98.41 Cataract extraction status, right eye; Z90.710 Acquired absence of both cervix and uterus; Z90.49 Acquired absence of other specified parts of digestive tract; Z79.899 Other long term (current) drug therapy
CPT/HCPCS: 71046; 87637; 99283

== ENCOUNTER 2024-07-08 18:06 | Emergency (ER) | payer MEDICARE, SELFPAY ==
--- NOTE | 2024-07-08 18:12 | ED.CHESTPAIN ---
HPI - Chest Pain General Chief Complaint: Chest Pain Stated Complaint: Chest Wall Pain Time Seen by Provider: 07/08/24 18:25 Source: patient Mode of arrival: ambulatory Limitations: no limitations History of Present Illness HPI narrative: Norma is an 89-year-old female patient presenting to the clinic today with complaints of left-sided chest discomfort. She reports that this twinge comes and goes has had pain in the left upper chest that lasts for only a few seconds-had this once yesterday and twice today. Denies any chest pain or shortness of breath at this time. Related Data Home Medications ?Medication ?Instructions ?Recorded ?Confirmed ?Last Taken ?Type inhalational spacing device 09/27/19 04/23/24 Unknown [facility] spacer) atorvastatin 40 mg tablet (Lipitor) 40 mg PO DAILY 07/14/23 04/23/24 Unknown History losartan 100 1 tablet PO DAILY 04/03/24 04/23/24 Unknown History mg-hydrochlorothiazide 25 mg tablet meclizine 25 mg tablet 25 mg PO QID PRN dizziness 04/03/24 04/23/24 Unknown History budesonide-formoterol HFA 80 inhalation 06/02/24 Unknown History mcg-4.5 mcg/actuation aerosol inhaler (Breyna) Allergies Allergy/AdvReac Type Severity Reaction Status Date / Time No Known Allergies Allergy Verified 07/08/24 18:16 Review of Systems Review of Systems: Pertinent positives per HPI. Patient denies any fever, chills, rash, headache, visual changes, dizziness, cough, runny nose, sore throat, shortness of breath, palpitations, nausea, vomiting, diarrhea, constipation, abdominal pain, or any urinary issues. [facility], [facility] Past Medical History Medical History 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 She has not had a seizure in 15 years. 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 She does not feel she would want have cardiopulmonary resuscitation if her heart were to stop. She would not want to be on a ventilator even for short term. Smoking status: Never smoker Alcohol intake: never Substance use: never Do You Feel Safe in your Home?: Yes Lack of Transportation: No Lack of Food: Never True Current Housing: I Have Housing Concerned About Future Housing: No Difficulty Paying Gas/Electric Bills: No Difficulty Paying for Meds: No Currently Unemployed: No Education: Grade School Difficulty w/ Childcare or Family Care: No Additional living arrangements comments: The patient lives in her own home. Her adult son lives with her. She has 2 daughters and 1 son. She is independent in her activities of daily living and does her own lawn and house care. Additional occupation/education comments: Homemaker Gender identity (if verbalized by the patient): Female Spiritual care concerns: No Comments At the time of my signature, I reviewed and agree with the nursing past medical, surgical, social, and family history. There is no relevant family history pertinent to the patient complaint. Exam Narrative: General: Well-developed, well nourished, in no apparent distress Head: Normocephalic, atraumatic. Chest wall: Even rise and fall of the chest wall, no swelling bruising noted, pain is not reproducible with palpation Cardio: Regular rate and rhythm, s1 and s2 normal, no murmur appreciated. Resp: Clear to auscultation bilaterally, no rhonchi, rales, wheezing or rubs. Extremities: No deformity, no edema, no cyanosis, capillary refill less than 2 seconds, peripheral pulses palpable and strong. Integumentary: [place], warm, and dry, intact without lesion, no rashes. Course Course Emergency Course: Portions of this record may have been created with voice recognition software. Level of Care: Express Care Visit Vital Signs Vital signs: Vital Signs Temperature 36.7 C 07/08/24 18:15 Pulse Rate 95 07/08/24 18:15 Respiratory Rate 16 07/08/24 18:15 Blood Pressure 163/71 H 07/08/24 18:15 Pulse Oximetry 95 07/08/24 18:15 Oxygen Delivery Room Air 07/08/24 18:15 Temperature 36.7 C 07/08/24 18:15 Pulse Rate 95 07/08/24 18:15 Respiratory Rate 16 07/08/24 18:15 Blood Pressure 163/71 H 07/08/24 18:15 Pulse Oximetry 95 07/08/24 18:15 Oxygen Delivery Room Air 07/08/24 18:15 Vital signs reviewed MDM - Chest Pain MDM Narrative Medical decision making narrative: At the time of visit patient is resting comfortably on the exam table. Patient appears to be nontoxic. EKG: EKG shows normal sinus rhythm with possible left atrial enlargement and right bundle branch block. Heart rate was 90. No change from last EKG Plan: I suspect patient has chest wall pain . She denies having any chest pain or shortness of breath currently. Recommend going to the emergency room if symptoms return. Supportive measures were discussed with the patient and they voiced understanding discharge instructions and agrees to treatment plan. Return precautions reviewed Differential Diagnosis Differential diagnosis: Likely fracture of rib, pneumothorax, stable angina, unstable angina pectoris, atypical chest pain, st elevation myocardial infarction, costochondritis and chest pain ECG Data EKG #1: Attestation: I personally reviewed and interpreted this ECG as follows: ECG completion date: 07/08/24 ECG completion time: 18:53 Prior ECG tracings: available for review Interpretation: EKG shows sinus rhythm with possible left atrial enlargement right bundle branch block. Heart rates 90 beats per minute. No change from previous EKG. ME interval is 163 milliseconds, QRS durations 142 milliseconds, QT-QTC is 351-398 milliseconds, P-R-T axis is 83 85 69 Discharge Plan Discharge Clinical Impression: Acute chest wall pain Patient Disposition: Home Condition: Stable Instructions: Antibiotic Form, Chest Wall Pain (ED) Additional Instructions: EKG shows sinus rhythm a right bundle-branch block and a possible left atrial enlargement.-no changes from last EKG Follow-up with PCP if symptoms persist Go to the emergency room if symptoms worsen-shortness of breath, chest pain, lethargy, weakness, confusion, or any other concerning symptoms Patient Language: Bulgarian Prescriptions: No Action budesonide-formoterol [Breyna] 80-4.5 mcg/actuation HFA aerosol inhaler INHALATION cephalexin 500 mg capsule 500 mg PO Q8H Qty: 21 0RF mupirocin [Centany] 2 % ointment 1 applic topical BID Qty: 22 0RF Rx Instructions: apply to left upper arm 2 times daily prednisone 20 mg tablet 20 mg PO BID Qty: 10 0RF Rx Instructions: start tomorrow take with food losartan-hydrochlorothiazide 100-25 mg tablet 1 tablet PO DAILY meclizine 25 mg tablet 25 mg PO QID PRN (Reason: dizziness) atorvastatin [Lipitor] 40 mg tablet 40 mg PO DAILY (DME) Urbano Patel [facility] Spacer MISCELLANEOUS Dulera 100-5 mcg/actuation HFA aerosol inhaler 2 puff inhalation Q12H Qty: 13 11RF Rx Instructions: rinse and spit albuterol sulfate 90 mcg/actuation HFA aerosol inhaler See Rx Instructions .ROUTE .COMPLEX Qty: 9 3RF Dose Instruction: INHALE 2 PUFFS BY MOUTH EVERY 4 TO 6 HOURS NEEDED FOR SHORTNESS OF BREATH FOR WHEEZING Rx Instructions: INHALE 2 PUFFS BY MOUTH EVERY 4 TO 6 HOURS NEEDED FOR SHORTNESS OF BREATH FOR WHEEZING Follow-up/Referrals: Jimenez Tavarez MD [Primary Care Provider] - Time of Disposition: 18:51 Quality NIHSS Nursing Documentation ED NIHSS nursing documentation: reviewed/agree
[2024-07-08 18:15] VITALS: BP 163/71; PULSE 95; RESP 16; TEMP 36.7; O2SAT 95
== END 2024-07-08 18:55 | disposition home or self-care (01) ==
PROVIDERS: Emergency Provider Nurse Practitioner Family; PCP Emergency Medicine
DX: R07.89 Other chest pain (principal); I10 Essential (primary) hypertension; E11.9 Type 2 diabetes mellitus without complications; E78.5 Hyperlipidemia, unspecified; K21.9 Gastro-esophageal reflux disease without esophagitis; J45.909 Unspecified asthma, uncomplicated; Z96.1 Presence of intraocular lens; Z98.42 Cataract extraction status, left eye; Z98.41 Cataract extraction status, right eye
CPT/HCPCS: 99212; G0463

== ENCOUNTER 2024-07-09 09:45 | Emergency (ER) | payer MEDICARE, SELFPAY ==
--- NOTE | ~2024-07-09 | XR_ITS ---
Clinical Indication: Chest pain PA and lateral views of the chest: Comparison: 07/02/2024 Findings: The lungs are clear, without evidence of focal consolidation or pleural effusion. COPD mor susie present. Cardiomediastinal silhouette is within normal limits. Bones and soft tissues are unremar kable. Impression: No acute abnormality evident. COPD. Reviewed, dictated and finalized at location . Impression: No acute abnormality evident. COPD.
--- NOTE | 2024-07-09 09:46 | ECG_ITS ---
Test Date: 2024-07-09 09:53:02 Measurements Intervals [place] Rate: 108 P: 79 FL: 156 QRS: 83 QRSD: 133 T: 38 QT: 342 QTc: 460 Interpretive Statements SINUS TACHYCARDIA RIGHT BUNDLE BRANCH BLOCK BASELINE ARTIFACT- I, II, III, AVR, AVL ABNORMAL ECG Compared to ECG 04/23/2024 08:48:19 HEART RATE HAS INCREASED Electronically Signed On 07-09-2024 10:08:11 CDT by Reji Collier D.O.
[2024-07-09 09:47] VITALS: BP 174/80; PULSE 113; RESP 18; TEMP 36.8; O2SAT 96
[2024-07-09 10:02] LABS: Basophils Percent Auto 0.5 % (0.2-1.2); Eosinophils Absolute Auto 0.1 K/mm3 (0-0.3); Eosinophils Percent Auto 2.1 % (0-4.4); Hematocrit 42.9 % (37.0-47.0); Hemoglobin 13.6 g/dL (12.0-15.0); Immature Granulocyte Absolute 0.02 K/mm3 (0.00-0.031); Immature Granulocyte Percent A 0.3 % (0-0.5); Lymphocytes Absolute Auto 1.15 K/mm3 (0.9-3.2); Lymphocytes Percent Auto 18.4 % (18.3-44.2); Mean Corpuscular HGB Conc 31.7 g/dl (32-36); Mean Corpuscular Hemoglobin 30.9 pg (26-34); Mean Corpuscular Volume 97.5 fl (80-100); Mean Platelet Volume 9.8 fl (7.4-10.4); Monocytes Absolute Auto 0.4 K/mm3 (0.1-0.6); Monocytes Percent Auto 6.2 % (2.6-8.5); Neutrophils Absolute Auto 4.5 K/mm3 (1.3-6.7); Neutrophils Percent Auto 72.5 % (45.5-73.1); Platelet Count Result 201 k/mm3 (150-375); Red Cell Distribution Width 13.4 % (11.5-14.5); White Blood Count 6.3 K/mm3 (4.5-10.0)
--- OUTSIDE RECORDS SUMMARY | 2024-07-09 10:06 | XMS_ITS | Data Portability ---
Author Organization [facility], Main Office Address [address] [place] [address] Care Team Providers Care Medical Records Administrator Name Role Phone SARA MURO Primary Care Provider Assessment Encounter Date Assessment Date Assessment LastModified by Organization Details LastModified Time 09/01/2022 09/01/2022 This note is dictated and transcribed by [employer]. Airframe Design Engineer variances may occur. Despite proofreading, typographical errors may occur. Not available 09/01/2022 11:20:27 12/01/2022 12/01/2022 This note is dictated and transcribed by [employer]. Airframe Design Engineer variances may occur. Despite proofreading, typographical errors may occur. Not available 12/01/2022 14:39:18 06/05/2023 06/05/2023 This note is dictated and transcribed by [employer]. Airframe Design Engineer variances may occur. Despite proofreading, typographical errors may occur. Occasional wrong-word or 'lurzh-o-gwpy' substitutions may have occurred due to the [...] e 2 % topical cream 2022 023 [facility]/Pharmacy #[id number], [address] [place], [address], 14:39:02 Patient TargetsNo targets recorded. Patient InstructionsNo [...] ex infec tion unlik rosas. Not Available [address], [address], 01/28/2022 16:58:28 01/20/20 22 01/28/2022 QUANT IFERO N(R)- TB GOLD PLUS, 1 TUBE nil 0.01 IU/mL normal Not Available [address], [address], 01/28/2022 16:58:28 01/20/20 22 01/28/2022 QUANT IFERO N(R)- TB GOLD PLUS, 1 TUBE mitogen-nil >10.00 IU/mL normal Not Available [address], [address], 01/28/2022 16:58:28 01/20/20 22 01/28/2022 QUANT IFERO N(R)- TB GOLD PLUS, 1 TUBE TB1-nil 0.00 IU/mL normal Not Available [address], [address], 01/28/2022 16:58:28 01/20/20 22 01/28/2022 QUANT IFERO [...] e refer to https ://ed ucati on.qu winterSoundtracker/f aq/FA Q204 (This link is being provi ded for infor jessica harris/ educa tez l purpo ses only. ) Not Available As Seen on TV [facility] [address] [place], [address], 01/28/2022 16:58:28 01/20/2001/28/2022 B TYPE NATRI URETI [...] ol. 2002; 40:97 6-982 . Not Available As Seen on TV [facility] [address] [place], [address], 01/28/2022 16:58:27 01/20/2001/28/2022 ALPHA -1-AN TITRY PSIN (AAT) PHENO TYPE [id number] trypsin (aat) phenotype see note THIS PATIE [...] defic ient MZ pheno type. Not Available [facility] [address] [place], [address], 01/28/2022 16:58:27 01/20/20 22 01/28/2022 EOSIN OPHIL COUNT (B) white blood cell count 6.7 thous and/u L 3.8-10 .8 normal Not Available [facility] [address] [place], [address], 01/28/2022 16:58:26 01/20/20 22 01/28/2022 EOSIN OPHIL COUNT (B) absolute eosinophils 27 cells /uL 15-500 normal Not Available [address], [address], 01/28/2022 16:58:26 01/20/20 22 01/28/2022 EOSIN OPHIL COUNT (B) eosinophils 0.4 % normal Not Available [address], [address], 01/28/2022 16:58:26 01/20/20 22 01/28/2022 IMMUN OGLOB ULIN G SUBCL ASSES PANEL immunoglobul in g subclass 1 421 mg/dL 382-92 9 Not Available [address], [address], 01/28/2022 16:58:26 01/20/20 22 01/28/2022 IMMUN OGLOB ULIN G SUBCL ASSES PANEL immunoglobul in g subclass 2 198 mg/dL 241-70 0 low Not Available [address], [address], 01/28/2022 16:58:26 01/20/20 22 01/28/2022 IMMUN OGLOB ULIN G SUBCL ASSES PANEL immunoglobul in g subclass 3 39 mg/dL 22-178 Not Available [address], [address], 01/28/2022 16:58:26 01/20/20 22 01/28/2022 IMMUN OGLOB ULIN G SUBCL ASSES PANEL immunoglobul in g subclass 4 43.3 mg/dL 4.0-86 .0 Not Available [address], [address], 01/28/2022 16:58:26 01/20/20 22 01/28/2022 IMMUN OGLOB ULIN G SUBCL ASSES PANEL immunoglobul in g, serum 752 mg/dL 600-15 40 Not Available [facility] [address] [address] [place], [address], 01/28/2022 16:58:26 01/20/20 22 01/28/2022 INTER PRETA [...] for clini candida purpo ses. Not Available As Seen on TV [facility] [address] [place], [address], 01/28/2022 16:58:25 01/20/20 22 01/28/2022 RESPI RATOR Y ALLER GY PROFI LE REGIO N VIII class 0 Not Available [facility] [address] [place], [address], 01/28/2022 16:58:25 01/20/20 22 01/28/2022 RESPI RATOR Y ALLER GY PROFI LE REGIO N VIII dermatophago ides pteronyssinu s (D1) IgE 0.43 kU/L high Not Available [address] [address] [place], [address], 01/28/2022 16:58:25 01/20/20 22 01/28/2022 RESPI RATOR Y ALLER GY PROFI LE REGIO N VIII class 1 Not Available [address] [address] [place], [address], 01/28/2022 16:58:25 01/20/20 22 01/28/2022 RESPI RATOR Y ALLER GY PROFI LE REGIO N VIII dermatophago ides farinae (D2) IgE 0.32 kU/L high Not Available [address], [address], 01/28/2022 16:58:25 01/20/20 22 01/28/2022 RESPI RATOR Y ALLER GY PROFI LE REGIO N VIII class 0/1 Not Available [address], [address], 01/28/2022 16:58:25 01/20/20 22 01/28/2022 RESPI RATOR Y ALLER GY PROFI LE REGIO N VIII penicillium notatum (M1) IgE <0.10 kU/L normal Not Available [address], [address], 01/28/2022 16:58:25 01/20/20 22 01/28/2022 RESPI RATOR Y ALLER GY PROFI LE REGIO N VIII cladosporium herbarum (M2) IgE <0.10 kU/L normal Not Available [address], [address], 01/28/2022 16:58:25 01/20/20 22 01/28/2022 RESPI RATOR Y ALLER GY PROFI LE REGIO N VIII class 0 Not Available [facility] [address] [place], [address], 01/28/2022 16:58:25 01/20/20 22 01/28/2022 RESPI RATOR Y ALLER GY PROFI LE REGIO N VIII aspergillus fumigatus (M3) IgE 2.18 kU/L high Not Available [address], [address], 01/28/2022 16:58:25 01/20/20 22 01/28/2022 RESPI RATOR Y ALLER GY PROFI LE REGIO N VIII class 2 Not Available [address], [address], 01/28/2022 16:58:25 01/20/20 22 01/28/2022 RESPI RATOR Y ALLER GY PROFI LE REGIO N VIII alternaria alternata (M6) IgE 0.41 kU/L high Not Available [address] [address] [place], [address], 01/28/2022 16:58:25 01/20/20 22 01/28/2022 RESPI RATOR Y ALLER GY PROFI LE REGIO N VIII class 1 Not Available [address], [address], 01/28/2022 16:58:25 01/20/20 22 01/28/2022 RESPI RATOR Y ALLER GY PROFI LE REGIO N VIII CAT dander (E1) IgE 11.50 kU/L high Not Available [address] [address] [place], [address], 01/28/2022 16:58:25 01/20/20 22 01/28/2022 RESPI RATOR Y ALLER GY PROFI LE REGIO N VIII class 3 Not Available [address] [address] [place], [address], 01/28/2022 16:58:25 01/20/20 22 01/28/2022 RESPI RATOR Y ALLER GY PROFI LE REGIO N VIII dog dander (E5) IgE 4.71 kU/L high Not Available [address], [address], 01/28/2022 16:58:25 01/20/20 22 01/28/2022 RESPI RATOR Y ALLER GY PROFI LE REGIO N VIII class 3 Not Available [address] [address] [place], [address], 01/28/2022 16:58:25 01/20/20 22 01/28/2022 RESPI RATOR Y ALLER GY PROFI LE REGIO N VIII cockroach (I6) IgE 0.21 kU/L high Not Available [address] [address] [place], [address], 01/28/2022 16:58:25 01/20/20 22 01/28/2022 RESPI RATOR Y ALLER GY PROFI LE REGIO N VIII class 0/1 Not Available [address], [address], 01/28/2022 16:58:25 01/20/20 22 01/28/2022 RESPI RATOR Y ALLER GY PROFI LE REGIO N VIII maple (box elder) (T1) IgE <0.10 kU/L normal Not Available [address], [address], 01/28/2022 16:58:25 01/20/20 22 01/28/2022 RESPI RATOR Y ALLER GY PROFI LE REGIO N VIII class 0 Not Available [address], [address], 01/28/2022 16:58:25 01/20/20 22 01/28/2022 RESPI RATOR Y ALLER GY PROFI LE REGIO N VIII mountain cedar (T6) IgE <0.10 kU/L normal Not Available [address] [address] [place], [address], 01/28/2022 16:58:25 01/20/20 22 01/28/2022 RESPI RATOR Y ALLER GY PROFI LE REGIO N VIII class 0 Not Available [address] [address] [place], [address], 01/28/2022 16:58:25 01/20/20 22 01/28/2022 RESPI RATOR Y ALLER GY PROFI LE REGIO N VIII walnut tree (T10) IgE <0.10 kU/L normal Not Available [address] [address] [place], [address], 01/28/2022 16:58:25 01/20/20 22 01/28/2022 RESPI RATOR Y ALLER GY PROFI LE REGIO N VIII class 0 Not Available [address] [address] [place], [address], 01/28/2022 16:58:25 01/20/20 22 01/28/2022 RESPI RATOR Y ALLER GY PROFI LE REGIO N VIII sycamore (T11) IgE <0.10 kU/L normal Not Available [address] [address] [place], [address], 01/28/2022 16:58:25 01/20/20 22 01/28/2022 RESPI RATOR Y ALLER GY PROFI LE REGIO N VIII class 0 Not Available [address] [address] [place], [address], 01/28/2022 16:58:25 01/20/20 22 01/28/2022 RESPI RATOR Y ALLER GY PROFI LE REGIO N VIII cottonwood (T14) IgE <0.10 kU/L normal Not Available [address] [address] [place], [address], 01/28/2022 16:58:25 01/20/20 22 01/28/2022 RESPI RATOR Y ALLER GY PROFI LE REGIO N VIII class 0 Not Available [address], [address], 01/28/2022 16:58:25 01/20/20 22 01/28/2022 RESPI RATOR Y ALLER GY PROFI LE REGIO N VIII white shaji (T15) IgE 0.32 kU/L high Not Available [address] [address] [place], [address], 01/28/2022 16:58:25 01/20/20 22 01/28/2022 RESPI RATOR Y ALLER GY PROFI LE REGIO N VIII class 0/1 Not Available [address], [address], 01/28/2022 16:58:25 01/20/20 22 01/28/2022 RESPI RATOR Y ALLER GY PROFI LE REGIO N VIII oak (T7) IgE <0.10 kU/L normal Not Available [address], [address], 01/28/2022 16:58:25 01/20/20 22 01/28/2022 RESPI RATOR Y ALLER GY PROFI LE REGIO N VIII class 0 Not Available [address], [address], 01/28/2022 16:58:25 01/20/20 22 01/28/2022 RESPI RATOR Y ALLER GY PROFI LE REGIO N VIII elm (T8) IgE <0.10 kU/L normal Not Available [address], [address], 01/28/2022 16:58:25 01/20/20 22 01/28/2022 RESPI RATOR Y ALLER GY PROFI LE REGIO N VIII class 0 Not Available [address], [address], 01/28/2022 16:58:25 01/20/20 22 01/28/2022 RESPI RATOR Y ALLER GY PROFI LE REGIO N VIII hickory/peca n tree (T22) IgE <0.10 kU/L normal Not Available [address], [address], 01/28/2022 16:58:25 01/20/20 22 01/28/2022 RESPI RATOR Y ALLER GY PROFI LE REGIO N VIII class 0 Not Available [address], [address], 01/28/2022 16:58:25 01/20/20 22 01/28/2022 RESPI RATOR Y ALLER GY PROFI LE REGIO N VIII white mulberry (T70) IgE <0.10 kU/L normal Not Available [address], [address], 01/28/2022 16:58:25 01/20/20 22 01/28/2022 RESPI RATOR Y ALLER GY PROFI LE REGIO N VIII class 0 Not Available [address], [address], 01/28/2022 16:58:25 01/20/20 22 01/28/2022 RESPI RATOR Y ALLER GY PROFI LE REGIO N VIII bermuda grass (g2) IgE <0.10 kU/L normal Not Available [facility] [address], [address], 01/28/2022 16:58:25 01/20/20 22 01/28/2022 RESPI RATOR Y ALLER GY PROFI LE REGIO N VIII class 0 Not Available [facility] [address] [place], [address], 01/28/2022 16:58:25 01/20/20 22 01/28/2022 RESPI RATOR Y ALLER GY PROFI LE REGIO N VIII nneka grass (g6) IgE 0.61 kU/L high Not Available [address], [address], 01/28/2022 16:58:25 01/20/20 22 01/28/2022 RESPI RATOR Y ALLER GY PROFI LE REGIO N VIII class 1 Not Available [address] [address] [place], [address], 01/28/2022 16:58:25 01/20/20 22 01/28/2022 RESPI RATOR Y ALLER GY PROFI LE REGIO N VIII common ragweed (short) (W1) IgE 0.18 kU/L high Not Available [address], [address], 01/28/2022 16:58:25 01/20/20 22 01/28/2022 RESPI RATOR Y ALLER GY PROFI LE REGIO N VIII class 0/1 Not Available [address], [address], 01/28/2022 16:58:25 01/20/20 22 01/28/2022 RESPI RATOR Y ALLER GY PROFI LE REGIO N VIII class 1 Not Available [address], [address], 01/28/2022 16:58:25 01/20/20 22 01/28/2022 RESPI RATOR Y ALLER GY PROFI LE REGIO N VIII rough pigweed (W14) IgE <0.10 kU/L normal Not Available [address], [address], 01/28/2022 16:58:25 01/20/20 22 01/28/2022 RESPI RATOR Y ALLER GY PROFI LE REGIO N VIII class 0 Not Available [address] [address] [place], [address], 01/28/2022 16:58:25 01/20/20 22 01/28/2022 RESPI RATOR Y ALLER GY PROFI LE REGIO N VIII georgian thistle (W11) IgE 0.46 kU/L high Not Available [address] [address] [place], [address], 01/28/2022 16:58:25 01/20/20 22 01/28/2022 RESPI RATOR Y ALLER GY PROFI LE REGIO N VIII rough welch elder (W16) IgE <0.10 kU/L normal Not Available [address] [address] [place], [address], 01/28/2022 16:58:25 01/20/20 22 01/28/2022 RESPI RATOR Y ALLER GY PROFI LE REGIO N VIII class 0 Not Available [address] [address] [address] , [place], [address], 01/28/2022 16:58:25 01/20/20 22 01/28/2022 RESPI RATOR Y ALLER GY PROFI LE REGIO N VIII mouse urine proteins (E72) IgE <0.10 kU/L normal Not Available [address] [address] [address] , [place], [address], 01/28/2022 16:58:25 01/20/20 22 01/28/2022 RESPI RATOR Y ALLER GY PROFI LE REGIO N VIII class 0 Not Available [address] [address] [place], [address], 01/28/2022 16:58:25 01/20/20 22 01/28/2022 RESPI RATOR Y ALLER GY PROFI LE REGIO N VIII immunoglobul in E 169 kU/L <or=11 4 high Not Available [address] [address] [place], [address], 01/28/2022 16:58:25 02/15/19 23 02/15/2022 XR, chest , 2 view No observ ation record ed. [id number] [facility] (One Call Scheduling) [address] [facility], [place], [address], 04/07/2022 01:26:59 03/28/19 23 03/18/2022 PFT, compl ete No observ ation record ed. [id number] [facility] (Imaging) [address], [place], [address], 04/07/2022 01:26:59 Result Notes None recorded. 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 Active 2022 Jared Rousseau DPM [address], [address] , [facility] 3 11:19:33 Hammer toe 556417061 Active 2022 Jared Rousseau DPM [address], [address] , [facility] 3 11:19:37 Onychomycosis of toenails 682784547 Active 2022 Jared Rousseau DPM [address] [address], [place], [address] , [facility] 3 14:38:46 Notes:Medical History: Epile psy on [...] Rousseau DPM [address], [address], [place], [address], [facility] 06/05/2023 15:03:52 4 Nail Debridement completed Jared Rousseau DPM [address], [address], [place], [address], [facility] 03/02/2023 14:48:15 3 Nail Debridement completed Jared Rousseau DPM [address], [address], [place], [address], [facility] 12/01/2022 14:38:41 3 Nail Debridement completed Jared Rousseau DPM [address], [address], [place], [address], [facility] 09/01/2022 11:19:21 Imaging Results None recorded. Procedure [...] Available Not Available Not Available Urbano Patel [facility] spacer DIRECTED active Not Available Not Available No t Available Breyna 80 mcg-4.5 mcg/actuati on HFA aerosol inhaler INHALE 2 PUFFS BY MOUTH 2 TIMES PER DAY active Not Available Not Available No t Available Vitals Date Recorded Body height Heart rate Respiratory rate Oxygen saturation Oxygen saturation in Arterial blood by Pulse oximetry Systolic blood pressure Diastolic blood pressure Provider Name and Address Organization Details Last Updated DateTime 4 162.56 cm 75 /min 14 /min 98 % 98 % 142 mm[Hg] 79 mm[Hg] Mar HANE[facility] 4 14:20:30 Date Recorded Body height Body mass index (BMI) Body weight Heart rate Respiratory rate Oxygen saturation Oxygen saturation in Arterial blood by Pulse oximetry Systolic blood pressure Diastolic blood pressure Provider Name and Address Organization Details Last Updated DateTime 4 162.56 cm 21.5 kg/m2 23048.0 5 g 83 /min 14 /min 98 % 98 % 116 mm[Hg] 63 mm[Hg] Edwige Isaac [facility] iodine [facility] 4 14:39:49 Date Recorded Body height Body mass index (BMI) Body weight Provider Name and Address Organization Details Last Updated DateTime 09/01/2022 162.56 cm 21.5 kg/m2 57813.05 g Mar Senior [facility] 09/01/2022 10:33:45 Date Recorded Heart rate Respiratory rate Oxygen saturation Oxygen saturation in Arterial blood by Pulse oximetry Systolic blood pressure Diastolic blood pressure Provider Name and Address Organization Details Last Updated DateTime 3 81 /min 14 /min 98 % 98 % 122 mm[Hg] 66 mm[Hg] Edwige Isaac [facility] 3 10:38:44 Date Recorded Body height Body mass index (BMI) Body weight Heart rate Respiratory rate Oxygen saturation Oxygen saturation in Arterial blood by Pulse oximetry Systolic blood pressure Diastolic blood pressure Provider Name and Address Organization Details Last Updated DateTime 3 162.56 cm 21.5 kg/m2 90506.0 5 g 95 /min 14 /min 98 % 98 % 153 mm[Hg] 82 mm[Hg] Edwige Isaac [facility] 3 14:06:53 Date Recorded Body mass index (BMI) Heart rate Body height Oxygen saturation Oxygen saturation in Arterial blood by Pulse oximetry Heart rate Respiratory rate Body temperature Body weight Systolic blood pressure Diastolic blood pressure Provider Name and Address Organization Details Last Updated DateTime 2 24 kg/m2 97 /min 163.83 cm 96 % 96 % 97 /min 15 /min 98.4 [degF] 85272.4 g 136 mm[Hg] 80 mm[Hg] Not Available [facility] 3 01:25:05 Social History Question Answer Notes LastModified by Organizat ion Details LastModified Time Tobacco Smoking Status Never Smoker Not Available [facility] 04/07/2022 01:23:56 In The 14 Days Before Symptom Onset, Have You Had Close Contact With A Laboratory-confir med COVID-19 While That Case Was Ill? No [id number] Information not available 04/07/2022 In The 14 Days Before Symptom Onset, Have You Had Close Contact With A Person Who Is Under Investigation For COVID-19 While That Person Was Ill? No [id number] Information not available 04/07/2022 What Type Of Diet Are You Following? REGULAR [id number].[id number] Information not available 04/07/2022 Do You Have An Electrostatic Air Filter? No [id number] [id number] Information not available 04/07/2022 Are There Any Guns Present In Your Home? No MIGRATION.85533 [id number] Information not available 04/07/2022 Do You Have A Humidifier? No MIGRATION.33573 [id number] Information not available 04/07/2022 Where Do You Live? [place] MIGRATION.67660 [address] Information not available 04/07/2022 Do You Have Moisture Problems In Your Home? No MIGRATION.65324 63953 Information not available 04/07/2022 What Was The Date Of Your Most Recent Tobacco Screening? 01/19/2022 MIGRATION.[id number] [id number] Information not available 04/07/2022 Do You Have Any Pets? Yes MIGRATION.96262 91722 Information not available 04/07/2022 Do You Have Smoke And Carbon Monoxide Detectors In Your Home? Yes MIGRATION.18900 93373 Information not available 04/07/2022 Are You Passively Exposed To Smoke? No MIGRATION.41179 14502 Information not available 04/07/2022 Do You Use Sunscreen Routinely? No MIGRATION.08729 81699 Information not available 04/07/2022 Have You Recently Traveled Abroad? No MIGRATION.02986 [address] Information not available 04/07/2022 Do You Have Any Dietary Restrictions? No MIGRATION.51523 03427 Information not available 04/07/2022 Sex: Unknown Functional Status Question Answer Note LastModified by Organizat ion Details LastModified Time Do you use any illicit or recreational drugs? No [id number] Information not available 04/07/2022 What is your level of alcohol consumption? None [id number] Information not available 04/07/2022 What is your exercise level? Moderate [id number] 26 Information not available 04/07/2022 Mental Status None recorded. Family History Relationship Description Onset Age of this Age Resolved Age Notes LastModified by Organization Details LastModified Time Father Myocardial infarction [id number] Not available 04/07/2022 01:24:33 Mother Alzheimer's disease [id number].910 [id number] Not available 04/07/2022 01:24:33 Mother Methicillin resistant Staphylococc us aureus infection [id number].228 [id number] Not available 04/07/2022 01:24:33 Unspecified Relation Hypertensive disorder [email or web address] Not available 2022 10:35:10 Medical History Condition Response USE OF BLOOD THINNERS N DIABETES, TYPE N HIGH CHOLESTEROL / HYPERLIPIDEMIA N DIZZINESS Y HYPERTENSION Y Gynecological HistoryNo gynecological history recorded. Obstetrics History GPAL:G 0 P 0 0 0 0 Past Encounters Encounter ID Performer Location Encounter Start Date Encounter Closed Date Diagnosis/Indication Diagnosis SNOMED-CT Code Diagnosis ICD10 Code Diagnosis Note [id number] Sage Davis MD [facility] [place] [address] [facility] [address] [place] [address] 10/06/2021 00:00:00 10/06/2021 12:38:17 [id number] Adam Heredia MD [facility] [address] [address] 01/19/2022 00:00:00 01/19/2022 12:28:51 [id number] Jared Rousseau DPM [facility] [place] [address] [facility] [address] [place] [address] 09/01/2022 10:31:37 09/01/2022 11:27:16 Hammer toe 018402517 M20.41 M20.42 treatment options reviewedpa tient elects to continue with conservati ve offloading Educated on wide shoe gear and offloading to prevent woundsFoll ow-up as needed Dystrophia unguium 65101 009 L60.3 Nails 1 through 10 were debrided with sharp mechanical debridemen t without incident. Nails were debrided and greater than 50% length and thickness where needed.Fol low-up in 3 months as needed for routine nail care [id number] Jared Rousseau DPM [facility] [place] [address] [place] [address] 12/01/2022 13:59:56 12/01/2022 15:58:38 Onychomycosis of toenails 915543817 B35.1 educated on treatment optionsNai ls debrided without incidentRx ketoconazo leFollow-u p in 3 months [id number] Jared Rousseau DPM [facility] [place] [address] [place] [address] 03/02/2023 14:13:31 03/08/2023 09:28:50 Dystrophia unguium 98477718 L60.3 Nails 1 through 10 were debrided with sharp mechanical debridemen t without incident. Nails were debrided and greater than 50% length and thickness where needed.Fol low-up in 3 months as needed for routine nail care [id number] Jared Rousseau DPM [facility] [place] [address] [place] [address] 06/05/2023 14:32:05 06/06/2023 11:11:43 Onychomycosis of toenails 777472630 B35.1 educated on treatment optionsNai ls debrided [...] (MEDICARE REPLACEMENT/A DVANTAGE - HMO) Norma Chinchilla [id number] Norma Chinchilla 12/01/2022 1 [employer] (MEDICARE REPLACEMENT/A DVANTAGE - HMO) Norma Chinchilla [id number] Norma Chinchilla 03/02/2023 1 [employer] (MEDICARE REPLACEMENT/A DVANTAGE - HMO) Norma Chinchilla [id number] Norma Chinchilla 06/05/2023 1 [employer] (MEDICARE REPLACEMENT/A DVANTAGE - HMO) Norma Amor [id number] Norma Chinchilla Notes Date Note Type Note [...] any other pedal complaints. Jared Rousseau DPM [address] [employer], [place], [address], [facility] 09/01/2022 11:21:08 12/01/2022 text/html . Patient is an 87-year-old female who returns the office for follow-up on Elongated thickened toenails. Patient states she would like to try a topical medication to see if it will improve the nails. Patient denies any other pedal complaints. Jared Rousseau DPM [address], [place], [address], [facility] 12/01/2022 14:39:31 03/02/2023 text/html . Patient is an 87-year-old female who returns the office for routine foot care. Patient states her nails are long would like to have them cut. Patient denies any other complaints. Jared Rousseau DPM [address], [address], [place], [address], [facility] 03/02/2023 14:48:32 06/05/2023 text/html . Patient is an 88-year-old female who returns the office for follow-up on bilateral great toenail onychomycosis to which she has been placing topical ketoconazole. Patient states the nails have improved with use of the ketoconazole. Patient denies any other complaints. Jared Rousseau DPM [address], [place], [address], [facility] 06/05/2023 15:05:04 OBGyn Episode No OBEpisode recorded.
--- OUTSIDE RECORDS SUMMARY | 2024-07-09 10:06 | XMS_ITS | Referral Summary ---
Author Organization [facility] [place] [address] [facility] Address [address] [place] [address] Care Team Providers Care Engine Lathe Tender Name Role Phone Unavailable Primary Care Provider [...] regimen Assessment & Plan (02/03/2019 3:25 PM QUALITY TECHNICIAN FIBERGLASS): Sxs most consistent with allergies vs common [...] of continued A1c control to minimize the senior care effects of diabetes. Bring accuchecks to office [...] of continued A1c control to minimize the termite inspector effects of diabetes. Bring accuchecks to office [...] of continued A1c control to minimize the senior care effects of diabetes. Bring accuchecks to office when instructed to do so. Check A1c about every 3-6 months. Take medication as prescribed. Get annual eye exam. Encouraged ALISSA/Statin if able to tolerate. Encouraged weight control and encouraged diabetic diet and exercise. Continue metformin Assessment & Plan (11/03/2018 10:41 PM CDT): Stressed importance of continued A1c control to minimize the senior care effects of diabetes. Bring accuchecks to office [...] of continued A1c control to minimize the termite inspector effects of diabetes. Bring accuchecks to office [...] of continued A1c control to minimize the termite inspector effects of diabetes. Bring accuchecks to office when instructed to do so. Check A1c about every 3-6 months. Take medication as prescribed. Get annual eye exam. Encouraged ALISSA/Statin if able to tolerate. Encouraged weight control and encouraged diabetic diet and exercise. Pt has been non-compliant with her medication. Encouraged to take as directed to decrease termite inspector sequela. Encouraged patient to continue low fat/low chol diet. Continue exercise. Increase good fats in the diet. Monitor labs as needed. 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 Bring accuchecks to office [...] of continued A1c control to minimize the senior care effects of diabetes. Bring accuchecks to office [...] of continued A1c control to minimize the termite inspector effects of diabetes. Bring accuchecks to office [...] 020 Assessment & Plan (01/28/2019 4:48 PM QUALITY TECHNICIAN FIBERGLASS): Weight/BMI is in healthy range. Continue healthy [...] on file Legal Sex Female 9:21 PM QUALITY TECHNICIAN FIBERGLASS Gender Identity Not on file Sexual Orientation [...] Bone Density 1 or 2 Site (10/27/2020) [facility] SCRIBED DXA T-SCORE -2.1 SCRIBED DXA Z-SCORE 2.1 Anatomical Region Laterality Modality Body N/A Radiographic Marjorie ging Ericka DUMONT IMG DXA PROCEDURES Edited Result - Final * (ABNORMAL) Hemoglobin A1c (09/01/2020 9:34 AM CDT) [facility] Hgb A1C 5.7(H) <5.7 % of total Hgb [facility] Blood specimen (specimen) 09/01/2020 9:34 AM CDT 09/01/2020 9:37 AM CDT Narrative [facility] - 09/02/2020 11:35 AM CDT FASTING:YES FASTING: YES us Ericka DUMONT LAB BLOOD ORDERABLES Final Result [facility] [address] [place] [address] * Lipid panel (09/01/2020 9:34 AM CDT) [facility] Cholesterol 190 <200 mg/dL [facility] [...] LDL-C. Lev GARZA et al. JEN. 2013;310(19): 6688-7762 (http://education.MD Revolution/faq/AIV073) Chol/HDL ratio 1.9 <5.0 (calc) [facility] Non-HDL, (LDL+VLDL) 91 <130 mg/dL (calc) [facility] Comment: For patients with diabetes plus 1 major ASCVD risk factor, treating to a non-HDL-C goal of <100 mg/dL (LDL-C of <70 mg/dL) is considered a therapeutic option. 09/01/2020 9:34 AM CDT 09/01/2020 9:37 AM CDT Narrative [facility] - 09/02/2020 11:35 AM CDT FASTING:YES FASTING: YES Ericka DUMONT LAB BLOOD ORDERABLES Final Result [facility] [address] [place] [address] * (ABNORMAL) Comprehensive metabolic panel (09/01/2020 9:34 AM CDT) Pathologist [facility] Glucose 104(H) 65 - 99 mg/dL [facility] [...] approximately 13% higher for people identified as -Serbian. eGFR NON-AFR. CITIZEN OF [place] 45(L) > OR = 60 mL/min/1. 73m2 [...] BLOOD ORDERABLES Final Result [facility] [address] [address] * DIABETES EYE EXAM (04/10/2019) Historical Provider HEALTH MAINTENANCE Edited Result - Final * Microalbumin / creatinine ratio, urine, random (04/16/2018 7:50 AM CDT) CREATININE, RANDOM URINE 136 20 - 275 mg/dL [facility] HISTORICAL RESULTS MICROALBUMIN 3.3 See Note: mg/dL [facility] HISTORICAL RESULTS Comment: Reference Range: Reference Range Not established MICROALBUMIN/CREAT ININE RATIO, RANDOM URINE 24 <30 mcg/mg creat [facility] HISTORICAL RESULTS Comment: The ADA defines abnormalities [...] AM CDT 04/17/2018 12:15 PM CDT Narrative [facility] HISTORICAL RESULTS - 04/17/2018 11:54 AM CDT 0; FASTING; 0; 0; 0; 0 FASTING:YES FASTING: YES PERFORMING LAB: [place], [facility] [address], [place] [address] Jay Pride D.O., MPH Historical Provider LAB URINE ORDERABLES Meghan quiñones Result [facility] HISTORICAL RESULTS from Last 3 Months or Most Recently Relevant to Health Maintenance Insurance MEDICARE HMO
--- OUTSIDE RECORDS SUMMARY | 2024-07-09 10:06 | XMS_ITS | Clinical Summary ---
Author Organization [facility] [address] [facility] Address [address] [place] [address] Care Team Providers Care Canvas Baster Jumpbasting Name Role Phone Unavailable Primary Care Provider [...] regimen Assessment & Plan (02/03/2019 3:25 PM COORDINATOR OF EVALUATION): Sxs most consistent with allergies vs common [...] of continued A1c control to minimize the care home effects of diabetes. Bring accuchecks to [...] of continued A1c control to minimize the long wall mining machine tender effects of diabetes. Bring accuchecks to office [...] of continued A1c control to minimize the care home effects of diabetes. Bring accuchecks to office when instructed to do so. Check A1c about every 3-6 months. Take medication as prescribed. Get annual eye exam. Encouraged ALISSA/Statin if able to tolerate. Encouraged weight control and encouraged diabetic diet and exercise. Continue metformin Assessment & Plan (11/03/2018 10:41 PM CDT): Stressed importance of continued A1c control to minimize the care home effects of diabetes. Bring accuchecks to [...] of continued A1c control to minimize the long wall mining machine tender effects of diabetes. Bring accuchecks to office [...] of continued A1c control to minimize the long wall mining machine tender effects of diabetes. Bring accuchecks to office when instructed to do so. Check A1c about every 3-6 months. Take medication as prescribed. Get annual eye exam. Encouraged ALISSA/Statin if able to tolerate. Encouraged weight control and encouraged diabetic diet and exercise. Pt has been non-compliant with her medication. Encouraged to take as directed to decrease long wall mining machine tender sequela. Encouraged patient to continue low fat/low chol diet. Continue exercise. Increase good fats in the diet. Monitor labs as needed. 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 Bring accuchecks to [...] of continued A1c control to minimize the care home effects of diabetes. Bring accuchecks to [...] of continued A1c control to minimize the long wall mining machine tender effects of diabetes. Bring accuchecks to office [...] 020 Assessment & Plan (01/28/2019 4:48 PM COORDINATOR OF EVALUATION): Weight/BMI is in healthy range. Continue healthy [...] on file Legal Sex Female 9:21 PM COORDINATOR OF EVALUATION Gender Identity Not on file Sexual Orientation [...] Bone Density 1 or 2 Site (10/27/2020) [facility] SCRIBED DXA T-SCORE -2.1 SCRIBED DXA Z-SCORE 2.1 Anatomical Region Laterality Modality Body N/A Radiographic Marjorie ging us Ericka DUMONT IMG DXA PROCEDURES Edited Result - Final * (ABNORMAL) Hemoglobin A1c (09/01/2020 9:34 AM CDT) [facility] Hgb A1C 5.7(H) <5.7 % of total Hgb [facility] Blood specimen (specimen) 09/01/2020 9:34 AM CDT 09/01/2020 9:37 AM CDT Narrative [facility] - 09/02/2020 11:35 AM CDT FASTING:YES FASTING: YES Ericka DUMONT LAB BLOOD ORDERABLES Final Result [facility] [address] [place] [address] * Lipid panel (09/01/2020 9:34 AM CDT) [facility] Cholesterol 190 <200 mg/dL [facility] [...] LDL-C. Lev GARZA et al. JEN. 2013;310(19): 7169-4728 (http://education.Gimmie.Prêt d'Union/faq/ZHM890) Chol/HDL ratio 1.9 <5.0 (calc) [facility] DUMONT LAB BLOOD ORDERABLES Final Result [facility] [address] [place] [address] * (ABNORMAL) Comprehensive metabolic panel (09/01/2020 9:34 AM CDT) Pathologist [facility] Glucose 104(H) 65 - 99 mg/dL [facility] [...] approximately 13% higher for people identified as -Nauruan. eGFR NON-AFR. [place] 45(L) > OR = 60 mL/min/1. 73m2 [...] LAB BLOOD ORDERABLES Final Result [facility] [address] [address] * DIABETES EYE EXAM (04/10/2019) Historical Provider HEALTH MAINTENANCE Edited Result - Final * Microalbumin / creatinine ratio, urine, random (04/16/2018 7:50 AM CDT) CREATININE, RANDOM URINE 136 20 - 275 mg/dL [facility] HISTORICAL RESULTS MICROALBUMIN 3.3 See Note: mg/dL [facility] HISTORICAL RESULTS Comment: Reference Range: Reference Range Not established MICROALBUMIN/CREAT ININE RATIO, RANDOM URINE 24 <30 mcg/mg creat [facility] HISTORICAL RESULTS Comment: The ADA defines [...] AM CDT 04/17/2018 12:15 PM CDT Narrative [facility] HISTORICAL RESULTS - 04/17/2018 11:54 AM CDT 0; FASTING; 0; 0; 0; 0 FASTING:YES FASTING: YES PERFORMING LAB: [place], [facility] [address] [place] [address] Jay Pride D.O., MPH Historical Provider LAB URINE ORDERABLES Meghan quiñones Result [facility] HISTORICAL RESULTS from Last 3 Months or Most Recently Relevant to Health Maintenance Insurance [employer] MEDICARE HMO
--- OUTSIDE RECORDS SUMMARY | 2024-07-09 10:06 | XMS_ITS | CONTINUITY OF CARE DOCUMENT ---
Author Name humberto paul Address Unknown Organization [facility] Address [address] [place] [address] Phone [phone] Care Team Providers Care Income Tax Return Preparer Name Role Phone Mikhail MCFADDEN, Rosemary Unavailable SARA MURO MD Unavailable [phone] SARA MURO MD Unavailable [phone] PROBLEMS Condition Status Date Provider Notes Fatigue [...] In-person encounter Office Visit Rosemary Elizondo MD [facility] - In-person encounter Office Visit Rosemary Elizondo MD [facility] Cardiology examination - In-person encounter Office Visit Rosemary Elizondo MD [facility] CKD stage 3Diabetes mellitus, type 2Hx of SeizureEdema, anklesShortness of breath VITAL SIGNS Date Observation Value Provider Body Mass Index (Ratio) 20.18 kg/m2 Lawson Elizondo MD blood pressure, diastolic 75 mm[Hg] Kenneth landerosn Srivastava blood pressure, systolic 135 mm[Hg] Karyn torres Srivastava oxygen saturation, oximetry 95 % [facility] pulse rate 87 /min [facility] Srivastava blood pressure, cuff size regular Kenneth pia Srivastava weight E&M 117.6 [lb_av] [facility] Srivastava height E&M 64 [in_i] [facility] Srivastava Body Mass Index (Ratio) 21.83 kg/m2 Lawson Elizondo MD blood pressure, diastolic 66 mm[Hg] Li nkLogic blood pressure, systolic 134 mm[Hg] Arpita kLogic blood pressure, cuff size regular Ta bitamelia Fernando blood pressure, diastolic 66 mm[Hg] Ta bitha Fernando blood pressure, systolic 134 mm[Hg] [facility] [place] oxygen saturation, oximetry 99 % [facility] respiratory rate E&M 12 /min Cheri [place] pulse rate 89 /min Cheri [place] weight E&M 127.2 [lb_av] Cheri [place] height E&M 64 [in_i] Cheri [place] Body Mass Index (Ratio) 24.37 kg/m2 Lawson Elizondo MD blood pressure, diastolic 62 mm[Hg] Li nkLogjuana blood pressure, systolic 116 mm[Hg] Arpita kLogic blood pressure, cuff size regular Ca therine [place] blood pressure, diastolic 62 mm[Hg] Ca therine [place] blood pressure, systolic 116 mm[Hg] Cat herine [place] pulse rate 90 /min Lucina [place] oxygen saturation, oximetry 96 % Lucina Fitz respiratory rate E&M 16 /min Sherry ne [place] weight E&M 142 [lb_av] Lucina Fitz height E&M 64 [in_i] Lucina [place] ALLERGIES No Known Drug Allergies HISTORY OF [...] 110 mcg/actuation HFA aerosol inhaler active Lucina [place] phenytoin sodium extended 100 mg capsule completed TAKE 1 CAPSULE BY MOUTH EVERY MORNING, AT NOON, AND TAKE 2 CAPSULES AT BEDTIME - 06/20 Julius Garcia loratadine 10 mg tablet completed TAKE 1 TABLET BY MOUTH EVERY DAY - 06/20 Julius Garcia fluticasone propionate 50 mcg/actuation spray,suspension active Lucina [place] albuterol sulfate 90 mcg/actuation HFA aerosol inhaler [...] Payer name Policy type / Coverage type [place] [employer] [facility] [id number] 3 ADVANCE DIRECTIVES Name Date DISCUSSED - NO DECISION MADE TREATMENT PLAN Date Name Performer [id number],S, Julius Wyattkeron i [id number],S, Julius Ewelina i [id number],S, Julius Ewelina i [id number],S, Julius Ewelina i [id number],S, Julius Ewelina i Cardiology Rosemary Elizondo MD [...]
--- OUTSIDE RECORDS SUMMARY | 2024-07-09 10:06 | XMS_ITS | Encounter Summary ---
Author Organization [facility] Care Team Providers Care Tape Rules Printing Machine Operator Name Role Phone Ericka Perera Primary Care Provider [phone] Jimenez Tavarez MD Primary Care Provider [phone] Ericka Perera Primary Care Provider [phone] Encounter Details Date Type Department Care Team (Latest Contact Info) Description 01/03/2018 Orders Only [facility] CLINCONV ProviderJenn MD [address] [place] [address] Social History Tobacco Use Types Packs/Day Years Used Date Smoking Tobacco: Never Assessed Comments Unknown Sex and Gender Information Value Date Recorded Sex Assigned at Not on file Legal Sex Female 9:21 PM COMPUTER METEOROLOGIST Gender Identity Not on file Sexual Orientation Not on file documented as of this encounter Plan of Treatment Not on file documented as of this encounter Procedures Procedure Name Priority Date/Time Associated Diagnosis Comments SCAN - LABS 01/04/2018 12:00 AM COMPUTER METEOROLOGIST documented in this encounter Results * SCAN - LABS (01/04/2018 12:00 AM COMPUTER METEOROLOGIST) Narrative 01/04/2018 12:00 AM COMPUTER METEOROLOGIST Ordered by an unspecified provider. Historical Provider Final Res ult documented in this encounter Visit Diagnoses Not on filedocumented in this encounter Care Teams Tape Rules Printing Machine Operator Relationship Specialty Start Date End Date Ericka Perera PA [address] [place] [address] PCP - General Internal Medicine 07/24/18 07/14/21 Jimenez Tavarez MD [address] [place] [address] PCP - General Emergency Medicine 09/27/21 11/28/21 Ericka Perera PA [address] [place] [address] PCP - General Internal Medicine 11/29/21 11/29/21 documented as of this encounter
[2024-07-09 10:20] LABS: INR 0.9; Prothrombin Time 12.5 Seconds (11.1-14.7)
[2024-07-09 10:21] LABS: Partial Thromboplastin Time 25.7 Seconds (22.3-36.8)
[2024-07-09 10:33] LABS: Alanine Aminotransferase 15 U/L (6-35); Albumin Level 4.3 g/dL (3.5-5.1); Alkaline Phosphatase 77 U/L (38-126); Anion Gap 6 mmol/L (4-12); Aspartate Amino Transferase 29 U/L (14-36); Blood Urea Nitrogen 14 mg/dL (7-17); Calcium 9.7 mg/dL (8.4-10.2); Carbon Dioxide 28 mmol/L (22-30); Chloride 106 mmol/L (98-107); Estimated CRCL calculation 24 ml/min; Estimated Glomerular Filt Rate 44; Glucose 120 mg/dL (65-110); Lipase 20 U/L (23-300); Potassium 4.3 mmol/L (3.4-5.0); Sodium 140 mmol/L (137-145); Total Protein 7.1 g/dL (6.3-8.2); Troponin I < 0.012 ng/mL (0.000-0.034)
[2024-07-09] MEDS: ASPIRIN 81 MG CHEWABLE TABLET 324 MG PO (10:46)
[2024-07-09 10:49] VITALS: BP 155/79; PULSE 95; PULSE 99; RESP 18; O2SAT 95
--- OUTSIDE RECORDS SUMMARY | 2024-07-09 11:24 | XMS_ITS | Clinical Summary ---
Author Organization [facility] [place] [address] [facility] Address [address] [place] [address] Care Team Providers Care Interventional Tech Name Role Phone Unavailable Primary Care Provider [...] regimen Assessment & Plan (02/03/2019 3:25 PM FOOD SERVICE SPECIALIST): Sxs most consistent with allergies vs common [...] of continued A1c control to minimize the prison effects of diabetes. Bring accuchecks to office [...] of continued A1c control to minimize the watermelon inspector effects of diabetes. Bring accuchecks to [...] of continued A1c control to minimize the prison effects of diabetes. Bring accuchecks to office when instructed to do so. Check A1c about every 3-6 months. Take medication as prescribed. Get annual eye exam. Encouraged ALISSA/Statin if able to tolerate. Encouraged weight control and encouraged diabetic diet and exercise. Continue metformin Assessment & Plan (11/03/2018 10:41 PM CDT): Stressed importance of continued A1c control to minimize the prison effects of diabetes. Bring accuchecks to office [...] of continued A1c control to minimize the watermelon inspector effects of diabetes. Bring accuchecks to [...] of continued A1c control to minimize the watermelon inspector effects of diabetes. Bring accuchecks to office when instructed to do so. Check A1c about every 3-6 months. Take medication as prescribed. Get annual eye exam. Encouraged ALISSA/Statin if able to tolerate. Encouraged weight control and encouraged diabetic diet and exercise. Pt has been non-compliant with her medication. Encouraged to take as directed to decrease watermelon inspector sequela. Encouraged patient to continue low fat/low chol diet. Continue exercise. Increase good fats in the diet. Monitor labs as needed. 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 Bring accuchecks to office [...] of continued A1c control to minimize the prison effects of diabetes. Bring accuchecks to office [...] of continued A1c control to minimize the watermelon inspector effects of diabetes. Bring accuchecks to [...] 020 Assessment & Plan (01/28/2019 4:48 PM FOOD SERVICE SPECIALIST): Weight/BMI is in healthy range. Continue healthy [...] on file Legal Sex Female 9:21 PM FOOD SERVICE SPECIALIST Gender Identity Not on file Sexual Orientation [...] Bone Density 1 or 2 Site (10/27/2020) [facility] SCRIBED DXA T-SCORE -2.1 SCRIBED DXA Z-SCORE 2.1 Anatomical Region Laterality Modality Body N/A Radiographic Marjorie ging us Ericka DUMONT IMG DXA PROCEDURES Edited Result - Final * (ABNORMAL) Hemoglobin A1c (09/01/2020 9:34 AM CDT) [facility] Hgb A1C 5.7(H) <5.7 % of total [facility]gb [facility] Blood specimen (specimen) 09/01/2020 9:34 AM CDT 09/01/2020 9:37 AM CDT Narrative [facility] - 09/02/2020 11:35 AM CDT FASTING:YES FASTING: YES Ericka DUMONT LAB BLOOD ORDERABLES Final Result [facility] [address] [place] [address] * Lipid panel (09/01/2020 9:34 AM CDT) [facility] Cholesterol 190 <200 mg/dL [facility] [...] LDL-C. Lev GARZA et al. JEN. 2013;310(19): 6936-1963 (http://education.Trunk Club.Clout/faq/PAV589) Chol/HDL ratio 1.9 <5.0 (calc) [facility] DUMONT LAB BLOOD ORDERABLES Final Result [facility] [address] [place] [address] * (ABNORMAL) Comprehensive metabolic panel (09/01/2020 9:34 AM CDT) Pathologist [facility] Glucose 104(H) 65 - 99 mg/dL [facility] [...] approximately 13% higher for people identified as -Mozambican. eGFR NON-AFR. [place] 45(L) > OR = 60 mL/min/1. 73m2 [...] LAB BLOOD ORDERABLES Final Result [facility] [address] [address] * DIABETES EYE EXAM (04/10/2019) Historical Provider HEALTH MAINTENANCE Edited Result - Final * Microalbumin / creatinine ratio, urine, random (04/16/2018 7:50 AM CDT) CREATININE, RANDOM URINE 136 20 - 275 mg/dL [facility] HISTORICAL RESULTS MICROALBUMIN 3.3 See Note: mg/dL [facility] HISTORICAL RESULTS Comment: Reference Range: Reference Range Not established MICROALBUMIN/CREAT ININE RATIO, RANDOM URINE 24 <30 mcg/mg creat [facility] HISTORICAL RESULTS Comment: The ADA defines [...] AM CDT 04/17/2018 12:15 PM CDT Narrative [facility] HISTORICAL RESULTS - 04/17/2018 11:54 AM CDT 0; FASTING; 0; 0; 0; 0 FASTING:YES FASTING: YES PERFORMING LAB: [place], [facility] [address] [place] [address] Jay Pride D.O., MPH Historical Provider LAB URINE ORDERABLES Meghan quiñones Result [facility] HISTORICAL RESULTS from Last 3 Months or Most Recently Relevant to Health Maintenance Insurance [employer] MEDICARE HMO
--- OUTSIDE RECORDS SUMMARY | 2024-07-09 11:24 | XMS_ITS | Referral Summary ---
Author Organization [facility] [facility] Address [address] [place] [address] Care Team Providers Care Agricultural Education Professor Name Role Phone Unavailable Primary Care Provider [...] regimen Assessment & Plan (02/03/2019 3:25 PM PIECE HAND): Sxs most consistent with allergies vs common [...] of continued A1c control to minimize the fpc effects of diabetes. Bring accuchecks to office when instructed to do so. Check A1c about every 3-6 months. Take medication as prescribed. Get annual eye exam. Encouraged LAISSA/Statin if able to tolerate. Encouraged weight control and encouraged diabetic diet and exercise. Avoid nephrotoxic drugs including NSAIDs. Monitor labs. Continue with the metformin ALISSA-inhibitor Assessment & Plan (08/29/2020 10:23 PM CDT): Stressed importance of continued A1c control to minimize the intermodal dispatcher effects of diabetes. Bring accuchecks to office [...] of continued A1c control to minimize the fpc effects of diabetes. Bring accuchecks to office when instructed to do so. Check A1c about every 3-6 months. Take medication as prescribed. Get annual eye exam. Encouraged ALISSA/Statin if able to tolerate. Encouraged weight control and encouraged diabetic diet and exercise. Continue metformin Assessment & Plan (11/03/2018 10:41 PM CDT): Stressed importance of continued A1c control to minimize the fpc effects of diabetes. Bring accuchecks to office [...] of continued A1c control to minimize the intermodal dispatcher effects of diabetes. Bring accuchecks to office [...] of continued A1c control to minimize the intermodal dispatcher effects of diabetes. Bring accuchecks to office when instructed to do so. Check A1c about every 3-6 months. Take medication as prescribed. Get annual eye exam. Encouraged ALISSA/Statin if able to tolerate. Encouraged weight control and encouraged diabetic diet and exercise. Pt has been non-compliant with her medication. Encouraged to take as directed to decrease intermodal dispatcher sequela. Encouraged patient to continue low fat/low chol diet. Continue exercise. Increase good fats in the diet. Monitor labs as needed. 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 Bring accuchecks to office [...] of continued A1c control to minimize the fpc effects of diabetes. Bring accuchecks to office [...] of continued A1c control to minimize the intermodal dispatcher effects of diabetes. Bring accuchecks to office [...] 020 Assessment & Plan (01/28/2019 4:48 PM PIECE HAND): Weight/BMI is in healthy range. Continue healthy [...] on file Legal Sex Female 9:21 PM PIECE HAND Gender Identity Not on file Sexual Orientation [...] Bone Density 1 or 2 Site (10/27/2020) [facility] SCRIBED DXA T-SCORE -2.1 SCRIBED DXA Z-SCORE 2.1 Anatomical Region Laterality Modality Body N/A Radiographic Marjorie ging Ericka DUMONT IMG DXA PROCEDURES Edited Result - Final * (ABNORMAL) Hemoglobin A1c (09/01/2020 9:34 AM CDT) [facility] Hgb A1C 5.7(H) <5.7 % of total Hgb [facility] Blood specimen (specimen) 09/01/2020 9:34 AM CDT 09/01/2020 9:37 AM CDT Narrative [facility] - 09/02/2020 11:35 AM CDT FASTING:YES FASTING: YES us Ericka DUMONT LAB BLOOD ORDERABLES Final Result [facility] [address] [place] [address] * Lipid panel (09/01/2020 9:34 AM CDT) [facility] Cholesterol 190 <200 mg/dL [facility] [...] LDL-C. Lev GARZA et al. JEN. 2013;310(19): 5584-9241 (http://education.QMedic/faq/FBF745) Chol/HDL ratio 1.9 <5.0 (calc) [facility] Non-HDL, (LDL+VLDL) 91 <130 mg/dL (calc) [facility] Comment: For patients with diabetes plus 1 major ASCVD risk factor, treating to a non-HDL-C goal of <100 mg/dL (LDL-C of <70 mg/dL) is considered a therapeutic option. 09/01/2020 9:34 AM CDT 09/01/2020 9:37 AM CDT Narrative [facility] - 09/02/2020 11:35 AM CDT FASTING:YES FASTING: YES Ericka DUMONT LAB BLOOD ORDERABLES Final Result [facility] [address] [place] [address] * (ABNORMAL) Comprehensive metabolic panel (09/01/2020 9:34 AM CDT) Pathologist [facility] Glucose 104(H) 65 - 99 mg/dL [facility] [...] approximately 13% higher for people identified as -Northern Irish. eGFR NON-AFR. SWISS 45(L) > OR = 60 mL/min/1. 73m2 [...] BLOOD ORDERABLES Final Result [facility] [address] [address] * DIABETES EYE EXAM (04/10/2019) Historical Provider HEALTH MAINTENANCE Edited Result - Final * Microalbumin / creatinine ratio, urine, random (04/16/2018 7:50 AM CDT) CREATININE, RANDOM URINE 136 20 - 275 mg/dL [facility] HISTORICAL RESULTS MICROALBUMIN 3.3 See Note: mg/dL [facility] HISTORICAL RESULTS Comment: Reference Range: Reference Range Not established MICROALBUMIN/CREAT ININE RATIO, RANDOM URINE 24 <30 mcg/mg creat [facility] HISTORICAL RESULTS Comment: The ADA defines [...] AM CDT 04/17/2018 12:15 PM CDT Narrative [facility] HISTORICAL RESULTS - 04/17/2018 11:54 AM CDT 0; FASTING; 0; 0; 0; 0 FASTING:YES FASTING: YES PERFORMING LAB: [place], [facility] [address], [place] [address] Jay Pride D.O., MPH Historical Provider LAB URINE ORDERABLES Meghan quiñones Result [facility] HISTORICAL RESULTS from Last 3 Months or Most Recently Relevant to Health Maintenance Insurance MEDICARE HMO
--- OUTSIDE RECORDS SUMMARY | 2024-07-09 11:24 | XMS_ITS | Encounter Summary ---
Author Organization [facility] Care Team Providers Care Certifed Refrigeration Operator Name Role Phone Ericka Perera Primary Care Provider [phone] Jimenez Tavarez MD Primary Care Provider [phone] Ericka Perera Primary Care Provider [phone] Encounter Details Date Type Department Care Team (Latest Contact Info) Description 01/03/2018 Orders Only [facility] ProviderJenn MD [address] [place] [address] Social History Tobacco Use Types Packs/Day Years Used Date Smoking Tobacco: Never Assessed Comments Unknown Sex and Gender Information Value Date Recorded Sex Assigned at Not on file Legal Sex Female 9:21 PM COPPER PLATE LITHOGRAPHER Gender Identity Not on file Sexual Orientation Not on file documented as of this encounter Plan of Treatment Not on file documented as of this encounter Procedures Procedure Name Priority Date/Time Associated Diagnosis Comments SCAN - LABS 01/04/2018 12:00 AM COPPER PLATE LITHOGRAPHER documented in this encounter Results * SCAN - LABS (01/04/2018 12:00 AM COPPER PLATE LITHOGRAPHER) Narrative 01/04/2018 12:00 AM COPPER PLATE LITHOGRAPHER Ordered by an unspecified provider. Historical Provider Final Res ult documented in this encounter Visit Diagnoses Not on filedocumented in this encounter Care Teams Certifed Refrigeration Operator Relationship Specialty Start Date End Date Ericak Perera PA [address] [place] [address] PCP - General Internal Medicine 07/24/18 07/14/21 Jimenez Tavarez MD [address] [place] [address] PCP - General Emergency Medicine 09/27/21 11/28/21 Ericka Perera PA [address] [place] [address] PCP - General Internal Medicine 11/29/21 11/29/21 documented as of this encounter
--- OUTSIDE RECORDS SUMMARY | 2024-07-09 11:24 | XMS_ITS | CONTINUITY OF CARE DOCUMENT ---
Author Name humberto paul Address Unknown Organization [facility] Address [address] [place] [address] Phone [phone] Care Team Providers Care Gate Manager Name Role Phone Mikhail MCFADDEN, Rosemary Unavailable SARA MURO MD Unavailable [phone] SARA MURO MD Unavailable [phone] PROBLEMS Condition Status Date Provider Notes Fatigue [...] In-person encounter Office Visit Rosemary Elizondo MD [facility] - In-person encounter Office Visit Rosemary Elizondo MD [facility] Cardiology examination - In-person encounter Office Visit Rosemary Elizondo MD [facility] CKD stage 3Diabetes mellitus, type 2Hx of SeizureEdema, anklesShortness of breath VITAL SIGNS Date Observation Value Provider Body Mass Index (Ratio) 20.18 kg/m2 Lawson Elizondo MD blood pressure, diastolic 75 mm[Hg] Kenneth landerosn Srivastava blood pressure, systolic 135 mm[Hg] Karyn torres Srivastava oxygen saturation, oximetry 95 % [facility] pulse rate 87 /min [facility] blood pressure, cuff size regular Kenneth pia Srivastava weight E&M 117.6 [lb_av] [facility]astava height E&M 64 [in_i] [facility] Srivastava Body Mass Index (Ratio) 21.83 kg/m2 Lawson Elizondo MD blood pressure, diastolic 66 mm[Hg] Li nkLogic blood pressure, systolic 134 mm[Hg] Arpita kLogic blood pressure, cuff size regular Ta bitamelia Fernando blood pressure, diastolic 66 mm[Hg] Ta bitha Fernando blood pressure, systolic 134 mm[Hg] [facility] oxygen saturation, oximetry 99 % [facility] respiratory rate E&M 12 /min Cheri Granby pulse rate 89 /min Cheri Gran[place] weight E&M 127.2 [lb_av] Cheri Granby height E&M 64 [in_i] Cheri Granby Body Mass Index (Ratio) 24.37 kg/m2 Lawson Elizondo MD blood pressure, diastolic 62 mm[Hg] Li nkLogjuana blood pressure, systolic 116 mm[Hg] Arpita kLogic blood pressure, cuff size regular Ca therine [place] blood pressure, diastolic 62 mm[Hg] Ca therine [place] blood pressure, systolic 116 mm[Hg] Cat herine [place] pulse rate 90 /min Lucina [place] oxygen saturation, oximetry 96 % Lucina Fitz respiratory rate E&M 16 /min Sherry ne [place] weight E&M 142 [lb_av] Lucina Fitz height E&M 64 [in_i] Lucina [place] ALLERGIES No Known Drug Allergies HISTORY OF [...] mouth once a day 06/20 - 02/16 Roesmary Elizondo MD meclizine 25 mg tablet completed Take 1 tablet by mouth twice a day as needed for dizziness 06/20 - 02/16 Rosemary Elizondo MD meclizine 25 mg tablet completed - 06/20 Julius Garcia hydrochlorothiazide 25 mg tablet completed TAKE 1 TABLET BY MOUTH EVERY DAY IN THE MORNING - 06/20 Julius Garcia Flovent HFA 110 mcg/actuation HFA aerosol inhaler active Lucina [place] phenytoin sodium extended 100 mg capsule completed TAKE 1 CAPSULE BY MOUTH EVERY MORNING, AT NOON, AND TAKE 2 CAPSULES AT BEDTIME - 06/20 Julius Garcia loratadine 10 mg tablet completed TAKE 1 TABLET BY MOUTH EVERY DAY - 06/20 Julius Garcia fluticasone propionate 50 mcg/actuation spray,suspension active Lucina [place] albuterol sulfate 90 mcg/actuation HFA aerosol inhaler [...] Payer name Policy type / Coverage type [place] [facility] [id number] ADVANCE DIRECTIVES Name Date DISCUSSED - NO DECISION MADE TREATMENT PLAN Date Name Performer [id number],S, Julius Wyattkeron i [id number],S, Julius Ewelina i [id number],S, Julius Ewelina i [id number],S, Julius Ewelina i [id number],S, Julius Ewelina i Cardiology Rosemary Elizondo MD [...]
[2024-07-09 11:26] LABS: D Dimer 0.47 ug/mL (<0.48)
--- NOTE | 2024-07-09 11:26 | PC.NURSE ---
Pt. to x-ray
--- NOTE | 2024-07-09 12:10 | ECG_ITS ---
Test Date: 2024-07-09 12:41:47 Measurements Intervals [place] Rate: 82 P: 83 MO: 166 QRS: 77 QRSD: 122 T: 65 QT: 373 QTc: 436 Interpretive Statements SINUS RHYTHM WITH OCCASIONAL SUPRAVENTRICULAR PREMATURE COMPLEXES RIGHT BUNDLE BRANCH BLOCK BASELINE ARTIFACT- I, II, AVR, V2 ABNORMAL ECG Compared to ECG 07/09/2024 09:53:02 HEART RATE HAS DECREASED Electronically Signed On 07-09-2024 12:54:22 CDT by Reji Collier D.O.
[2024-07-09 13:01] LABS: Troponin I < 0.012 ng/mL (0.000-0.034)
--- NOTE | 2024-07-09 13:21 | ED.CHESTPAIN ---
HPI - Chest Pain General Chief Complaint: Chest Pain Stated Complaint: INTERMITTENT CHEST PAIN Time Seen by Provider: 07/09/24 10:39 History of Present Illness HPI narrative: Patient presents here with intermittent chest pain, ongoing for the past month. Denies any difficulty breathing, she does have history of asthma and was here 2 weeks ago for shortness of breath and was treated for that but does not have any shortness of breath now, nor pain with deep breathing, history of blood clots, lower extremity swelling or tenderness. Related Data Home Medications ?Medication ?Instructions ?Recorded ?Confirmed ?Last Taken ?Type inhalational spacing device 09/27/19 04/23/24 Unknown History ([facility] spacer) atorvastatin 40 mg tablet (Lipitor) 40 mg PO DAILY 07/14/23 04/23/24 Unknown History losartan 100 1 tablet PO DAILY 04/03/24 04/23/24 Unknown History mg-hydrochlorothiazide 25 mg tablet meclizine 25 mg tablet 25 mg PO QID PRN dizziness 04/03/24 04/23/24 Unknown History budesonide-formoterol HFA 80 inhalation 06/02/24 Unknown History mcg-4.5 mcg/actuation aerosol inhaler (Breyna) Allergies Allergy/AdvReac Type Severity Reaction Status Date / Time No Known Allergies Allergy Verified 07/09/24 09:46 Review of Systems Review of Systems: All systems reviewed & are unremarkable except as noted in HPI and below PMFSH Past Medical History Medical History 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 She has not had a seizure in 15 years. 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 She does not feel she would want have cardiopulmonary resuscitation if her heart were to stop. She would not want to be on a ventilator even for short term. Smoking status: Never smoker Alcohol intake: never Substance use: never Do You Feel Safe in your Home?: Yes Lack of Transportation: No Lack of Food: Never True Current Housing: I Have Housing Concerned About Future Housing: No Difficulty Paying Gas/Electric Bills: No Difficulty Paying for Meds: No Currently Unemployed: No Education: Grade School Difficulty w/ Childcare or Family Care: No Additional living arrangements comments: The patient lives in her own home. Her adult son lives with her. She has 2 daughters and 1 son. She is independent in her activities of daily living and does her own lawn and house care. Additional occupation/education comments: Homemaker Gender identity (if verbalized by the patient): Female Spiritual care concerns: No Exam Narrative: EXAMINATION OF ORGAN SYSTEMS/BODY AREAS: Constitutional: Vital signs per nursing GENERAL:[No acute distress, non-toxic appearing.] HEAD: Normal with no signs of head trauma. EYES: EOMI, conjunctiva normal ENT: Hearing grossly intact LUNGS: Nonlabored breathing. Clear to auscultation bilaterally. HEART: [Regular rate and rhythm], normal bilateral radial and DP pulses ABD: [Soft], [nontender to palpation] EXT: Normal range of motion SKIN: [No rashes or lesions.] NEURO: [Alert and oriented x 3. No gross focal sensory or strength deficits.] PSYCH: Normal affect Course Vital Signs Vital signs: Vital Signs Temperature 98.2 F 07/09/24 09:47 Pulse Rate 113 H 07/09/24 09:47 Respiratory Rate 18 07/09/24 09:47 Blood Pressure 174/80 H 07/09/24 09:47 Pulse Oximetry 96 07/09/24 09:47 Oxygen Delivery Room Air 07/09/24 09:47 Temperature 98.2 F 07/09/24 09:47 Pulse Rate 99 07/09/24 10:49 Respiratory Rate 18 07/09/24 10:49 Blood Pressure 155/79 H 07/09/24 10:49 Pulse Oximetry 95 07/09/24 10:49 Oxygen Delivery Room Air 07/09/24 10:49 MDM - Chest Pain MDM Narrative Medical decision making narrative: ED COURSE AND MEDICAL DECISION MAKINF presenting with chest pain. EKG done in triage negative for acute ischemic changes. Cardiac workup is initiated. EKG: Performed in triage and interpreted by me. Sinus tachycardia rate 108. Normal axis. WV normal. Right bundle-branch block. QTc normal. No pathologic Q waves. No ST segment elevation or depression to suggest acute ischemia. Compared to prior EKG appears similar. 3 hour repeat EKG interpreted by myself shows sinus rhythm rate 82, WV 166, QRS 122, QTC 436, no ST elevations depressions size acute ischemia or arrhythmia. Unchanged from prior EKG. HEART score is 3 with no acute ischemic changes on EKG and negative troponin making ACS unlikely. Wells low risk with negative D-dimer making PE unlikely. Presentation not consistent with dissection or aneurysm without radiation of pain or pulse deficits. CXR negative for mediastinal widening. No abdominal pain or signs of sepsis that would be concerning for esophageal perforation or mediastinitis. No cardiomegaly or JVD to suggest pericardial effusion/tamponade. On repeat evaluation just prior to discharge, the patient is no acute distress. I had a long discussion with the patient and with shared decision making, she and her daughter at bedside comfortable with outpatient management. She was given clear return instructions by myself in person as well as on discharge paperwork. Lab Data 07/09/24 09:56 07/09/24 09:56 Labs: Lab Results 07/09/24 07/09/24 Range/Units 09:56 12:27 WBC 6.3 (4.5-10.0) K/mm3 RBC 4.40 (4.2-5.4) M/mm3 Hgb 13.6 (12.0-15.0) g/dL Hct 42.9 (37.0-47.0) % MCV 97.5 (80-100) fl MCH 30.9 (26-34) pg MCHC 31.7 L (32-36) g/dl RDW 13.4 (11.5-14.5) % Plt Count 201 (150-375) k/mm3 MPV 9.8 (7.4-10.4) fl Immature Gran % (Auto) 0.3 (0-0.5) % Neut % (Auto) 72.5 (45.5-73.1) % Lymph % (Auto) 18.4 (18.3-44.2) % Randolph % (Auto) 6.2 (2.6-8.5) % Eos % (Auto) 2.1 (0-4.4) % Baso % (Auto) 0.5 (0.2-1.2) % Lymph # (Auto) 1.15 (0.9-3.2) K/mm3 Randolph # (Auto) 0.4 (0.1-0.6) K/mm3 Eos # (Auto) 0.1 (0-0.3) K/mm3 Baso # (Auto) 0.0 (0.0-0.1) K/mm3 Abs Immat Gran (auto) 0.02 (0.00-0.031) K/mm3 Absolute Neuts (auto) 4.5 (1.3-6.7) K/mm3 Absolute Nucleated RBC 0.000 (0.0-0.012) K/mm3 Nucleated RBC % 0.0 (0.0-0.2) % PT 12.5 (11.1-14.7) Seconds INR 0.9 APTT 25.7 (22.3-36.8) Seconds D-Dimer 0.47 (<0.48) ug/mL Sodium 140 (137-145) mmol/L Potassium 4.3 (3.4-5.0) mmol/L Chloride 106 (98-107) mmol/L Carbon Dioxide 28 (22-30) mmol/L Anion Gap 6 (4-12) mmol/L BUN 14 D (7-17) mg/dL Creatinine 1.16 H (0.7-1.0) mg/dL Estim Creat Clear Calc 24 ml/min Estimated GFR 44 L (59 - ) Glucose 120 H (65-110) mg/dL Calcium 9.7 (8.4-10.2) mg/dL Total Bilirubin 1.0 (0.2-1.3) mg/dL AST 29 (14-36) U/L ALT 15 (6-35) U/L Alkaline Phosphatase 77 (38-126) U/L Troponin I < 0.012 < 0.012 (0.000-0.034) ng/mL Total Protein 7.1 (6.3-8.2) g/dL Albumin 4.3 (3.5-5.1) g/dL Lipase 20 L (23-300) U/L Discharge Plan Discharge Clinical Impression: Left-sided chest pain Patient Disposition: Home Condition: Stable Instructions: Chest Pain (ED) Additional Instructions: Please follow up with your doctor; you can always return for any further issues. Patient Language: Bhutanese Prescriptions: No Action budesonide-formoterol [Breyna] 80-4.5 mcg/actuation HFA aerosol inhaler INHALATION cephalexin 500 mg capsule 500 mg PO Q8H Qty: 21 0RF mupirocin [Centany] 2 % ointment 1 applic topical BID Qty: 22 0RF Rx Instructions: apply to left upper arm 2 times daily prednisone 20 mg tablet 20 mg PO BID Qty: 10 0RF Rx Instructions: start tomorrow take with food losartan-hydrochlorothiazide 100-25 mg tablet 1 tablet PO DAILY meclizine 25 mg tablet 25 mg PO QID PRN (Reason: dizziness) atorvastatin [Lipitor] 40 mg tablet 40 mg PO DAILY (DME) Urbano Patel [facility] Spacer MISCELLANEOUS Dulera 100-5 mcg/actuation HFA aerosol inhaler 2 puff inhalation Q12H Qty: 13 11RF Rx Instructions: rinse and spit albuterol sulfate 90 mcg/actuation HFA aerosol inhaler See Rx Instructions .ROUTE .COMPLEX Qty: 9 3RF Dose Instruction: INHALE 2 PUFFS BY MOUTH EVERY 4 TO 6 HOURS NEEDED FOR SHORTNESS OF BREATH FOR WHEEZING Rx Instructions: INHALE 2 PUFFS BY MOUTH EVERY 4 TO 6 HOURS NEEDED FOR SHORTNESS OF BREATH FOR WHEEZING Follow-up/Referrals: Jimenez Tavarez MD [Primary Care Provider] - 2 Days
[2024-07-09 13:30] VITALS: BP 143/72; PULSE 85; RESP 14; O2SAT 96
== END 2024-07-09 13:32 | disposition home or self-care (01) ==
PROVIDERS: Emergency Provider Emergency Medicine; PCP Emergency Medicine
DX: R07.9 Chest pain, unspecified (principal); J45.909 Unspecified asthma, uncomplicated; I10 Essential (primary) hypertension; E11.9 Type 2 diabetes mellitus without complications; E78.5 Hyperlipidemia, unspecified; K21.9 Gastro-esophageal reflux disease without esophagitis
CPT/HCPCS: 36415; 71046; 80053; 83690; 84484; 85025; 85380; 85610; 85730; 93005; 99284; A9270

== ENCOUNTER 2024-09-23 01:13 | Emergency (ER) | payer MEDICARE, SELFPAY ==
--- NOTE | ~2024-09-23 | XR_ITS ---
EXAM/PROCEDURE: XR chest 2V - 09/23/2024 1:45 CDT HISTORY: 89 years old Female with sob TECHNIQUE: Two view(s) of the chest. COMPARISON: None available. FINDINGS: LUNGS/ PLEURA: Lungs are hyperinflated with flattening of the diaphragm and increased lung markings i n both upper lobes, findings seen with COPD. No focal consolidation. No appreciable pneumothorax or l arge pleural effusion. HEART/ MEDIASTINUM: Heart appears normal in size. BONES: Degenerative changes. OTHER: Visualized upper abdomen is unremarkable. IMPRESSION: No acute process. COPD. Reviewed, dictated and finalized at location A. IMPRESSION: No acute process. COPD.
[2024-09-23 01:14] VITALS: BP 158/82; PULSE 96; RESP 16; TEMP 36.7; O2SAT 95
--- OUTSIDE RECORDS SUMMARY | 2024-09-23 01:15 | XMS_ITS | Clinical Summary ---
Author Organization [facility] Address [address] [place] [address] Care Team Providers Care Casino Cashier Name Role Phone Unavailable Primary Care Provider Unavailabl e Social History Tobacco Use Types Packs/Day Years Used Date Smoking Tobacco: Never Assessed Comments Unknown Sex and Gender Information Value Date Recorded Sex Assigned at Not on file Legal Sex Female 5:41 PM CDT Gender Identity Not on file Sexual Orientation Not on file Last Filed Vital Signs Vital Sign Reading Time Taken Comments Blood Pressure 110/68 09/07/2016 7:22 AM CDT Pulse 88 09/07/2016 7:22 AM CDT Temperature - - Respiratory Rate - - Oxygen Saturation - - Inhaled Oxygen Concentration - - Weight 65.5 kg (144 lb 8 oz) 09/07/2016 7:22 AM CDT Height 161.3 cm (5' 3.5) 09/07/2016 7:22 AM CDT Body Mass Index 25.2 09/07/2016 7:22 AM CDT Plan of Treatment Health Maintenance Due Date Last Done Comments DTaP, Tdap and Td Vaccines ( 1 - Tdap) 1954 Pneumococcal Vaccine: 50+ Ye ars (1 of 1 - PCV) 05/30/1987 Zoster Vaccines (1 of 2) 05/30/1987 RSV Immunization or 60+ Years (1 - 1-dose 75+ series) 2012 COVID-19 Vaccine ( - 2023-2 5 season) 2023 Meningococcal B Vaccine Aged Out No l onger eligible based on patient's age to complete this topic Meningococcal Vaccine Aged Out No orin tamica eligible based on patient's age to complete this topic RSV Immunizations Under 20 Months Aged Out No longer eligible based on patient's age to complete this topic
--- OUTSIDE RECORDS SUMMARY | 2024-09-23 01:15 | XMS_ITS | Encounter Summary ---
Author Organization [facility] Care Team Providers Care Home Health Billing Specialist Name Role Phone Ericka Perera Primary Care Provider [phone]- [phone] Jimenez Tavarez MD Primary Care Provider Ericka Perera Primary Care Provider [phone]- [phone] Encounter Details Date Type Department Care Team (Latest Contact Info) Description 01/03/2018 Orders Only [facility]INCON[facility] ProviderJenn MD [address] [place] [id number] Social History Tobacco Use Types Packs/Day Years Used Date Smoking Tobacco: Never Assessed Comments Unknown Sex and Gender Information Value Date Recorded Sex Assigned at Not on file Legal Sex Female 9:21 PM HACK SAW OPERATOR Gender Identity Not on file Sexual Orientation Not on file documented as of this encounter Plan of Treatment Not on file documented as of this encounter Procedures Procedure Name Priority Date/Time Associated Diagnosis Comments SCAN - LABS 01/04/2018 12:00 AM HACK SAW OPERATOR documented in this encounter Results * SCAN - LABS (01/04/2018 12:00 AM HACK SAW OPERATOR) Narrative 01/04/2018 12:00 AM HACK SAW OPERATOR Ordered by an unspecified provider. Historical Provider Final Res ult documented in this encounter Visit Diagnoses Not on filedocumented in this encounter Care Teams Home Health Billing Specialist Relationship Specialty Start Date End Date Ericka Perera PA [address] [place] [address] PCP - General Internal Medicine 07/24/18 07/14/21 Jimenez Tavarez MD [address] [place] [address] PCP - General Emergency Medicine 09/27/21 11/28/21 Ericka Perera PA [address] [place] [address] PCP - General Internal Medicine 11/29/21 11/29/21 documented as of this encounter
--- OUTSIDE RECORDS SUMMARY | 2024-09-23 01:15 | XMS_ITS | Clinical Summary ---
Author Organization [facility] Jennifer loo Address [address] [place] [id number] Phone Care Team Providers Care Guard Entrance Registrar Name Role Phone Unavailable Primary Care Provider Unavailabl e Allergies No known active allergies Medications simvastatin (ZOCOR) 80 MG tablet Take 80 mg by mouth every night Active cholecalciferol (VITAMIN D-3) 25 MCG (1000 UT) capsule Take 5,000 Units by mouth 1 (one) time each day Active Calcium Carbonate (CALCIUM 600 PO) Take 600 mg by mouth in the morning. Active hydroCHLOROthia zide (HYDRODIURIL) 25 MG tablet Take 25 mg by mouth 1 (one) time each day Active pyridoxine (VITAMIN B-6) 100 MG tablet Take 100 mg by mouth 1 (one) time each day Active meclizine (ANTIVERT) 25 MG tablet Take 25 mg by mouth in the morning and 25 mg at noon and 25 mg in the evening. Active losartan (COZAAR) 50 MG tablet Take 50 mg by mouth 1 (one) time each day Active budesonide-form oterol (SYMBICORT) 80-4.5 MCG/ACT inhaler Inhale 2 puffs in the morning and 2 puffs before bedtime. Active Active Problems Problem Noted Date Diagnosed Date Stage 3b chronic kidney disease 08/23/2022 Essential hypertension 12/01/2021 Microscopic hematuria 12/01/2021 Resolved Problems Problem Noted Date Diagnosed Date Resolved Date Serum creatinine raised 12/01/202108/06 Hyperlipidemia 12/01/2021 06/03/2024 Family History Medical History Relation Comments Diabetes Daughter Relation Status Comments Daughter Social History Tobacco Use Types Packs/Day Years Used Date Smoking Tobacco: Never Smokeless Tobacco: Never Tobacco Cessation:Counseling Given: Not Answered Comments Unknown Sex and Gender Information Value Date Recorded Sex Assigned at Not on file Legal Sex Female 12:40 PM MDT Gender Identity Not on file Sexual Orientation Not on file Last Filed Vital Signs Vital Sign Reading Time Taken Comments Blood Pressure 120/64 12/07/2023 1:05 PM CDT Pulse 102 12/07/2023 1:05 PM CDT Temperature - - Respiratory Rate - - Oxygen Saturation 94% 10/06/2022 1:47 PM CDT Inhaled Oxygen Concentration - - Weight 49.4 kg (109 lb) 12/07/2023 1:05 PM CDT Height 160 cm (5' 3) 12/07/2023 1:05 PM CDT Body Mass Index 19.31 12/07/2023 1:05 PM CDT Plan of Treatment Upcoming Encounters Date Type Department Care Team ([facility] st Contact Info) Description 10/17/2024 1:20 PM CDT Office Visit [facility] [address] [place] [address] Paulette Vazquez NP [address] [address] Health Maintenance Due Date Last Done Comments Diabetic Foot Exam 05/30/1945 Ophthalmology Exam 05/30/1945 Pneumococcal PPSV23/PCV13 65 + Years / High and Highest Risk (2 of 4 - PPSV23, PCV20, or PCV21) 12/25/2018 10/30/2018, 11/10/2016 COVID-19 Vaccine (3 - 2023-2 5 season) 2023 04/30/2020, 04/02/2020 Influenza Vaccine (#1) 2024 9, 12/24/2014, 11/28/2012, Additional history exists Insurance [place] [id number]
--- OUTSIDE RECORDS SUMMARY | 2024-09-23 01:15 | XMS_ITS | Clinical Summary ---
Author Organization [facility] [place] [address] [place] [address] Care Team Providers Care Transportation Agent Name Role Phone Unavailable Primary Care Provider [...] regimen Assessment & Plan (02/03/2019 3:25 PM BAND MACHINE OPERATOR): Sxs most consistent with allergies vs common [...] of continued A1c control to minimize the joint terminal attack controller effects of diabetes. Bring accuchecks to office [...] of continued A1c control to minimize the residential effects of diabetes. Bring accuchecks to office [...] of continued A1c control to minimize the joint terminal attack controller effects of diabetes. Bring accuchecks to office when instructed to do so. Check A1c about every 3-6 months. Take medication as prescribed. Get annual eye exam. Encouraged ALISSA/Statin if able to tolerate. Encouraged weight control and encouraged diabetic diet and exercise. Continue metformin Assessment & Plan (11/03/2018 10:41 PM CDT): Stressed importance of continued A1c control to minimize the joint terminal attack controller effects of diabetes. Bring accuchecks to office [...] of continued A1c control to minimize the joint terminal attack controller effects of diabetes. Bring accuchecks to office [...] of continued A1c control to minimize the joint terminal attack controller effects of diabetes. Bring accuchecks to office when instructed to do so. Check A1c about every 3-6 months. Take medication as prescribed. Get annual eye exam. Encouraged ALISSA/Statin if able to tolerate. Encouraged weight control and encouraged diabetic diet and exercise. Pt has been non-compliant with her medication. Encouraged to take as directed to decrease residential sequela. Encouraged patient to continue low fat/low chol diet. Continue exercise. Increase good fats in the diet. Monitor labs as needed. 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 Bring accuchecks to office [...] of continued A1c control to minimize the residential effects of diabetes. Bring accuchecks to office [...] of continued A1c control to minimize the joint terminal attack controller effects of diabetes. Bring accuchecks to office [...] 020 Assessment & Plan (01/28/2019 4:48 PM BAND MACHINE OPERATOR): Weight/BMI is in healthy range. Continue healthy [...] on file Legal Sex Female 9:21 PM BAND MACHINE OPERATOR Gender Identity Not on file Sexual [...] 11/26/2021 11/26/2020, 08/06, 12/03/2019, Additional history exists Osteoporosis Screening-Bone Density Scan 10/27/2022 10/27/2020 Covid-19 Vaccine (2023-2 5 season) 2023 04/30/2020, 04/02/2020 Influenza Vaccine (#1) 2024 , 12/03/2019, 10/22/2018, Additional history exists Pneumococcal vaccine 65+ Completed 021, 10/30/2018, 11/10/2016 Procedures Procedure Name Priority Date/Time Associated Diagnosis [...] Bone Density 1 or 2 Site (10/27/2020) [facility] SCRIBED DXA T-SCORE -2.1 SCRIBED DXA Z-SCORE 2.1 Anatomical Region Laterality Modality Body N/A Radiographic Marjorie ging Ericka DUMONT IMG DXA PROCEDURES Edited Result - Final * (ABNORMAL) Hemoglobin A1c (09/01/2020 9:34 AM CDT) [facility] Hgb A1C 5.7(H) <5.7 % of total Hgb [facility] Blood specimen (specimen) 09/01/2020 9:34 AM CDT 09/01/2020 9:37 AM CDT Narrative [facility] - 09/02/2020 11:35 AM CDT FASTING:YES FASTING: YES us Ericka DUMONT LAB BLOOD ORDERABLES Final Result [facility] [address] [place] [address] * Lipid panel (09/01/2020 9:34 AM CDT) [facility] Cholesterol 190 <200 mg/dL [facility] [...] equation in the estimation of LDL-C. Lev SS et al. JEN. 2013;310(19): 8522-0853 (http://education.[employer].GENWI/faq/EFU954) Chol/HDL ratio 1.9 <5.0 (calc) [facility] [...] LAB BLOOD ORDERABLES Final Result [facility] [address] [place] [address] * (ABNORMAL) Comprehensive metabolic panel (09/01/2020 9:34 AM CDT) [facility] Glucose 104(H) 65 - 99 mg/dL [facility] [...] approximately 13% higher for people identified as -Georgian. eGFR NON-AFR. DANISH 45(L) > OR = 60 mL/min/1. 73m2 [...] LAB BLOOD ORDERABLES Final Result [facility] [address] [facility] [place] [address] * DIABETES EYE EXAM (04/10/2019) Historical Provider HEALTH MAINTENANCE Edited Result - Final * Microalbumin / creatinine ratio, urine, random (04/16/2018 7:50 AM CDT) CREATININE, RANDOM URINE 136 20 - 275 mg/dL [facility] HISTORICAL RESULTS MICROALBUMIN 3.3 See Note: mg/dL [facility] HISTORICAL RESULTS Comment: Reference Range: Reference Range Not established MICROALBUMIN/CREAT ININE RATIO, RANDOM URINE 24 <30 mcg/mg creat [facility] HISTORICAL RESULTS Comment: The ADA defines [...] 04/17/2018 12:15 PM CDT Narrative [facility] HISTORICAL RESULTS - 04/17/2018 11:54 AM CDT 0; FASTING; 0; 0; 0; 0 FASTING:YES FASTING: YES PERFORMING LAB: [place], [email or web address] [address] [place] [address] Jay Pride D.O., MPH Historical Provider LAB URINE ORDERABLES Meghan quiñones Result [facility] HISTORICAL RESULTS from Last 3 Months or Most Recently Relevant to Health Maintenance Insurance [employer] [address]
--- NOTE | 2024-09-23 01:19 | ECG_ITS ---
Test Date: 2024-09-23 01:23:47 Measurements Intervals [place] Rate: 92 P: 74 ME: 174 QRS: 62 QRSD: 141 T: 50 QT: 359 QTc: 445 Interpretive Statements SINUS RHYTHM RIGHT BUNDLE BRANCH BLOCK BASELINE ARTIFACT- I, II, III, AVR, AVL ,AVF ABNORMAL ECG Compared to ECG 07/09/2024 12:41:47 No significant changes Electronically Signed On 09-23-2024 07:07:14 CDT by Reji Collier D.O.
[2024-09-23 04:34] VITALS: PULSE 84; O2SAT 96
[2024-09-23 04:48] LABS: Hematocrit 39.9 % (37.0-47.0); Hemoglobin 12.8 g/dL (12.0-15.0); Immature Granulocyte Percent A 0.2 % (0-0.5); Lymphocytes Absolute Auto 1.22 K/mm3 (0.9-3.2); Mean Corpuscular HGB Conc 32.1 g/dl (32-36); Mean Corpuscular Hemoglobin 31.0 pg (26-34); Mean Corpuscular Volume 96.6 fl (80-100); Nucleated Red Blood Cells Absolute Auto 0.000 K/mm3 (0.0-0.012); Nucleated Red Blood Cells Perc 0.0 % (0.0-0.2); Platelet Count Result 165 k/mm3 (150-375); Red Blood Count 4.13 M/mm3 (4.2-5.4); White Blood Count 6.3 K/mm3 (4.5-10.0)
[2024-09-23 05:03] LABS: Alanine Aminotransferase 14 U/L (6-35); Albumin Level 4.2 g/dL (3.5-5.1); Alkaline Phosphatase 75 U/L (38-126); Anion Gap 6 mmol/L (4-12); Aspartate Amino Transferase 25 U/L (14-36); Bilirubin,Total 0.8 mg/dL (0.2-1.3); Blood Urea Nitrogen 18 mg/dL (7-17); Calcium 9.6 mg/dL (8.4-10.2); Carbon Dioxide 29 mmol/L (22-30); Chloride 105 mmol/L (98-107); Estimated CRCL calculation 27 ml/min; Estimated Glomerular Filt Rate 56; Glucose 109 mg/dL (65-110); Potassium 3.7 mmol/L (3.4-5.0); Sodium 140 mmol/L (137-145); Total Protein 7.0 g/dL (6.3-8.2)
[2024-09-23 07:02] VITALS: BP 127/94; PULSE 79; RESP 17; O2SAT 96
--- NOTE | 2024-09-23 07:16 | ED_ITS ---
HPI - SOB/Dyspnea General Chief Complaint: Shortness of Breath/Dyspnea Stated Complaint: sob Time Seen by Provider: 09/23/24 07:03 Source: patient, RN notes reviewed and old records reviewed Mode of arrival: EMS Limitations: no limitations History of Present Illness HPI Narrative: This is an 89 year old female with history of asthma who presents for evaluation of shortness of breath. She states that she has asthma exacerbations due to smells. She states last night her granddaughter was cleaning and the smell of caused her to developed shortness of breath. She used her albuterol inhaler but she initially did not feel better. She called EMS and she felt better once she got in the ambulance. She states she did not receive any treatment for EMS. She denies cough, fever, chest pain, leg swelling. She reports her symptoms completely resolved and she is ready for discharge home. MD elicited complaint: shortness of breath Pertinent past history: asthma Related Data Home Medications ?Medication ?Instructions ?Recorded ?Confirmed ?Last Taken ?Type inhalational spacing device 09/27/19 09/09/24 Unknown History (Urbano Patel [facility] spacer) atorvastatin 40 mg tablet (Lipitor) 40 mg PO DAILY 07/14/23 09/09/24 Unknown History losartan 100 1 tablet PO DAILY 04/03/24 09/09/24 Unknown History mg-hydrochlorothiazide 25 mg tablet meclizine 25 mg tablet 25 mg PO QID PRN dizziness 04/03/24 09/09/24 Unknown History budesonide-formoterol HFA 80 inhalation 06/02/24 09/09/24 Unknown History mcg-4.5 mcg/actuation aerosol inhaler (Breyna) Allergies Allergy/AdvReac Type Severity Reaction Status Date / Time No Known Allergies Allergy Verified 09/09/24 15:31 [facility] Past Medical History Medical History 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 She has not had a seizure in 15 years. 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 She does not feel she would want have cardiopulmonary resuscitation if her heart were to stop. She would not want to be on a ventilator even for short term. Smoking status: Never smoker Alcohol intake: never Substance use: never Do You Feel Safe in your Home?: Yes Lack of Transportation: No Lack of Food: Never True Current Housing: I Have Housing Concerned About Future Housing: No Difficulty Paying Gas/Electric Bills: No Difficulty Paying for Meds: No Currently Unemployed: No Education: Grade School Difficulty w/ Childcare or Family Care: No Additional living arrangements comments: The patient lives in her own home. Her adult son lives with her. She has 2 daughters and 1 son. She is independent in her activities of daily living and does her own lawn and house care. Additional occupation/education comments: Homemaker Gender identity (if verbalized by the patient): Female Spiritual care concerns: No Exam 2 Const: General: healthy appearing, no acute distress and alert Nutritional Appearance: well nourished Orientation/consciousness: patient oriented x3 Limitations: no limitations HENMT: Mouth: Yes Normal oral and palatal mucosa present and Yes lip normal Eyes: EOM: EOMs intact bilaterally Chest: Chest palpation & inspection: normal inspection of the chest Resp: Effort & Inspection: normal respiratory effort Auscultation: clear to auscultation bilaterally Cardio: Rate: regular rate Rhythm: regular rhythm Heart sounds: Murmur heart sound present GI: GI Palp: Yes Soft to palpation, No Tenderness to palpation present (GI) and No Guarding due to palpation present (GI) Auscultation: normal bowel sounds Skin: General skin exam: normal color Rashes: no rashes Neuro: General: patient oriented x3, moves all extremities and CN's II-XI intact bilaterally Extrem: General: normal to inspection and no pedal edema Psych: Mental Status: mental status grossly normal Affect: normal affect Attitude: cooperative Course Reevaluation(s) Reevaluation #1: Patient is asking to be discharged. She states she is asymptomatic. Date: 09/23/24 Time: 07:17 Vital Signs Vital signs: Vital Signs Temperature 98.0 F 09/23/24 01:14 Pulse Rate 96 09/23/24 01:14 Respiratory Rate 16 09/23/24 01:14 Blood Pressure 158/82 H 09/23/24 01:14 Pulse Oximetry 95 09/23/24 01:14 Oxygen Delivery Room Air 09/23/24 01:14 Temperature 98.0 F 09/23/24 01:14 Pulse Rate 85 09/23/24 08:21 Respiratory Rate 18 09/23/24 08:21 Blood Pressure 145/80 H 09/23/24 08:21 Pulse Oximetry 97 09/23/24 08:21 Oxygen Delivery Room Air 09/23/24 04:34 MDM - SOB/Dyspnea Differential Diagnosis Differential diagnosis: Likely acute exacerbation of chronic obstructive airways disease, congestive heart failure, community acquired pneumonia, asthma with exacerbation and pulmonary embolism (less likely) Medical Records Attestation: I reviewed the patient's medical records. Lab Data Attestation: I reviewed the patient's lab results. 09/23/24 04:33 09/23/24 04:33 Labs: Lab Results 09/23/24 Range/Units 04:33 WBC 6.3 (4.5-10.0) K/mm3 RBC 4.13 L (4.2-5.4) M/mm3 Hgb 12.8 (12.0-15.0) g/dL Hct 39.9 (37.0-47.0) % MCV 96.6 (80-100) fl MCH 31.0 (26-34) pg MCHC 32.1 (32-36) g/dl RDW 13.4 (11.5-14.5) % Plt Count 165 (150-375) k/mm3 MPV 10.0 (7.4-10.4) fl Immature Gran % (Auto) 0.2 (0-0.5) % Neut % (Auto) 69.7 (45.5-73.1) % Lymph % (Auto) 19.5 (18.3-44.2) % [place] % (Auto) 7.0 (2.6-8.5) % Eos % (Auto) 3.0 (0-4.4) % Baso % (Auto) 0.6 (0.2-1.2) % Lymph # (Auto) 1.22 (0.9-3.2) K/mm3 [place] # (Auto) 0.4 (0.1-0.6) K/mm3 Eos # (Auto) 0.2 (0-0.3) K/mm3 Baso # (Auto) 0.0 (0.0-0.1) K/mm3 Abs Immat Gran (auto) 0.01 (0.00-0.031) K/mm3 Absolute Neuts (auto) 4.4 (1.3-6.7) K/mm3 Absolute Nucleated RBC 0.000 (0.0-0.012) K/mm3 Nucleated RBC % 0.0 (0.0-0.2) % Sodium 140 (137-145) mmol/L Potassium 3.7 (3.4-5.0) mmol/L Chloride 105 (98-107) mmol/L Carbon Dioxide 29 (22-30) mmol/L Anion Gap 6 (4-12) mmol/L BUN 18 H (7-17) mg/dL Creatinine 0.94 (0.7-1.0) mg/dL Estim Creat Clear Calc 27 ml/min Estimated GFR 56 L (59 - ) Glucose 109 (65-110) mg/dL Calcium 9.6 (8.4-10.2) mg/dL Total Bilirubin 0.8 (0.2-1.3) mg/dL AST 25 (14-36) U/L ALT 14 (6-35) U/L Alkaline Phosphatase 75 (38-126) U/L Total Protein 7.0 (6.3-8.2) g/dL Albumin 4.2 (3.5-5.1) g/dL Imaging Data Radiologist's impression: ITS Impressions Chest X-Ray 09/23/24 08:30 IMPRESSION: No acute process. COPD. ECG Data EKG #1: Attestation: I personally reviewed and interpreted this ECG as follows: ECG completion date: 09/23/24 ECG completion time: 01:23 EKG Interpretation: normal rate (92), sinus rhythm, RBBB and no acute changes Discharge Plan Discharge Clinical Impression: Acute dyspnea Patient Disposition: Home Condition: Stable Instructions: Antibiotic Form, Dyspnea (ED) Additional Instructions: If your symptoms return, return to ER. Follow up with your primary care provider and mason foreman/superintendant as needed. Patient Language: Yi Prescriptions: No Action budesonide-formoterol [Breyna] 80-4.5 mcg/actuation HFA aerosol inhaler INHALATION cephalexin 500 mg capsule 500 mg PO Q8H Qty: 21 0RF mupirocin [Centany] 2 % ointment 1 applic topical BID Qty: 22 0RF Rx Instructions: apply to left upper arm 2 times daily prednisone 20 mg tablet 20 mg PO BID Qty: 10 0RF Rx Instructions: start tomorrow take with food losartan-hydrochlorothiazide 100-25 mg tablet 1 tablet PO DAILY meclizine 25 mg tablet 25 mg PO QID PRN (Reason: dizziness) atorvastatin [Lipitor] 40 mg tablet 40 mg PO DAILY (DME) Urbano Patel [facility] Spacer MISCELLANEOUS albuterol sulfate 90 mcg/actuation HFA aerosol inhaler See Rx Instructions .ROUTE .COMPLEX Qty: 9 3RF Dose Instruction: INHALE 2 PUFFS BY MOUTH EVERY 4 TO 6 HOURS NEEDED FOR SHORTNESS OF BREATH FOR WHEEZING Rx Instructions: INHALE 2 PUFFS BY MOUTH EVERY 4 TO 6 HOURS NEEDED FOR SHORTNESS OF BREATH FOR WHEEZING fluticasone propion-salmeterol [Advair HFA] 115-21 mcg/actuation HFA aerosol inhaler 2 puff inhalation BID Qty: 12 5RF Rx Instructions: Rinse mouth and spit after each use Follow-up/Referrals: Jimenez Tavarez MD [Primary Care Provider] -
--- OUTSIDE RECORDS SUMMARY | 2024-09-23 07:27 | XMS_ITS | Clinical Summary ---
Author Organization [facility] [address] [facility] Address [address] [place] [address] Care Team Providers Care Synchro Assembler Name Role Phone Unavailable Primary Care Provider [...] regimen Assessment & Plan (02/03/2019 3:25 PM SALES AND MARKETING COORDINATOR): Sxs most consistent with allergies vs common [...] of continued A1c control to minimize the terminal press operator effects of diabetes. Bring accuchecks to office [...] of continued A1c control to minimize the long-term effects of diabetes. Bring accuchecks to office [...] of continued A1c control to minimize the terminal press operator effects of diabetes. Bring accuchecks to office when instructed to do so. Check A1c about every 3-6 months. Take medication as prescribed. Get annual eye exam. Encouraged ALISSA/Statin if able to tolerate. Encouraged weight control and encouraged diabetic diet and exercise. Continue metformin Assessment & Plan (11/03/2018 10:41 PM CDT): Stressed importance of continued A1c control to minimize the terminal press operator effects of diabetes. Bring accuchecks to office [...] of continued A1c control to minimize the terminal press operator effects of diabetes. Bring accuchecks to office [...] of continued A1c control to minimize the terminal press operator effects of diabetes. Bring accuchecks to office when instructed to do so. Check A1c about every 3-6 months. Take medication as prescribed. Get annual eye exam. Encouraged ALISSA/Statin if able to tolerate. Encouraged weight control and encouraged diabetic diet and exercise. Pt has been non-compliant with her medication. Encouraged to take as directed to decrease long-term sequela. Encouraged patient to continue low fat/low chol diet. Continue exercise. Increase good fats in the diet. Monitor labs as needed. 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 Bring accuchecks to office [...] of continued A1c control to minimize the long-term effects of diabetes. Bring accuchecks to office [...] of continued A1c control to minimize the terminal press operator effects of diabetes. Bring accuchecks to office when instructed to do so. Check A1c about every 3-6 months. Take medication as prescribed. Get annual eye exam. Encouraged ALISSA/Statin if able to tolerate. Encouraged weight control and encouraged diabetic diet and exercise. Avoid nephrotoxic drugs including NSAIDs. Monitor labs. History of colon polyps 10/30/2018 Overview (10/30/2018): Dr Paidlla 2013. Due to repeat in approx 2018 [...] 020 Assessment & Plan (01/28/2019 4:48 PM SALES AND MARKETING COORDINATOR): Weight/BMI is in healthy range. Continue healthy [...] on file Legal Sex Female 9:21 PM SALES AND MARKETING COORDINATOR Gender Identity Not on file Sexual Orientation [...] Bone Density 1 or 2 Site (10/27/2020) [facility] SCRIBED DXA T-SCORE -2.1 SCRIBED DXA Z-SCORE 2.1 Anatomical Region Laterality Modality Body N/A Radiographic Marjorie ging Ericka DUMONT IMG DXA PROCEDURES Edited Result - Final * (ABNORMAL) Hemoglobin A1c (09/01/2020 9:34 AM CDT) [facility] Hgb A1C 5.7(H) <5.7 % of total [facility]gb [facility] Blood specimen (specimen) 09/01/2020 9:34 AM CDT 09/01/2020 9:37 AM CDT Narrative [facility] - 09/02/2020 11:35 AM CDT FASTING:YES FASTING: YES us Ericka DUMONT LAB BLOOD ORDERABLES Final Result [employer] [address] [place] [address] * Lipid panel (09/01/2020 9:34 AM CDT) [facility] Cholesterol 190 <200 mg/dL [facility] [...] LDL-C. Lev SS et al. JEN. 2013;310(19): 9715-3474 (http://education.Notorious.GroupVisual.io/faq/DVI093) Chol/HDL ratio 1.9 <5.0 (calc) [facility] LAB BLOOD ORDERABLES Final Result [facility] [address] [place] [address] * (ABNORMAL) Comprehensive metabolic panel (09/01/2020 9:34 AM CDT) [facility] Glucose 104(H) 65 - 99 mg/dL [facility] [...] approximately 13% higher for people identified as -Estonian. eGFR NON-AFR. IRAQI 45(L) > OR = 60 mL/min/1. 73m2 [...] LAB BLOOD ORDERABLES Final Result [facility] [address] [address] [facility] [place] [address] * DIABETES EYE EXAM (04/10/2019) Historical Provider HEALTH MAINTENANCE Edited Result - Final * Microalbumin / creatinine ratio, urine, random (04/16/2018 7:50 AM CDT) CREATININE, RANDOM URINE 136 20 - 275 mg/dL [facility] HISTORICAL RESULTS MICROALBUMIN 3.3 See Note: mg/dL [facility] HISTORICAL RESULTS Comment: Reference Range: Reference Range Not established MICROALBUMIN/CREAT ININE RATIO, RANDOM URINE 24 <30 mcg/mg creat [facility] HISTORICAL RESULTS Comment: The ADA defines [...] AM CDT 04/17/2018 12:15 PM CDT Narrative [facility] HISTORICAL RESULTS - 04/17/2018 11:54 AM CDT 0; FASTING; 0; 0; 0; 0 FASTING:YES FASTING: YES PERFORMING LAB: [place], [facility] [address] [place] [address] Jay Pride D.O., MPH Historical Provider LAB URINE ORDERABLES Meghan quiñones Result [facility] HISTORICAL RESULTS from Last 3 Months or Most Recently Relevant to Health Maintenance Insurance [employer] HMO
--- OUTSIDE RECORDS SUMMARY | 2024-09-23 07:27 | XMS_ITS | Clinical Summary ---
Author Organization [facility] Address [address] [place] [address] Care Team Providers Care Software Project Engineer Name Role Phone Unavailable Primary Care Provider [...]
--- OUTSIDE RECORDS SUMMARY | 2024-09-23 07:27 | XMS_ITS | Clinical Summary ---
Author Organization [facility] Address [address] [place] [address] Phone Care Team Providers Care Body Trimmer Name Role Phone Unavailable Primary Care Provider [...] Upcoming Encounters Date Type Department Care Team ([facility] st Contact Info) Description 10/17/2024 1:20 PM CDT Office Visit [facility] [address] [facility] [address] [place] [address] Paulette Vazquez NP [address] [address] Health Maintenance Due Date Last Done Comments Diabetic Foot Exam 05/30/1945 Ophthalmology Exam 05/30/1945 Pneumococcal PPSV23/PCV13 65 + Years / High and Highest Risk (2 of 4 - PPSV23, PCV20, or PCV21) 12/25/2018 10/30/2018, 11/10/2016 COVID-19 Vaccine (3 - 2023-2 5 season) 2023 04/30/2020, 04/02/2020 Influenza Vaccine (#1) 2024 9, 12/24/2014, 11/28/2012, Additional history exists Insurance [place] [id number]
--- OUTSIDE RECORDS SUMMARY | 2024-09-23 07:28 | XMS_ITS | Encounter Summary ---
Author Organization [facility] Care Team Providers Care Senior Product Engineer Name Role Phone Ericka Perera Primary Care Provider [phone] Jimenez Tavarez MD Primary Care Provider [phone] Ericka Perera Primary Care Provider [phone] Encounter Details Date Type Department Care Team (Latest Contact Info) Description 01/03/2018 Orders Only [facility]INCON[facility] ProviderJenn MD [address] [place] [address] Social History Tobacco Use Types Packs/Day Years Used Date Smoking Tobacco: Never Assessed Comments Unknown Sex and Gender Information Value Date Recorded Sex Assigned at Not on file Legal Sex Female 9:21 PM DATABASE SUPPORT Gender Identity Not on file Sexual Orientation Not on file documented as of this encounter Plan of Treatment Not on file documented as of this encounter Procedures Procedure Name Priority Date/Time Associated Diagnosis Comments SCAN - LABS 01/04/2018 12:00 AM DATABASE SUPPORT documented in this encounter Results * SCAN - LABS (01/04/2018 12:00 AM DATABASE SUPPORT) Narrative 01/04/2018 12:00 AM DATABASE SUPPORT Ordered by an unspecified provider. Historical Provider Final Res ult documented in this encounter Visit Diagnoses Not on filedocumented in this encounter Care Teams Senior Product Engineer Relationship Specialty Start Date End Date Ericka Perera PA [address] [place] [address] PCP - General Internal Medicine 07/24/18 07/14/21 Jimenez Tavarez MD [address] [place] [address] PCP - General Emergency Medicine 09/27/21 11/28/21 Ericka Perera PA [address] [place] [address] PCP - General Internal Medicine 11/29/21 11/29/21 documented as of this encounter
[2024-09-23 08:21] VITALS: BP 145/80; PULSE 85; RESP 18; O2SAT 97
== END 2024-09-23 08:27 | disposition home or self-care (01) ==
LOC: ANHED 07:24
PROVIDERS: Student in an Organized Health Care Education/Training Program; Emergency Provider General Practice; PCP Emergency Medicine
DX: R06.00 Dyspnea, unspecified (principal); R94.31 Abnormal electrocardiogram [ECG] [EKG]; I10 Essential (primary) hypertension; E78.5 Hyperlipidemia, unspecified; E11.9 Type 2 diabetes mellitus without complications; Z87.442 Personal history of urinary calculi; K21.9 Gastro-esophageal reflux disease without esophagitis; J45.909 Unspecified asthma, uncomplicated
CPT/HCPCS: 36415; 71046; 80053; 85025; 93005; 99284